=== PATIENT | female | born 1985 | race Two or more races ===

== ENCOUNTER 2020-10-01 12:47 | Outpatient (REF) | payer OTHER, SELFPAY ==
--- NOTE | ~2020-10-01 | XR_ITS ---
EXAMINATION: PELVIS AND LUMBAR SPINE X-RAY CLINICAL INFORMATION: Low back pain COMPARISON: CT of the abdomen and pelvis May 2019 TECHNIQUE: One view of the pelvis and 3 views of the lumbar lumbar spine FINDINGS: Pelvis: Bone alignment is normal. No fracture or dislocation is seen. Joint spaces are normal. Soft tissues are normal. Lumbar spine: There may be a transitional vertebral body segment. Bone alignment is normal. No fracture or dislocation is seen. Disc spaces are normal. Paraspinal soft tissues are normal. XR/XR lumbar spine 2-3V IMPRESSION: Unremarkable exam.
--- NOTE | ~2020-10-01 | XR_ITS ---
EXAMINATION: PELVIS AND LUMBAR SPINE X-RAY CLINICAL INFORMATION: Low back pain COMPARISON: CT of the abdomen and pelvis May 2019 TECHNIQUE: One view of the pelvis and 3 views of the lumbar lumbar spine FINDINGS: Pelvis: Bone alignment is normal. No fracture or dislocation is seen. Joint spaces are normal. Soft tissues are normal. Lumbar spine: There may be a transitional vertebral body segment. Bone alignment is normal. No fracture or dislocation is seen. Disc spaces are normal. Paraspinal soft tissues are normal. XR/XR pelvis 1-2V IMPRESSION: Unremarkable exam.
== END 2020-10-01 12:48 | disposition home or self-care (01) ==
LOC: HO.HMGCX 12:47
PROVIDERS: PCP Nurse Practitioner Family; Visit Provider Hospitalist
DX: M54.5 Low back pain (principal); G89.29 Other chronic pain
CPT/HCPCS: 72100; 72170

== ENCOUNTER 2020-11-29 10:00 | Outpatient (RCR) | payer OTHER, SELFPAY ==
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
--- NOTE | 2020-11-29 10:40 | MHC.PT.DC ---
[facility] [place] Office [place] Office [place] Office [address] Dom Mendez [address] [phone] F: [phone] F: [phone] F: [phone] F: [phone] Physical Therapy Discharge Report Diagnosis: Low Back Pain Date of Surgery: N/A Date of Evaluation: 10/18/20 Date of Discharge: 11/29/20 Treatments to Date: 8 Cancellations to Date: 1 No Shows to Date: 0 Discharge Status: Achieved Goals Improved Function Independent with HEP Patient Elected to Stop Discharge Summary: 11/29/20 lumbar trunk ROM extension WNL, flexion WNL hip flexion 5/5, knee extension/flexion 5/5, ankle DF 5/5, hip abd 5/5. Pt reports she is having significant scary chest pain that is concerning to her. She requested to be d/c. She said I am really feeling much better Pt is d/c from skilled PT today with a printed HEP and theraband. We reviewed her HEP and she reports understanding of HEP. Electronically signed by: Chikis Dye PT DPT Please sign and return to therapist. Thank you for your referral.
== END 2020-11-29 13:16 | disposition home or self-care (01) ==
LOC: HO.PT 10:00
PROVIDERS: PCP Nurse Practitioner Family; Visit Provider Hospitalist
DX: M54.5 Low back pain (principal)
CPT/HCPCS: 97110; 97112; 97140; 97162; 97530

== ENCOUNTER 2020-12-03 06:55 | Outpatient (REF) | payer OTHER, SELFPAY ==
[2020-12-03 11:58] LABS: Alanine Aminotransferase 75 U/L (0-31); Albumin Level 4.3 g/dL (3.5-5.0); Alkaline Phosphatase 83 U/L (39-117); Anion Gap 15 (12-20); Aspartate Amino Transferase 46 U/L (5-31); Bilirubin Total 0.5 mg/dL (0.0-1.0); Blood Urea Nitrogen 11 mg/dL (9-16); Calcium 9.7 mg/dL (8.4-10.2); Carbon Dioxide 26 mmol/L (22-29); Chloride 102 mmol/L (96-108); Cholesterol 176 mg/dL; Estimated Glomerular Filt Rate > 60; Glucose Fasting 149 mg/dL (60-99); HDL Cholesterol 42 mg/dL; LDL Cholesterol Calculated 111 mg/dl; Potassium 4.5 mmol/L (3.3-5.1); Sodium 138 mmol/L (135-145); Total Protein 7.5 g/dL (6.5-8.0); Triglycerides 115 mg/dL
[2020-12-03 12:04] LABS: TSH reflex Free T4 1.49 uIU/mL (0.32-4.0)
== END 2020-12-03 06:56 | disposition home or self-care (01) ==
LOC: HO.HMGCLDS 06:55
PROVIDERS: PCP Nurse Practitioner Family; Visit Provider Nurse Practitioner Family
DX: Z00.00 Encounter for general adult medical examination without abnormal findings (principal)
CPT/HCPCS: 36415; 80053; 80061; 84443

== ENCOUNTER 2020-12-05 07:26 | Outpatient (REF) | payer OTHER, SELFPAY ==
[2020-12-05 11:53] LABS: Estimated Average Glucose 140 mg/dL; Hemoglobin A1c % 6.5 %
[2020-12-05 12:00] LABS: Hepatitis A Antibody IgM 0.16 Index (0-0.79); ~HepC Num1 0.07 S/CO (0.00-0.79); ~Hepatitis A Antibody IgM Nonreactive (Nonreactive); ~Hepatitis C Antibody Nonreactive (Nonreactive)
[2020-12-05 12:03] LABS: HBc Num1 0.03 S/CO (0.00-0.79); Hepatitis B Core Antibody Nonreactive (Nonreactive); Hepatitis B Surface Antigen Negative (Negative); ~Hepatitis B Surface Antibody REACTIVE (Nonreactive)
== END 2020-12-05 07:27 | disposition home or self-care (01) ==
LOC: HO.HMGCLDS 07:26
PROVIDERS: PCP Nurse Practitioner Family; Visit Provider Nurse Practitioner Family
DX: R73.01 Impaired fasting glucose (principal); R74.8 Abnormal levels of other serum enzymes
CPT/HCPCS: 36415; 83036; 86704; 86706; 86709; 86803; 87340

== ENCOUNTER 2020-12-18 09:12 | Outpatient (REF) | payer OTHER, SELFPAY ==
--- NOTE | ~2020-12-18 | US_ITS ---
EXAMINATION: US ABDOMEN COMPLETE CLINICAL INFORMATION: Abnormal levels of other serum enzymes. COMPARISON: Ultrasound abdomen complete dated 07/11/2019. CT abdomen and pelvis with intravenous contrast only dated 05/21/2019. TECHNIQUE: Real-time imaging of the abdominal viscera. FINDINGS: PANCREAS: Normal. There is a 1.4 x 0.7 x 1.7 cm hypoechoic lesion adjacent to the head of the pancreas probably representing a small lymph node. This is similar to previous exam. ABDOMINAL AORTA: The proximal, mid, and distal segments are normal in caliber. INFERIOR VENA CAVA: Visualized portions are normal. LIVER: Liver echotexture is slightly increased probably representing fatty infiltration. The liver is normal in size. The liver contour is normal. There is a 8 x 7 x 7 mm echogenic lesion in the right lobe of liver. This is not appreciated on previous exams 2018. There is no intrahepatic biliary duct dilatation seen. GALLBLADDER: The gallbladder is physiologically distended. There is a large 3 cm gallstone. No evidence of gallbladder wall thickening or pericholecystic fluid. COMMON BILE DUCT: Normal in caliber measuring 0.3 cm in diameter. RIGHT KIDNEY: Normal No hydronephrosis. No renal calculi or focal parenchymal lesions. The kidney measures 13.6 cm in maximum dimension. LEFT KIDNEY: There is a small cyst in the midpole measuring 8 x 6 x 8 mm. No hydronephrosis or renal calculi. The kidney measures 13.1 cm in maximum dimension. SPLEEN: Normal. The spleen measures 9.2 cm in maximum dimension. FREE FLUID: None. US/US abdomen complete IMPRESSION: Increased liver echotexture probably representing mild fatty infiltration. Newly appreciated 8 x 7 x 7 mm hyperechoic lesion in the right lobe of the liver, question representing a benign hemangioma. This could be confirmed with liver MRI. Gallstone. Small peripancreatic lymph node similar to previous exams.
== END 2020-12-18 09:13 | disposition home or self-care (01) ==
LOC: HO.US 09:12
PROVIDERS: Visit Provider Nurse Practitioner Family
DX: R74.8 Abnormal levels of other serum enzymes (principal)
CPT/HCPCS: 76700

== ENCOUNTER 2020-12-20 12:12 | Outpatient (REF) | payer OTHER, SELFPAY ==
--- NOTE | ~2020-12-20 | MR_ITS ---
EXAMINATION: MRI ABDOMEN WITHOUT AND WITH CONTRAST CLINICAL INFORMATION: Liver disease. Evaluate for fatty change. The report of ultrasound 12/18/2020 indicates 0.8 cm hyperechoic lesion in the right lobe of the liver. Further characterization requested. COMPARISON: Selected portions of ultrasound 12/18/2020. TECHNIQUE: Anatomic and fluid sensitive MR sequences were used to examine the abdomen. Imaging before and after the IV administration of 10 mL of Gadavist. FINDINGS: LIVER: The right lobe of the liver measures 21.9 cm. This is greater than 2 standard deviations above the mean expected. The liver contour is smooth. There is diffuse signal loss consistent with fatty change. There is no suspicious early enhancing liver lesion. There is an equivocal tiny signal abnormality in the periphery of the right lobe of the liver in the plane of the portal vein slightly posteriorly which is hypointense after contrast. This is equivocally hyperintense prior to contrast on T2 series. BILIARY TRACT: There is cholelithiasis. There is no biliary dilation. SPLEEN: The spleen measures approximately 10.5 cm which is within normal limits. No focal abnormality. PANCREAS: Normal. ADRENAL GLANDS: Normal. KIDNEYS: There is no dilation of the urinary collecting system on either side. There is a 1 cm cyst in the lower pole of the left kidney. This does not require any further evaluation. GASTROINTESTINAL TRACT: There is no definite bowel wall thickening. No small bowel dilation demonstrated. ABDOMINAL WALL: No significant hernia is appreciated. LYMPHOVASCULAR STRUCTURES AND FLUID: There is no abdominal aortic aneurysm. The portal vein enhances. There are no enlarged lymph nodes. There is no free fluid. MUSCULOSKELETAL: Probable hemangioma T12. VISUALIZED LOWER CHEST: No suspicious abnormality in the visualized lower chest. MR/MR abdomen wo/w con IMPRESSION: At least moderate hepatomegaly with fatty change. No suspicious early enhancing liver lesion. No suspicious correlate to the finding on ultrasound. There is an equivocal tiny signal abnormality in the right lobe which could be a cyst and has no suspicious features. Recommend a follow-up ultrasound in 6 months to reassess the sonographic finding.
== END 2020-12-20 12:13 | disposition home or self-care (01) ==
LOC: HO.MRI 12:12
PROVIDERS: Visit Provider Nurse Practitioner Family
DX: K76.9 Liver disease, unspecified (principal)
CPT/HCPCS: 74183; A9585

== ENCOUNTER 2020-12-28 10:53 | Outpatient (REF) | payer OTHER, SELFPAY ==
[2020-12-28 13:25] LABS: Glucose Fasting 115 mg/dL (60-99)
[2020-12-28 13:54] LABS: Syphilis Screen Nonreactive (Nonreactive)
[2020-12-29 02:30] LABS: CT PCR NOT DETECTED (Not Detect.); NG PCR NOT DETECTED (Not Detect.)
[2020-12-29 11:49] LABS: BV Int Neg Control Negative (Negative); BV Int Pos Control Positive (Positive)
[2021-01-01 04:46] LABS: HIV AB/AG Nonreactive (Nonreactive); HIV Num 1 0.08 S/CO (0.00-0.99)
== END 2020-12-28 10:54 | disposition home or self-care (01) ==
LOC: HO.LAB 10:53
PROVIDERS: PCP Nurse Practitioner Family; Visit Provider Advanced Practice Midwife
DX: Z01.419 Encounter for gynecological examination (general) (routine) without abnormal findings (principal); R73.01 Impaired fasting glucose; E66.01 Morbid (severe) obesity due to excess calories; Z68.43 Body mass index [BMI] 50.0-59.9, adult; Z20.2 Contact with and (suspected) exposure to infections with a predominantly sexual mode of transmission
CPT/HCPCS: 36415; 82947; 86780; 87389; 87480; 87491; 87510; 87591; 87660

== ENCOUNTER 2021-12-17 11:17 | Emergency (ER) | payer OTHER, SELFPAY ==
[2021-12-17 12:11] VITALS: BP 161/96; PULSE 77; RESP 18; TEMP 35.9; O2SAT 98; BMI 44.6
--- NOTE | 2021-12-17 13:45 | ED.GENADULT ---
HPI - General Adult General Chief complaint: General Medical Stated complaint: facial swelling Time Seen by Provider: 12/17/21 13:45 Source: patient Mode of arrival: ambulatory Limitations: no limitations History of Present Illness HPI narrative: 36-year-old female diagnosed with lupus in 2013 presents with 1 month of butterfly facial rash. Patient saw rheumatology once in 2013, but has had her lupus managed by her PCP and a courtesy bus driver. Loan Interviewer had prescribed steroid ointment for butterfly rash 4 years ago, she is trying the steroid ointment and it is not working. The rash is not itchy, not painful. Patient recently took a trip to [place], being in the sun made her rash worse. No fevers. No other complaints Related Data Previous Rx's Medication Instructions Recorded prednisone 20 mg tablet 20 mg PO DAILY 9 Days #18 tab 12/17/21 Allergies Allergy/AdvReac Type Severity Reaction Status Date / Time nickel [NICKEL] Allergy Unknown HIVES Verified 12/17/21 12:11 Nickel Allergy Unknown hives Uncoded 12/28/20 11:07 Review of Systems Constitutional: Constitutional: Denies body ache(s), Denies chills, Denies fatigue, Denies fever(s), Denies headache(s), Denies malaise and Denies weakness Eyes: Eyes: Denies diplopia ENT: Denies vertigo, Denies dizziness, Denies otalgia, Denies headache(s), Denies mouth pain, Denies post nasal drip, Denies sinus pain, Denies sinus pressure, Denies sore throat and Denies throat swelling Cardiovascular: Cardiovascular: Denies chest pain, Denies syncope, Denies leg edema, Denies lightheadedness, Denies Loss of Consciousness, Denies palpitations and Denies dyspnea Respiratory: Respiratory: Denies chest congestion, Denies cough and Denies dyspnea Gastrointestinal: Gastrointestinal: Denies abdominal pain, Denies hematochezia, Denies constipation, Denies diarrhea and Denies vomiting Musculoskeletal: Musculoskeletal: Reports no additional musculoskeletal complaints Integumentary/Breasts: Skin/Breast: Reports rash Neurologic: Denies confusion, Denies vertigo, Denies dizziness, Denies syncope, Denies headache(s) and Denies weakness Psychiatric: Psychiatric: Denies anxiety, Denies confusion and Denies depression Endocrine: Endocrine: Denies fatigue and Denies palpitations Allergic/Immunologic: Allergic/Immunologic: Denies throat swelling PMFSH Past Medical History Medical History Anxiety Carpal tunnel syndrome, bilateral Cervical cancer screening Depression Hidradenitis suppurativa Substance abuse Surgical History H/O tubal ligation Hx of section Family History Family History Mother Diabetes Hypertension Social History Social History (Updated 12/28/20 @ 11:08 by Sarwat Estrada CMA) Alcohol intake: current Alcohol intake frequency: holidays/special occasions only Patient Tobacco Use Status: Former Tobacco user Advance Directives: No Advance Directives Information Provided: No Gender identity: Female Physical Exam ED Vital Signs: Vital Signs - 24 hr 12/17/21 12:11 Temperature 96.6 F L Pulse Rate 77 Respiratory Rate 18 Blood Pressure 161/96 H Pulse Oximetry 98 BMI result Body Mass Index 44.6 Const General: No confusion Nutritional Appearance: well nourished Orientation/consciousness: No confusion Limitations: no limitations HENMT Head: Yes normal to inspection, Yes normocephalic and Yes atraumatic Ears: hearing grossly normal bilaterally, external ears normal, TM's normal bilaterally and EAC's normal General nose exam: Normal external nose present Face and sinus: Yes normal facial exam and Yes sinuses nontender Mouth: Normal oral and palatal mucosa present Throat: Yes posterior oropharynx normal Eyes Conjunctivae: conjunctivae normal Pupils: Equal, round and reactive pupils present EOM: EOMs intact bilaterally Neck Neck: Yes full ROM, Yes no lymphadenopathy and Yes supple Resp Effort & Inspection: normal respiratory effort and able to speak in complete sentences Auscultation: clear to auscultation bilaterally, no crackles, no rales, no rhonchi and no wheezes Cardio Rate: regular rate Rhythm: regular rhythm Heart sounds: S1 normal heart sound present and S2 normal heart sound present GI Inspection: Yes normal to inspection Palpation (GI): Soft to palpation, nontender, no guarding and not rigid Percussion: Yes normal to percussion Auscultation: normal bowel sounds Skin Other: Erythematous swollen butterfly rash sparing nasal folds bilateral cheeks Neuro General: No confusion Cranial nerves: Yes Equal, round and reactive pupils present Extrem General: Yes normal to inspection and Yes full ROM Psych Appearance: grossly normal Affect: normal affect Attitude: cooperative Thought process: Normal thought process present Course Course Course Narrative: 36-year-old female with past medical history of lupus which is managed by her primary care, presents for one-month malar rash in a butterfly distribution Referred patient to courtesy bus driver, patient has a follow-up appoint with her primary care provider at the end of the month, counseled her to discuss rheumatology referral at that time. Gave prednisone taper, return precautions of fever Discharge Plan Discharge Clinical Impression: Acute cutaneous lupus erythematosus Patient Disposition: Home, Self-Care Instructions: Autoimmune Disease (ED) Additional Instructions: Please call Dr Westfall, at [phone]. He has a courtesy bus driver, I have referred you to him, if you do not hear from him by tomorrow, please call for an appointment. I have prescribed a prednisone taper to her pharmacy, please take as directed Please keep your primary care appointment December 31, and discuss referral to a rehabilitation medicine physician at that time, and discuss any treatment your courtesy bus driver has recommended Please return to emergency room if you have fevers, worsening rash, chest pain, shortness of breath, or any other new or concerning symptoms Prescriptions: New prednisone 20 mg tablet 20 mg PO DAILY 9 Days Qty: 18 0RF Rx Instructions: Take 3 tablets day 1, 2, and 3, take 2 tablets day 4, 5, 6, take 1 tablet days 7, 8, 9 Referrals: Pablo Westfall MD [Physician] - Interventions: ED Discharge Assessment Last Done: 12/17/21 14:17 Discharge Date/Time: 12/17/21 14:18
== END 2021-12-17 14:18 | disposition home or self-care (01) ==
PROVIDERS: Emergency Provider Emergency Medicine; PCP Nurse Practitioner Family
DX: L93.0 Discoid lupus erythematosus (principal); Z87.891 Personal history of nicotine dependence
CPT/HCPCS: 99283

== ENCOUNTER 2022-01-08 07:00 | Emergency (ER) | payer OTHER, SELFPAY ==
--- NOTE | ~2022-01-08 | US_ITS ---
EXAMINATION: US ABDOMEN LIMITED CLINICAL INFORMATION: Right upper quadrant pain. Question cholecystitis.. COMPARISON: Abdominal MRI 12/20/2020 and abdominal ultrasound the 2020 TECHNIQUE: Real-time imaging of the right upper quadrant abdominal viscera. FINDINGS: PANCREAS: Visualized portions of pancreas are normal in appearance. 1.2 cm hypoechoic focus adjacent the pancreatic head is again identified and although nonspecific is most suggestive of a small lymph node. LIVER: The liver is normal in size. The liver contour is normal. liver echogenicity is within normal limits on today's ultrasound. Previously identified 8 mm echogenic focus of the right hepatic lobe is not clearly identified on today's imaging. There is no intrahepatic biliary duct dilatation seen. GALLBLADDER: The gallbladder is visualized within it. Gallstones are noted. The gallbladder wall is mildly thickened in regions measuring up to 7 mm. There is mild fluid noted within the gallbladder wall. Ringdown artifact suggestive adenomyomatosis. Positive sonographic White's sign. COMMON BILE DUCT: Normal in caliber measuring 0.7 cm in diameter. RIGHT KIDNEY: Normal. No hydronephrosis. No renal calculi or focal parenchymal lesions. The kidney measures 13.9 cm in maximum dimension. FREE FLUID: None. US/US abdomen limited IMPRESSION: -Cholelithiasis in this setting of gallbladder wall thickening and mild fluid within the gallbladder wall with a positive sonographic White's sign are suggestive of acute cholecystitis. Clinical correlation is recommended. HIDA imaging can be obtained as clinically indicated.
[2022-01-08 07:11] VITALS: BP 179/98; PULSE 100; RESP 20; TEMP 37.4; O2SAT 98; BMI 48.0
[2022-01-08 07:24] VITALS: BP 164/93; PULSE 73; RESP 22; O2SAT 98
--- NOTE | 2022-01-08 07:49 | ED_ITS ---
HPI - Abdominal Pain General Chief Complaint: Abdominal Pain Stated Complaint: Abd pain/SOB Time Seen by Provider: 01/08/22 07:40 Source: patient and old records reviewed History of Present Illness HPI narrative: Patient complaining of severe right upper quadrant abdominal pain that started at 2 in the morning. She when out to dinner at a [employer] food restaurant last night. positive nausea vomiting No diarrhea No fevers or chills She has a history of a gallstone but no history of cholecystitis or abdominal surgery. She has been worked up for fatty liver and a potential hepatic mass but had an MRI of the abdomen last year which showed no evidence of the lesion. She is due for repeat ultrasound for follow-up. She took Tums without relief. She denies other complaints or sick contacts. Related Data Previous Rx's Medication Instructions Recorded prednisone 20 mg tablet 20 mg PO DAILY 9 days #18 tabs 12/17/21 amoxicillin 500 mg-potassium 1 tab PO TID #30 tabs 01/08/22 clavulanate 125 mg tablet (Augmentin) oxycodone-acetaminophen 5 mg-325 1 tab PO TID PRN pain #6 tabs 01/08/22 mg tablet (Percocet) Allergies Allergy/AdvReac Type Severity Reaction Status Date / Time nickel [NICKEL] Allergy Unknown HIVES Verified 12/31/21 07:34 Nickel Allergy Unknown hives Uncoded 12/31/21 07:34 Review of Systems Comments: No fevers or chills Comments: no chest pain Comments: no cough or dyspnea Comments: abdominal pain nausea vomiting is described Comments: no urinary symptoms Comments: no back pain Comments: no new rash but patient has history of lupus with malar rash chronically Comments: no weakness PMFSH Past Medical History Medical History Anxiety Carpal tunnel syndrome, bilateral Cervical cancer screening Depression Hidradenitis suppurativa Substance abuse Surgical History H/O tubal ligation Hx of section Family History Family History Mother Diabetes Hypertension Social History Social History (Updated 12/28/20 @ 11:08 by Sarwat Estrada CMA) Alcohol intake: current Alcohol intake frequency: holidays/special occasions only Patient Tobacco Use Status: Former Tobacco user Advance Directives: No Advance Directives Information Provided: No Gender identity: Female Physical Exam ED Vital Signs: Vital Signs - 24 hr 01/08/22 07:11 01/08/22 07:24 01/08/22 08:06 Temperature 99.3 F Pulse Rate 100 73 Respiratory Rate 20 22 H 18 Blood Pressure 179/98 H 164/93 H Pulse Oximetry 98 98 Oxygen Delivery Method Room Air Room Air 01/08/22 10:05 Temperature 97.9 F Pulse Rate 73 Respiratory Rate 16 Blood Pressure 129/74 Pulse Oximetry 97 Oxygen Delivery Method Room Air BMI result Body Mass Index 48.0 Const Other: awake and alert. Appears uncomfortable. Standing in states unable to sit down HENMT Other: malar rash Resp Other: clear and equal bilaterally Cardio Other: regular rate and rhythm without murmurs rubs or gallops GI Other: mildly distended. Soft. Normal bowel sounds. Tender right upper quadrant with guarding Skin Other: warm pink and dry. Rash as described Neuro Other: ambulatory without difficulty. Alert and oriented Course Course Course Narrative: severe abdominal pain Cholecystitis Choledocholithiasis Pancreatitis Gastroenteritis Peptic ulcer disease Treated with IV fluids Dilaudid Zofran Ultrasound ordered 09:24. Patient is feeling much better. Resting comfortably in bed. Lab work is normal with normal bilirubin. Her transaminases are mildly elevated but at her baseline. Ultrasound shows cholelithiasis with gallbladder wall thickening or pericholecystic fluid. Surgery, Dr. Vega, consulted and will be by to see patient. 11:15. Patient seen by surgery. She is stable for discharge home for outpatient follow-up of likely elective cholecystectomy. MDM - Abdominal Pain Lab Data Result diagrams: 01/08/22 08:02 01/08/22 08:02 Labs: Lab Results 01/08/22 01/08/22 01/08/22 Range/Units 08:02 08:02 08:02 WBC 8.4 (4.8-10.8) X10*3/uL RBC 5.53 H (4.20-5.50) X10*6/uL Hgb 14.5 (12.0-16.0) g/dl Hct 44.4 (37.0-47.0) % MCV 80.3 (80.0-98.0) fL MCH 26.2 L (27.0-33.0) pg MCHC 32.7 (31.0-35.0) g/dl RDW 14.1 (11.0-16.0) % Plt Count 282 (160-400) X10*3/uL MPV 9.4 (9.4-12.3) fL Immature Gran % (Auto) 0.2 (0.0-0.4) % Neut % (Auto) 70.6 (45-73) % Lymph % (Auto) 22.6 (20-40) % [place] % (Auto) 5.4 (2-11) % Eos % (Auto) 1.1 (0-4) % Baso % (Auto) 0.1 (0-2) % Lymph # (Auto) 1.9 (1.2-4.9) X10*3/uL [place] # (Auto) 0.5 (0.1-1.2) X10*3/uL Eos # (Auto) 0.1 (0.0-0.4) X10*3/uL Baso # (Auto) 0.0 (0.0-0.2) X10*3/uL Abs Immat Gran (auto) 0.02 (0.00-0.03) X10*3/uL Absolute Neuts (auto) 5.9 (2.0-8.3) x10*3/uL Absolute Nucleated RBC 0.000 (0.0-0.012) X10*3/uL Nucleated RBC % (auto) 0.0 (0.0-0.2) /100WBC Sodium 136 (135-145) mmol/L Potassium 4.3 (3.3-5.1) mmol/L Chloride 105 (96-108) mmol/L Carbon Dioxide 24 (22-29) mmol/L Anion Gap 11 L (12-20) BUN 9 (9-16) mg/dL Creatinine 0.70 (0.5-1.4) mg/dL Estim Creat Clear Calc 148.1 Estimated GFR > 60 Random Glucose 186 H (60-115) mg/dL Lactic Acid 1.1 (0.5-2.0) mmol/L Calcium 10.0 (8.4-10.2) mg/dL Total Bilirubin 0.4 (0.0-1.0) mg/dL AST 46 H (5-31) U/L ALT 72 H (0-31) U/L Alkaline Phosphatase 81 (39-117) U/L Total Protein 7.3 (6.5-8.0) g/dL Albumin 4.2 (3.5-5.0) g/dL Lipase 10 (8-78) U/L Urine Color Urine Appearance Urine pH (5.0-8.0) Ur Specific [place] (1.005-1.025) Urine Protein (NEG-TRACE) MG/DL Urine Glucose (UA) (NEG) MG/DL Urine Ketones (NEG) MG/DL Urine Blood (NEG) Urine Nitrite (NEG) Ur Leukocyte Esterase (NEG) COVID-19 (LAKESHIA) (Negative) COVID-19 Clin Com 01/08/22 01/08/22 Range/Units 08:02 10:49 WBC (4.8-10.8) X10*3/uL RBC (4.20-5.50) X10*6/uL Hgb (12.0-16.0) g/dl Hct (37.0-47.0) % MCV (80.0-98.0) fL MCH (27.0-33.0) pg MCHC (31.0-35.0) g/dl RDW (11.0-16.0) % Plt Count (160-400) X10*3/uL MPV (9.4-12.3) fL Immature Gran % (Auto) (0.0-0.4) % Neut % (Auto) (45-73) % Lymph % (Auto) (20-40) % [place] % (Auto) (2-11) % Eos % (Auto) (0-4) % Baso % (Auto) (0-2) % Lymph # (Auto) (1.2-4.9) X10*3/uL [place] # (Auto) (0.1-1.2) X10*3/uL Eos # (Auto) (0.0-0.4) X10*3/uL Baso # (Auto) (0.0-0.2) X10*3/uL Abs Immat Gran (auto) (0.00-0.03) X10*3/uL Absolute Neuts (auto) (2.0-8.3) x10*3/uL Absolute Nucleated RBC (0.0-0.012) X10*3/uL Nucleated RBC % (auto) (0.0-0.2) /100WBC Sodium (135-145) mmol/L Potassium (3.3-5.1) mmol/L Chloride (96-108) mmol/L Carbon Dioxide (22-29) mmol/L Anion Gap (12-20) BUN (9-16) mg/dL Creatinine (0.5-1.4) mg/dL Estim Creat Clear Calc Estimated GFR Random Glucose (60-115) mg/dL Lactic Acid (0.5-2.0) mmol/L Calcium (8.4-10.2) mg/dL Total Bilirubin (0.0-1.0) mg/dL AST (5-31) U/L ALT (0-31) U/L Alkaline Phosphatase (39-117) U/L Total Protein (6.5-8.0) g/dL Albumin (3.5-5.0) g/dL Lipase (8-78) U/L Urine Color YELLOW Urine Appearance HAZY Urine pH 5.5 (5.0-8.0) Ur Specific [place] 1.015 (1.005-1.025) Urine Protein NEG (NEG-TRACE) MG/DL Urine Glucose (UA) NEG (NEG) MG/DL Urine Ketones 15 (NEG) MG/DL Urine Blood NEG (NEG) Urine Nitrite NEG (NEG) Ur Leukocyte Esterase NEG (NEG) COVID-19 (LAKESHIA) Negative (Negative) COVID-19 Clin Com See Note Discharge Plan Discharge Clinical Impression: Cholelithiasis Patient Disposition: Home, Self-Care Instructions: Gallstones (ED) Prescriptions: New amoxicillin-pot clavulanate [Augmentin] 500-125 mg tablet 1 tab PO TID Qty: 30 0RF oxycodone-acetaminophen [Percocet] 5-325 mg tablet 1 tab PO TID PRN (Reason: pain) Qty: 6 0RF Rx Instructions: Partial Fill upon patient request. No Action prednisone 20 mg tablet 20 mg PO DAILY 9 Days Qty: 18 0RF Rx Instructions: Take 3 tablets day 1, 2, and 3, take 2 tablets day 4, 5, 6, take 1 tablet days 7, 8, 9 Referrals: Pete Vega MD [Physician] -
[2022-01-08] MEDS: ondansetron HCL 4 MG/2 ML VIAL IVPUSH (08:04)
[2022-01-08] MEDS: Ketorolac Tromethamine 15 MG/ML VIAL 30 MG IVPUSH (08:05)
[2022-01-08 08:06] VITALS: RESP 18
[2022-01-08] MEDS: HYDROmorphone HCl 1 MG/ML SYRINGE IVPUSH (08:06)
[2022-01-08] MEDS: 0.9 % Sodium Chloride 1,000 ML 999 ML IV (08:07)
[2022-01-08 08:09] LABS: MANUAL DIFF FLAG NO
[2022-01-08 08:10] LABS: Basophils Percent Auto 0.1 % (0-2); Eosinophils Absolute Auto 0.1 X10*3/uL (0.0-0.4); Eosinophils Percent Auto 1.1 % (0-4); Hematocrit 44.4 % (37.0-47.0); Hemoglobin 14.5 g/dl (12.0-16.0); Imm Gran Abs Auto 0.02 X10*3/uL (0.00-0.03); Imm Gran Pct Auto 0.2 % (0.0-0.4); Lymphocytes Absolute Auto 1.9 X10*3/uL (1.2-4.9); Lymphocytes Percent Auto 22.6 % (20-40); Mean Corpuscular HGB Conc 32.7 g/dl (31.0-35.0); Mean Corpuscular Hemoglobin 26.2 pg (27.0-33.0); Mean Corpuscular Volume 80.3 fL (80.0-98.0); Mean Platelet Volume 9.4 fL (9.4-12.3); Monocytes Absolute Auto 0.5 X10*3/uL (0.1-1.2); Monocytes Percent Auto 5.4 % (2-11); Neutrophils Absolute Auto 5.9 x10*3/uL (2.0-8.3); Neutrophils Percent Auto 70.6 % (45-73); Platelet Count 282 X10*3/uL (160-400); Red Blood Count 5.53 X10*6/uL (4.20-5.50); Red Cell Distribution Width 14.1 % (11.0-16.0); White Blood Count 8.4 X10*3/uL (4.8-10.8)
[2022-01-08 08:24] LABS: COVID-19 Test Negative (Negative); IDNOW Serial# 16C4AD1C
[2022-01-08 08:27] LABS: Lactic Acid 1.1 mmol/L (0.5-2.0)
[2022-01-08 08:31] LABS: Alanine Aminotransferase 72 U/L (0-31); Albumin Level 4.2 g/dL (3.5-5.0); Alkaline Phosphatase 81 U/L (39-117); Anion Gap 11 (12-20); Aspartate Amino Transferase 46 U/L (5-31); Bilirubin Total 0.4 mg/dL (0.0-1.0); Blood Urea Nitrogen 9 mg/dL (9-16); Carbon Dioxide 24 mmol/L (22-29); Chloride 105 mmol/L (96-108); Creatinine Clr Calc Pharmacy 148.1; Estimated Glomerular Filt Rate > 60; Glucose Random 186 mg/dL (60-115); Lipase 10 U/L (8-78); Potassium 4.3 mmol/L (3.3-5.1); Sodium 136 mmol/L (135-145); Total Protein 7.3 g/dL (6.5-8.0)
[2022-01-08 10:05] VITALS: BP 129/74; PULSE 73; RESP 16; TEMP 36.6; O2SAT 97
[2022-01-08 10:55] LABS: Appearance Urine HAZY; Color Urine YELLOW; Glucose Urine UA NEG (NEG); Leukocyte Esterase Urine NEG (NEG); Nitrite Urine NEG (NEG); PH 5.5 (5.0-8.0); Specific Gravity - Urine 1.015 (1.005-1.025); Urine Blood NEG (NEG); Urine Ketones 15 MG/DL (NEG); Urine Protein NEG (NEG-TRACE)
--- NOTE | 2022-01-08 12:03 | P.CONGS_ITS ---
History of Present Illness Consult details Consult date: 01/08/22 Narrative: 36-year-old female who came to the ER because of right-sided abdominal pain. She says that this started about 03:00 o'clock in the morning. She says she went to bed last night without any problems. The pain had persisted so she came to the emergency room early this morning. She had an ultrasound showing g allstones with some mild thickening of the gallbladder wall. She however says that her pain has completely resolved since he came to the ER. She says she has had no pain for several hours now. Review of her records show that she had gallstones on her previous imaging studies as well. Review of Systems Constitutional: Constitutional: Denies chills and Denies fever(s) Cardiovascular: Cardiovascular: Denies chest pain, Denies dyspnea and Denies dyspnea on exertion Respiratory: Respiratory: Denies cough, Denies dyspnea and Denies dyspnea on exertion Gastrointestinal: Gastrointestinal: Denies hematochezia and Denies change in bowel habits Genitourinary: Genitourinary: Denies hematuria Musculoskeletal: Musculoskeletal: Denies back pain and Denies limited range of motion Neurologic: Denies focal weakness and Denies convulsions Psychiatric: Psychiatric: Denies depression and Denies mood swings PMFSH Past Medical History Medical History (Updated 01/08/22 @ 12:05 by Pete Vega MD) Anxiety Carpal tunnel syndrome, bilateral Cervical cancer screening Depression Hidradenitis suppurativa Lupus Morbid obesity Substance abuse Family History Family History Mother Diabetes Hypertension Surgical History Surgical History H/O tubal ligation Hx of section Social History Social History (Updated 12/28/20 @ 11:08 by Sarwat Estrada CMA) Alcohol intake: current Alcohol intake frequency: holidays/special occasions only Patient Tobacco Use Status: Former Tobacco user Advance Directives: No Advance Directives Information Provided: No Gender identity: Female Meds Allergies Allergy/AdvReac Type Severity Reaction Status Date / Time nickel [NICKEL] Allergy Unknown HIVES Verified 12/31/21 07:34 Nickel Allergy Unknown hives Uncoded 12/31/21 07:34 Physical Exam Vital Signs: Vital Signs: Last Vital Signs Temp 97.9 F 01/08/22 10:05 Pulse 73 01/08/22 10:05 Resp 16 01/08/22 10:05 BP 129/74 01/08/22 10:05 Pulse Ox 97 01/08/22 10:05 O2 Del Method 01/08/22 10:05 BMI result Body Mass Index 48.0 Const: Other: morbidly obese General: comfortable and no acute distress Orientation/consciousness: patient oriented x3 Neck: Neck: Yes no lymphadenopathy Resp: Auscultation: clear to auscultation bilaterally Cardio: Rhythm: regular rhythm GI: Other: no tenderness, no White's sign Palpation (GI): Soft to palpation, nontender and no guarding Neuro: General: patient oriented x3 Results Labs Result diagrams: 01/08/22 08:02 01/08/22 08:02 Labs: Abnormal lab results 01/08/22 01/08/22 Range/Units 08:02 08:02 RBC 5.53 H (4.20-5.50) X10*6/uL MCH 26.2 L (27.0-33.0) pg Anion Gap 11 L (12-20) Random Glucose 186 H (60-115) mg/dL AST 46 H (5-31) U/L ALT 72 H (0-31) U/L Short CBC 01/08/22 Range/Units 08:02 WBC 8.4 (4.8-10.8) X10*3/uL Hgb 14.5 (12.0-16.0) g/dl Hct 44.4 (37.0-47.0) % Plt Count 282 (160-400) X10*3/uL BMP 01/08/22 08:02 Sodium 136 Potassium 4.3 Chloride 105 Carbon Dioxide 24 BUN 9 Creatinine 0.70 Calcium 10.0 Liver Function 01/08/22 Range/Units 08:02 Total Bilirubin 0.4 (0.0-1.0) mg/dL AST 46 H (5-31) U/L ALT 72 H (0-31) U/L Alkaline Phosphatase 81 (39-117) U/L Albumin 4.2 (3.5-5.0) g/dL Urine 01/08/22 Range/Units 10:49 Urine Color YELLOW Urine Appearance HAZY Urine pH 5.5 (5.0-8.0) Ur Specific [place] 1.015 (1.005-1.025) Urine Protein NEG (NEG-TRACE) MG/DL Urine Glucose (UA) NEG (NEG) MG/DL All other labs normal. Imaging Additional studies: Laboratory Results WBC 8.4 X10*3/uL (4.8-10.8) 01/08/22 08:02 RBC 5.53 X10*6/uL (4.20-5.50) H 01/08/22 08:02 Hgb 14.5 g/dl (12.0-16.0) 01/08/22 08:02 Hct 44.4 % (37.0-47.0) 01/08/22 08:02 MCV 80.3 fL (80.0-98.0) 01/08/22 08:02 MCH 26.2 pg (27.0-33.0) L 01/08/22 08:02 MCHC 32.7 g/dl (31.0-35.0) 01/08/22 08:02 RDW 14.1 % (11.0-16.0) 01/08/22 08:02 Plt Count 282 X10*3/uL (160-400) 01/08/22 08:02 MPV 9.4 fL (9.4-12.3) 01/08/22 08:02 Immature Gran % (Auto) 0.2 % (0.0-0.4) 01/08/22 08:02 Neut % (Auto) 70.6 % (45-73) 01/08/22 08:02 Lymph % (Auto) 22.6 % (20-40) 01/08/22 08:02 [place] % (Auto) 5.4 % (2-11) 01/08/22 08:02 Eos % (Auto) 1.1 % (0-4) 01/08/22 08:02 Baso % (Auto) 0.1 % (0-2) 01/08/22 08:02 Lymph # (Auto) 1.9 X10*3/uL (1.2-4.9) 01/08/22 08:02 [place] # (Auto) 0.5 X10*3/uL (0.1-1.2) 01/08/22 08:02 Eos # (Auto) 0.1 X10*3/uL (0.0-0.4) 01/08/22 08:02 Baso # (Auto) 0.0 X10*3/uL (0.0-0.2) 01/08/22 08:02 Abs Immat Gran (auto) 0.02 X10*3/uL (0.00-0.03) 01/08/22 08:02 Absolute Neuts (auto) 5.9 x10*3/uL (2.0-8.3) 01/08/22 08:02 Absolute Nucleated RBC 0.000 X10*3/uL (0.0-0.012) 01/08/22 08:02 Nucleated RBC % (auto) 0.0 /100WBC (0.0-0.2) 01/08/22 08:02 Sodium 136 mmol/L (135-145) 01/08/22 08:02 Potassium 4.3 mmol/L (3.3-5.1) 01/08/22 08:02 Chloride 105 mmol/L (96-108) 01/08/22 08:02 Carbon Dioxide 24 mmol/L (22-29) 01/08/22 08:02 Anion Gap 11 (12-20) L 01/08/22 08:02 BUN 9 mg/dL (9-16) 01/08/22 08:02 Creatinine 0.70 mg/dL (0.5-1.4) 01/08/22 08:02 Estim Creat Clear Calc 148.1 01/08/22 08:02 Estimated GFR > 60 01/08/22 08:02 Random Glucose 186 mg/dL (60-115) H 01/08/22 08:02 Lactic Acid 1.1 mmol/L (0.5-2.0) 01/08/22 08:02 Calcium 10.0 mg/dL (8.4-10.2) 01/08/22 08:02 Total Bilirubin 0.4 mg/dL (0.0-1.0) 01/08/22 08:02 AST 46 U/L (5-31) H 01/08/22 08:02 ALT 72 U/L (0-31) H 01/08/22 08:02 Alkaline Phosphatase 81 U/L (39-117) 01/08/22 08:02 Total Protein 7.3 g/dL (6.5-8.0) 01/08/22 08:02 Albumin 4.2 g/dL (3.5-5.0) 01/08/22 08:02 Lipase 10 U/L (8-78) 01/08/22 08:02 Urine Color YELLOW 01/08/22 10:49 Urine Appearance HAZY 01/08/22 10:49 Urine pH 5.5 (5.0-8.0) 01/08/22 10:49 Ur Specific [place] 1.015 (1.005-1.025) 01/08/22 10:49 Urine Protein NEG MG/DL (NEG-TRACE) 01/08/22 10:49 Urine Glucose (UA) NEG MG/DL (NEG) 01/08/22 10:49 Urine Ketones 15 MG/DL (NEG) 01/08/22 10:49 Urine Blood NEG (NEG) 01/08/22 10:49 Urine Nitrite NEG (NEG) 01/08/22 10:49 Ur Leukocyte Esterase NEG (NEG) 01/08/22 10:49 COVID-19 (LAKESHIA) Negative (Negative) 01/08/22 08:02 COVID-19 Clin Com See Note 01/08/22 08:02 Impressions Abdomen Ultrasound 01/08/22 08:41 IMPRESSION: -Cholelithiasis in this setting of gallbladder wall thickening and mild fluid within the gallbladder wall with a positive sonographic White's sign are suggestive of acute cholecystitis. Clinical correlation is recommended. HIDA imaging can be obtained as clinically indicated. Assessment and Plan (1) Cholelithiasis: Status: Acute She had an episode of right-sided pain early this morning. She says this has completely resolved for several hours. She denies any pain or tenderness at this time. Exam does not reveal any White's sign. Her ultrasound does show gallstones which was seen as well on previous imaging studies. There is mild wall thickening. She does not have any leukocytosis and her LFTs are within normal I explained to her the option of proceeding with cholecystectomy. I explained the technique of laparoscopic cholecystectomy and possible open. I reviewed with her the risks, benefits, and alternatives. She stated that she is currently without any pain and does not want any surgery. She says that she has a friend who did not have cholecystectomy for gallstones but did not have symptoms after taking some natural remedies. She understands that there is a risk of her having pain again. She understands the risk of having cholecystitis in the future. She is very anxious about any surgery so she says she did not want to be admitted. She is comfortable enough to go home. She says she will see me in the office for follow-up. I discussed the above with the ER physician. Procedures Date of Service Date of Service: 01/08/22
== END 2022-01-08 11:37 | disposition home or self-care (01) ==
PROVIDERS: Emergency Provider Emergency Medicine; PCP Nurse Practitioner Family
DX: K80.20 Calculus of gallbladder without cholecystitis without obstruction (principal); R10.11 Right upper quadrant pain
CPT/HCPCS: 76705; 80053; 81003; 83605; 83690; 85025; 87635; 96361; 96374; 96375; 99284; J1170; J1885; J2405

== ENCOUNTER 2022-01-16 06:14 | Outpatient (REF) | payer OTHER, SELFPAY ==
[2022-01-16 11:09] LABS: MANUAL DIFF FLAG NO
[2022-01-16 11:23] LABS: Basophils Percent Auto 0.3 % (0-2); Eosinophils Absolute Auto 0.1 X10*3/uL (0.0-0.4); Eosinophils Percent Auto 1.3 % (0-4); Hematocrit 48.1 % (37.0-47.0); Hemoglobin 14.9 g/dl (12.0-16.0); Imm Gran Abs Auto 0.02 X10*3/uL (0.00-0.03); Imm Gran Pct Auto 0.3 % (0.0-0.4); Lymphocytes Absolute Auto 2.1 X10*3/uL (1.2-4.9); Lymphocytes Percent Auto 33.9 % (20-40); Mean Corpuscular Hemoglobin 25.6 pg (27.0-33.0); Mean Corpuscular Volume 82.6 fL (80.0-98.0); Mean Platelet Volume 9.8 fL (9.4-12.3); Monocytes Absolute Auto 0.4 X10*3/uL (0.1-1.2); Monocytes Percent Auto 6.9 % (2-11); Neutrophils Absolute Auto 3.6 x10*3/uL (2.0-8.3); Neutrophils Percent Auto 57.3 % (45-73); Platelet Count 282 X10*3/uL (160-400); Red Blood Count 5.82 X10*6/uL (4.20-5.50); Red Cell Distribution Width 14.6 % (11.0-16.0); White Blood Count 6.2 X10*3/uL (4.8-10.8)
[2022-01-16 11:25] LABS: Appearance Urine CLOUDY; Color Urine YELLOW; Glucose Urine UA NEG (NEG); Leukocyte Esterase Urine NEG (NEG); Nitrite Urine NEG (NEG); PH 5.5 (5.0-8.0); Specific Gravity - Urine >= 1.030 (1.005-1.025); UACC Culture Trigger NO; Urine Blood 2+ (NEG); Urine Ketones NEG (NEG); Urine Protein NEG (NEG-TRACE)
[2022-01-16 11:48] LABS: Amorphous Sediment Urine 3+ /LPF; Squamous Epithelial Cell Urine 1+ /LPF
[2022-01-16 11:49] LABS: RBC Urine 0-2 /HPF (0); WBC Urine 0 /HPF (0-4)
[2022-01-16 11:58] LABS: Alanine Aminotransferase 81 U/L (0-31); Albumin Level 4.1 g/dL (3.5-5.0); Alkaline Phosphatase 88 U/L (39-117); Anion Gap 11 (12-20); Aspartate Amino Transferase 47 U/L (5-31); Bilirubin Total 0.2 mg/dL (0.0-1.0); Blood Urea Nitrogen 12 mg/dL (9-16); Calcium 9.1 mg/dL (8.4-10.2); Carbon Dioxide 26 mmol/L (22-29); Chloride 106 mmol/L (96-108); Cholesterol 164 mg/dL; Estimated Glomerular Filt Rate > 60; Glucose Fasting 152 mg/dL (60-99); HDL Cholesterol 33 mg/dL; LDL Cholesterol Calculated 121 mg/dl; Potassium 4.7 mmol/L (3.3-5.1); Sodium 138 mmol/L (135-145); TSH reflex Free T4 1.99 uIU/mL (0.32-4.0); Total Protein 7.1 g/dL (6.5-8.0); Triglycerides 52 mg/dL
== END 2022-01-16 06:15 | disposition home or self-care (01) ==
LOC: HO.HMGCLDS 06:14
PROVIDERS: Visit Provider Nurse Practitioner Family
DX: M32.9 Systemic lupus erythematosus, unspecified (principal)
CPT/HCPCS: 36415; 80053; 80061; 81001; 84443; 85025

== ENCOUNTER 2022-01-24 10:15 | Outpatient (REF) | payer OTHER, SELFPAY ==
[2022-01-24 15:30] LABS: CT PCR NOT DETECTED (Not Detect.); NG PCR NOT DETECTED (Not Detect.)
[2022-01-25 15:08] LABS: BV Int Neg Control Negative (Negative); BV Int Pos Control Positive (Positive)
[2022-01-30 06:46] LABS: HPV mRNA E6/E7 rflx Not Detected (Not Detected)
== END 2022-01-24 10:16 | disposition home or self-care (01) ==
LOC: HO.LAB 10:15
PROVIDERS: Visit Provider Advanced Practice Midwife
DX: Z01.419 Encounter for gynecological examination (general) (routine) without abnormal findings (principal)
CPT/HCPCS: 87480; 87491; 87510; 87591; 87624; 87660; 88142

== ENCOUNTER 2022-02-04 10:00 | Outpatient (REF) | payer OTHER, SELFPAY ==
[2022-02-04 10:53] LABS: Appearance Urine CLOUDY; Color Urine YELLOW; Glucose Urine UA NEG (NEG); Leukocyte Esterase Urine NEG (NEG); Nitrite Urine NEG (NEG); PH 5.5 (5.0-8.0); Specific Gravity - Urine >= 1.030 (1.005-1.025); Urine Blood NEG (NEG); Urine Ketones NEG (NEG); Urine Protein TRACE MG/DL (NEG-TRACE)
[2022-02-04 11:21] LABS: C Reactive Protein 1.28 mg/dL (< or = 0.50)
[2022-02-04 11:33] LABS: Protein/Creatinine Ratio, Ur 0.07 (<0.2); Total Protein Urine Random 19 mg/dL (<12)
[2022-02-04 11:35] LABS: Erythrocyte Sedimentation Rate 7 MM/HR (0-20)
[2022-02-06 14:56] LABS: Anti Nuclear Antibody Screen NEGATIVE (NEGATIVE)
[2022-02-07 08:47] LABS: Anti DNA DS Antibody 1 IU/mL; SM/Ribonucleoprotein Ab <1.0 NEG AI (<1.0 NEG); Smith Protein <1.0 NEG AI (<1.0 NEG)
== END 2022-02-04 10:01 | disposition home or self-care (01) ==
LOC: HO.LAB 10:00
PROVIDERS: PCP Nurse Practitioner Family; Visit Provider Internal Medicine Rheumatology
DX: R76.8 Other specified abnormal immunological findings in serum (principal); L93.1 Subacute cutaneous lupus erythematosus
CPT/HCPCS: 36415; 81003; 84156; 85652; 86038; 86039; 86140; 86225; 86235; 99212

== ENCOUNTER 2022-02-05 14:15 | Outpatient (REF) | payer OTHER, SELFPAY ==
[2022-02-05 15:08] LABS: Estimated Average Glucose 169 mg/dL; Hemoglobin A1c % 7.5 %
== END 2022-02-05 14:16 | disposition home or self-care (01) ==
LOC: HO.LAB 14:15
PROVIDERS: PCP Nurse Practitioner Family; Visit Provider Surgery
DX: E66.01 Morbid (severe) obesity due to excess calories (principal); R73.01 Impaired fasting glucose; K76.9 Liver disease, unspecified; K80.20 Calculus of gallbladder without cholecystitis without obstruction; L93.1 Subacute cutaneous lupus erythematosus
CPT/HCPCS: 36415; 83036; 99202

== ENCOUNTER 2022-02-12 08:22 | Outpatient (REF) | payer OTHER, SELFPAY ==
--- NOTE | ~2022-02-12 | US_ITS ---
EXAMINATION: US ABDOMEN LIMITED CLINICAL INFORMATION: Liver disease. COMPARISON: Ultrasound abdomen limited 01/08/2022. Ultrasound abdomen complete 12/18/2020. MR abdomen 12/20/2020. TECHNIQUE: Real-time imaging of the right upper quadrant abdominal viscera. FINDINGS: PANCREAS: There is a small lymph node adjacent to the head of the pancreas measuring 1.8 x 0.6 x 1 cm. The pancreas is otherwise normal. LIVER: There is a 7 x 8 x 6 mm echogenic lesion in the right lobe of the liver. This is unchanged from previous ultrasound December 2020 probably represents a hemangioma. The liver is normal in size. The liver contour is normal. Parenchymal echogenicity is normal. There is no intrahepatic biliary duct dilatation seen. GALLBLADDER: The gallbladder is normal in size. There is a gallstone measures 3.2 x 1.5 x 2.2 cm. There is question of mild adenomyomatosis of the gallbladder wall. The gallbladder wall does not appear thickened. COMMON BILE DUCT: Normal in caliber measuring 0.63 cm in diameter. RIGHT KIDNEY: Normal. No hydronephrosis. No renal calculi or focal parenchymal lesions. The kidney measures 12.9 cm in maximum dimension. FREE FLUID: None. US/US abdomen limited IMPRESSION: 7 x 8 x 6 mm echogenic lesion in the right lobe the liver probably representing a benign hemangioma. Stable small periportal lymph node adjacent to the head of the pancreas. Gallstone. Probable adenomyomatosis of the gallbladder wall.
== END 2022-02-12 08:23 | disposition home or self-care (01) ==
LOC: HO.HMGCX 08:22
PROVIDERS: PCP Nurse Practitioner Family; Visit Provider Nurse Practitioner Family
DX: K76.9 Liver disease, unspecified (principal)
CPT/HCPCS: 76705

== ENCOUNTER → 2022-02-14 08:37 | Outpatient (BNVA) | payer OTHER, SELFPAY | PROVIDERS: PCP Nurse Practitioner Family; Visit Provider Surgery | DX: E66.01 Morbid (severe) obesity due to excess calories (principal); K80.20 Calculus of gallbladder without cholecystitis without obstruction; R74.8 Abnormal levels of other serum enzymes; E11.9 Type 2 diabetes mellitus without complications | CPT/HCPCS: 99212 ==

== ENCOUNTER 2022-02-21 12:41 | Emergency (ER) | payer OTHER, SELFPAY ==
[2022-02-21 13:06] VITALS: BP 127/86; PULSE 77; RESP 20; TEMP 36.2; O2SAT 97; BMI 44.6
[2022-02-21 13:31] LABS: COVID-19 Test Negative (Negative); IDNOW Serial# 55D5AD1C
[2022-02-21 13:33] LABS: Influenza A Negative (Negative); Influenza B2 Negative (Negative)
--- NOTE | 2022-02-21 15:15 | ED.URI ---
HPI - URI/Sore Throat General Chief Complaint: Upper Respiratory Symptoms Stated Complaint: flu symptons body aches cough Time Seen by Provider: 02/21/22 15:15 Source: patient Mode of arrival: ambulatory Limitations: no limitations History of Present Illness HPI Narrative: Patient not been vaccinated against COVID been sick for last 1.5 weeks with nasal congestion sore throat body aches tiredness patient tested herself at home which were negative for COVID is still feeling worse with body aches cough especially for last 4 days other family member positive with COVID at home Related Data Home Medications Medication Instructions Recorded Confirmed alclometasone 0.05 % topical cream 1 appl topical BID 02/04/22 02/14/22 ibuprofen 800 mg tablet 800 mg PO Q8H PRN 02/04/22 02/14/22 Previous Rx's Medication Instructions Recorded nicotine 21 mg/24 hr daily 1 patch transdermal DAILY 28 days 01/27/22 transdermal patch (Nicoderm CQ) #28 ea Allergies Allergy/AdvReac Type Severity Reaction Status Date / Time Nickel Allergy Unknown hives Uncoded 02/14/22 08:44 Review of Systems Review of Systems: Yes all other systems are reviewed and are negative PMFSH Past Medical History Medical History Anxiety Carpal tunnel syndrome, bilateral Cervical cancer screening Depression Hidradenitis suppurativa Lupus Morbid obesity Substance abuse Surgical History H/O tubal ligation Hx of section Family History Family History Mother Diabetes Hypertension Substance use disorder Mental health disorder Social History Social History Housing: Apartment Alcohol intake: current Alcohol intake frequency: holidays/special occasions only Patient Tobacco Use Status: Current everyday Tobacco user Tobacco use type: Cigar Cigarettes Per Day: 5 e-Cigarette/Vaping Use: Never Used Advance Directives: No Advance Directives Information Provided: No Current occupational status: employed Current occupation: [employer] Current occupational exposures/hazards: No Gender identity: Female Cognitive needs: No Hearing needs: No Vision needs: No Physical Exam Vital Signs: Vital Signs: Last Vital Signs Temp 97.2 F 07/22/22 13:06 Pulse 77 02/21/22 13:06 Resp 20 02/21/22 13:06 BP 127/86 02/21/22 13:06 Pulse Ox 97 02/21/22 13:06 O2 Del Method 02/21/22 13:06 BMI result Body Mass Index 44.6 Appearance: Alert. Oriented X3. No acute distress. ENT: Pharynx normal. Oral Mucosa moist tympanic membrane intact Neck: Normal inspection. Neck supple. CVS: Normal heart rate and rhythm. Pulses normal. Respiratory: No respiratory distress. Equal air entry bilateral, no wheezing/rales/rhonchi Skin: Skin warm and dry. Normal skin color. Normal skin turgor. Extremities: No lower extremity edema. Abdomen: Soft nontender Neuro: Oriented X 3. MDM - URI/Sore Throat Lab Data Attestation: I reviewed the patient's lab results. Labs: Lab Results 02/21/22 02/21/22 02/21/22 Range/Units 13:10 13:10 15:18 COVID-19 (LAKESHIA) Negative (Negative) COVID-19 Clin Com See Note Influenza Type A (KATHARINE) Negative (Negative) Influenza Type A (PCR) NEGATIVE (Negative) Influenza Type B (KATHARINE) Negative (Negative) Influenza Type B (PCR) NEGATIVE (Negative) Influenza A & B Note See Note RSV RNA Qual (PCR) POSITIVE A (Negative) SARS-CoV-2 RNA (RT-PCR) NEGATIVE (Negative) Discharge Plan Discharge Clinical Impression: Close exposure to COVID-19 virus Patient Disposition: Home, Self-Care Instructions: COVID-19 (Coronavirus Disease 2019) (ED) Additional Instructions: Although your test for COVID is negative you have close contact with COVID patient Social distancing as advised Tylenol/Motrin for fever or body aches Prescriptions: No Action nicotine [Nicoderm CQ] 21 mg/24 hr patch 24 hour 1 patch transdermal DAILY 28 Days Qty: 28 0RF Rx Instructions: take patch off before bed, everynight ibuprofen 800 mg tablet 800 mg PO Q8H PRN alclometasone 0.05 % cream 1 appl topical BID Interventions: ED Discharge Assessment Last Done: 02/21/22 16:03 Discharge Date/Time: 02/21/22 16:05
[2022-02-21 16:07] LABS: Influenza A PCR NEGATIVE (Negative); Influenza B PCR NEGATIVE (Negative); Resp Syncy Virus RNA Qual PCR POSITIVE (Negative); SARS COV2 PCR INHOUSE NEGATIVE (Negative)
== END 2022-02-21 16:05 | disposition home or self-care (01) ==
PROVIDERS: Emergency Provider Internal Medicine; PCP Nurse Practitioner Family
DX: J02.9 Acute pharyngitis, unspecified (principal); M79.10 Myalgia, unspecified site; Z20.822 Contact with and (suspected) exposure to COVID-19; M32.9 Systemic lupus erythematosus, unspecified; E66.01 Morbid (severe) obesity due to excess calories; Z68.42 Body mass index [BMI] 45.0-49.9, adult; F17.200 Nicotine dependence, unspecified, uncomplicated
CPT/HCPCS: 0241U; 87502; 87635; 99283

== ENCOUNTER 2022-02-26 20:59 | Emergency (ER) | payer OTHER, SELFPAY ==
[2022-02-26 21:54] VITALS: BP 133/82; TEMP 36.6; BMI 44.6
--- NOTE | 2022-02-26 23:20 | ED.EAR ---
HPI - Ear Problem General Chief complaint: Ear Problems Stated complaint: Earache Time Seen by Provider: 02/26/22 23:20 Source: patient Mode of arrival: ambulatory Limitations: no limitations History of Present Illness HPI Narrative: 36-year-old female presents to the ER for evaluation of bilateral ear pain, right greater than left. She was seen here last week for upper respiratory symptoms, tested negative for COVID at that time. He reports feeling unwell with cold symptoms for the last 2 weeks. She has not had a fever in 2 weeks but remains with nasal congestion and pressure in her right side of her face and right ear. She reports a muffled sound in her right ear and significant right ear pain. She was having difficulty sleeping last night due to the pain. She denies any ear discharge. She has not been swimming recently. She reports she has ongoing nasal congestion and white nasal discharge. She attended by gym peroxide in her ear, and it made her pain worse. MD Complaint: ear pain Location: bilateral Duration: constant Severity: moderate Relieving factors: nothing Exacerbating factors: chewing, position of head and palpation Context: recent illness Discharge from ear: no Associated symptoms ear: decreased hearing and headache Treatment prior to arrival: none Related Data Home Medications Medication Instructions Recorded Confirmed alclometasone 0.05 % topical cream 1 appl topical BID 02/04/22 02/14/22 ibuprofen 800 mg tablet 800 mg PO Q8H PRN 02/04/22 02/14/22 Previous Rx's Medication Instructions Recorded nicotine 21 mg/24 hr daily 1 patch transdermal DAILY 28 days 01/27/22 transdermal patch (Nicoderm CQ) #28 ea amoxicillin 875 mg-potassium 1 tab PO BID #20 tabs 02/26/22 clavulanate 125 mg tablet fluticasone propionate 50 1 spray intranasal DAILY #16 grams 02/26/22 mcg/actuation nasal spray,suspension (Aller-Ryan) Allergies Allergy/AdvReac Type Severity Reaction Status Date / Time Nickel Allergy Unknown hives Uncoded 02/14/22 08:44 Review of Systems Review of Systems: Constitutional: No Fever, No Chills ENT/Mouth: No sore throat, No Rhinorrhea, No Swallowing Difficulty, +Otalgia, +Nasal congestion, +decreased hearing Eyes: No Eye Pain, No Swelling, No Redness Cardiovascular: No Chest Pain, No SOB Respiratory: No Cough, No Sputum, No Wheezing, No dyspnea Gastrointestinal: No Nausea, No Vomiting, No abdominal Pain Musculoskeletal: No joint pain, No Myalgias Skin: No Skin Lesions, No rash Neuro: No Weakness, No Dizziness, + Headache Heme/Lymph: No Bruising, + Lymphadenopathy PMFSH Past Medical History Medical History Anxiety Carpal tunnel syndrome, bilateral Cervical cancer screening Depression Hidradenitis suppurativa Lupus Morbid obesity Substance abuse Surgical History H/O tubal ligation Hx of section Family History Family History Mother Diabetes Hypertension Substance use disorder Mental health disorder Social History Social History Housing: Apartment Alcohol intake: current Alcohol intake frequency: holidays/special occasions only Patient Tobacco Use Status: Current everyday Tobacco user Tobacco use type: Cigar Cigarettes Per Day: 5 e-Cigarette/Vaping Use: Never Used Advance Directives: No Advance Directives Information Provided: No Current occupational status: employed Current occupation: [employer] Current occupational exposures/hazards: No Gender identity: Female Cognitive needs: No Hearing needs: No Vision needs: No Physical Exam Vital Signs: Vital Signs: Last Vital Signs Temp 97.8 F 02/26/22 21:54 BP 133/82 02/26/22 21:54 BMI result Body Mass Index 44.6 Appearance: Alert. Oriented X3. No acute distress. Eyes: Pupils equal, round and reactive to light. ENT: Pharynx normal. Moist mucus membranes. No tonsillar erythema or exudate. Normal inspection of the left EAC and TM. Right EAC is normal, right TM is erythematous, bulging, effusion present behind the TM. Hearing grossly normal Neck: Normal inspection. Neck supple. Mild right submadibular LAD. CVS: Normal heart rate and rhythm. Pulses normal. Respiratory: No respiratory distress. Breath sounds normal. Skin: Skin warm and dry. Normal skin color. Normal skin turgor. No rashes. Extremities: Normal inspection x4. Neuro: Oriented X 3. Grossly normal, nonfocal Course Course Course Narrative: 36-year-old female presents to the ER with bilateral ear pain, right greater than left ongoing for the last 2 weeks. She also has right-sided facial pressure and nasal congestion. Exam is consistent with acute otitis media on the right side. She also may have some sinusitis as well. Will treat with Augmentin for a 10 day course and prescribed anti-inflammatory medications for pain. Will prescribe Flonase intranasally as well. She is stable for discharge home with supportive care and outpatient follow-up as needed. Patient agrees with plan Critical Care Time Critical Care Time Critical Care Time: No Discharge Plan Discharge Clinical Impression: Otitis media Patient Disposition: Home, Self-Care Instructions: Ear Infection (ED) Additional Instructions: Take the prescribed antibiotic as directed, complete the entire course. If you develop new or worsening symptoms call 911 or come back to the ER for further evaluation. Prescriptions: New amoxicillin-pot clavulanate 875-125 mg tablet 1 tab PO BID Qty: 20 0RF fluticasone propionate [Aller-Ryan] 50 mcg/actuation spray,suspension 1 spray intranasal DAILY Qty: 16 0RF Rx Instructions: administer into each nostril No Action nicotine [Nicoderm CQ] 21 mg/24 hr patch 24 hour 1 patch transdermal DAILY 28 Days Qty: 28 0RF Rx Instructions: take patch off before bed, everynight ibuprofen 800 mg tablet 800 mg PO Q8H PRN alclometasone 0.05 % cream 1 appl topical BID
[2022-02-27] MEDS: Amoxicillin/Potassium Clav 875 MG TABLET PO (00:14)
[2022-02-27] MEDS: Ibuprofen 600 MG TABLET PO (00:14)
== END 2022-02-27 00:19 | disposition home or self-care (01) ==
PROVIDERS: Emergency Provider Internal Medicine; PCP Nurse Practitioner Family
DX: H66.91 Otitis media, unspecified, right ear (principal); H92.03 Otalgia, bilateral; E11.9 Type 2 diabetes mellitus without complications; M32.9 Systemic lupus erythematosus, unspecified; E66.01 Morbid (severe) obesity due to excess calories; Z68.41 Body mass index [BMI] 40.0-44.9, adult; F17.200 Nicotine dependence, unspecified, uncomplicated
CPT/HCPCS: 99283

== ENCOUNTER → 2022-02-28 09:22 | Outpatient (BNVA) | payer OTHER, SELFPAY | PROVIDERS: PCP Nurse Practitioner Family; Visit Provider Surgery | DX: K80.10 Calculus of gallbladder with chronic cholecystitis without obstruction (principal); L93.1 Subacute cutaneous lupus erythematosus; R76.8 Other specified abnormal immunological findings in serum; R74.8 Abnormal levels of other serum enzymes; E11.9 Type 2 diabetes mellitus without complications; E66.01 Morbid (severe) obesity due to excess calories; Z68.42 Body mass index [BMI] 45.0-49.9, adult | CPT/HCPCS: 99212 ==

== ENCOUNTER → 2022-03-11 07:56 | Outpatient (BNVA) | payer OTHER, SELFPAY | PROVIDERS: PCP Nurse Practitioner Family; Visit Provider Internal Medicine Rheumatology | DX: L93.1 Subacute cutaneous lupus erythematosus (principal) | CPT/HCPCS: 99212 ==

== ENCOUNTER 2022-03-20 07:02 | Day surgery (SDC) | payer OTHER, SELFPAY ==
[2022-03-14 14:21] VITALS: BMI 43.9
--- NOTE | 2022-03-19 10:12 | HO.ANESPROP2 ---
Documented by User: Sarah Srinivasan NP 03/19/22 10:14 HPI - Anesthesia Eval Consult details Narrative: 36yo F for Cholecystectomy Laparoscopic, possible open PMFSH Active Problems Active Problems: All Active Problems (Updated 03/11/22 @ 07:07 by Chacorta Quintnaa MD) Chronic calculous cholecystitis (Acute) Liver hemangioma (Acute) Close exposure to COVID-19 virus (Acute) DMII (diabetes mellitus, type 2) (Acute) Substance abuse (Acute) Cervical cancer screening (Acute) BEE positive (Acute) Acute cutaneous lupus erythematosus (Acute) Cholecystolithiasis (Acute) Obesity, morbid, BMI 50 or higher (Acute) Liver lesion (Acute) Elevated fasting blood sugar (Acute) Elevated liver enzymes (Acute) Systolic murmur (Acute) Low back pain (Acute) Past Medical History Medical History (Updated 03/20/22 @ 07:47 by Jennifer Medina RN) Anxiety Carpal tunnel syndrome, bilateral Cervical cancer screening Depression Hidradenitis suppurativa Lupus Morbid obesity Substance abuse Systolic murmur Family History Family History Mother Diabetes Hypertension Substance use disorder Mental health disorder Surgical History Surgical History H/O tubal ligation Hx of section Social History Social History Housing: Apartment Alcohol intake: current Alcohol intake frequency: holidays/special occasions only Patient Tobacco Use Status: Former Tobacco user Tobacco use type: Cigarette Cigarettes Per Day: 5 e-Cigarette/Vaping Use: Never Used Use of substances other than those prescribed or required for medical reasons: Yes Are you DNR?: No Advance Directives: No Advance Directives Information Provided: Yes Recently lost weight without trying: Yes How much weight loss: 24-33 pounds Nutrition Risks: No Nutritional Risk Current occupational status: employed Current occupation: [employer] Current occupational exposures/hazards: No Gender identity: Female Cognitive needs: No Hearing needs: No Vision needs: No Meds Allergies Allergy/AdvReac Type Severity Reaction Status Date / Time Nickel Allergy Unknown hives Uncoded 03/11/22 08:03 Home Medications Medication Instructions Recorded Confirmed Last Taken Type alclometasone 0.05 % topical cream 1 appl topical BID 02/04/22 03/11/22 Unknown History ibuprofen 800 mg tablet 800 mg PO Q8H PRN 02/04/22 03/11/22 Unknown History Exam Exam Date and Time: March 19, 2022 1012 Height,Weight and Vital Signs: Height 5 ft 4 in Weight 116.12 kg Pertinent Lab Results Pertinent Lab Results: Laboratory Tests 01/16/22 01/16/22 06:38 06:38 WBC 6.2 Hgb 14.9 Hct 48.1 H Plt Count 282 Sodium 138 Potassium 4.7 Chloride 106 Carbon Dioxide 26 BUN 12 Creatinine 0.71 Documented by User: Blaine Chan MD 03/20/22 09:21 PMF Past Medical History Medical History (Updated 03/20/22 @ 07:47 by Jennifer Medina RN) Anxiety Carpal tunnel syndrome, bilateral Cervical cancer screening Depression Hidradenitis suppurativa Lupus Morbid obesity Substance abuse Systolic murmur Patient : No Family History Family History Mother Diabetes Hypertension Substance use disorder Mental health disorder Family history of problems with anesthesia: No Surgical History Surgical History H/O tubal ligation Hx of section History of Problems with Anesthesia: No Social History Social History Housing: Apartment Alcohol intake: current Alcohol intake frequency: holidays/special occasions only Patient Tobacco Use Status: Former Tobacco user Tobacco use type: Cigarette Cigarettes Per Day: 5 e-Cigarette/Vaping Use: Never Used Use of substances other than those prescribed or required for medical reasons: Yes Are you DNR?: No Advance Directives: No Advance Directives Information Provided: Yes Recently lost weight without trying: Yes How much weight loss: 24-33 pounds Nutrition Risks: No Nutritional Risk Current occupational status: employed Current occupation: [employer] Current occupational exposures/hazards: No Gender identity: Female Cognitive needs: No Hearing needs: No Vision needs: No Meds Allergies Allergy/AdvReac Type Severity Reaction Status Date / Time Nickel Allergy Unknown hives Uncoded 03/11/22 08:03 Home Medications Medication Instructions Recorded Confirmed Last Taken Type alclometasone 0.05 % topical cream 1 appl topical BID 02/04/22 03/11/22 Unknown History ibuprofen 800 mg tablet 800 mg PO Q8H PRN 02/04/22 03/11/22 Unknown History Exam Airway Mallampati Class: II TM Dist: >3cm Neck ROM: Full Loose/Missing/Broken Teeth: No Heart: ok Lungs: ok Other: RA SpO2 97%. Assessment and Plan Assessment Anesthesia Assessment: Anesthesia Plan Discussed and Chart Reviewed Final Anesthetic Review Family History of Problems with Anesthesia: No History of Problems with Anesthesia: No NPO: Yes ASA Class: III Final Preanesthetic Review: No Changes in Pt Med Stat, Meds/Allgs Chart Reviewed, Consent Obtained/Reviewed, Anes Risks/Benef Reviewed and DNR Form (If Appl.) Patient Risk: Intermediate Procedure Risk: Intermediate Anesthetic Plan Anesthetic Plan: GA and Agree w/ Assess. and Plan Disposition: Standard PACU
[2022-03-20] VITALS (10 sets, daily range): BP systolic 127–146; BP diastolic 75–89; PULSE 67–87; RESP 12–20; TEMP 36.3–36.9; O2SAT 93–99; BMI 43.7
--- NOTE | 2022-03-20 | ECG_ITS ---
Test Reason : dm, obesity, smoker Blood Pressure : / mmHG Vent. Rate : 065 BPM Atrial Rate : 065 BPM P-R Int : 166 ms QRS Dur : 078 ms QT Int : 414 ms P-R-T Axes : 003 031 026 degrees QTc Int : 430 ms Normal sinus rhythm Normal ECG When compared with ECG of 27-MAY-2017 08:55, No significant change was found Referred By: Sarah Srinivasan Electronically Signed By:MELY FLOYD
--- NOTE | 2022-03-20 07:19 | P.OP_ITS ---
Operative Note Operative Note Date of Service: 03/20/22 Narrative: Preop diagnosis: [Biliary colic, hepatomegaly, fatty liver disease] Postop diagnosis: [Same] Procedure: [Laparoscopic cholecystectomy] Surgeon: Bishop Curtis MD Assist: [Comfort Carroll PA-C] Anesthesia: [GET, 0.5% Ropivicaine] Estimated blood loss: [3cc] Specimen: [Gallbladder with contents] Intraoperative findings: [Fatty liver, hepatomegaly, cystic duct 5-6 mm; cystic artery 3-4 mm. Critical view of safety demonstrated] Indications: [The patient is a 36-year-old woman with a history of binge drinking disorder, nicotine use and biliary colic. We discussed laparoscopic cholecystectomy secondary to her symptomatic biliary colic. I also reviewed the inherent risks to surgery which include, but are not limited to: Bleeding that could require another operation or blood transfusion, the need for open surgery, the unlikely but possible issue of bile leak that could require an ERCP, the risk of retained common duct stones that could require an ERCP, the risk of common bile duct injury which would require transfer to a larger institution for another operation. Patient seemed to understand her options, declined a compliance and control analyst or 2nd opinion and wants to proceed.] Procedure: [The patient was identified in preoperative holding and again in the operating room and placed supine on the table. The patient voided bladder monitoring engineer, sequential compression stockings were in place, subcu heparin had been administered and antibiotics per protocol were given. The patient was induced in general endotracheal anesthesia administered with excellent effect. An appropriate time-out was performed. A footboard was utilized. The patient's abdomen was widely prepped and draped in the usual manner for surgery using chlorhexidine. Preemptive local was used at all trocar insertion sites. Again at the batista praumbilical location and after infiltrating local, made a stab incision and placed a Veress needle with difficulty and it would not traverse the fascia. Given this, I elected to perform a stab incision in the left upper quadrant/subcostal area and attempted to place the Veress needle. An appropriate drop test could not be performed, sewed dissection was returned to the supraumbilical location and in holding the anterior retraction on the abdomen wall, the Veress needle was again placed with an appropriate drop test and opening pressures were 6-7 mmHg. A pneumoperitoneum of 15 mmHg was obtained using carbon dioxide. Next, the needle was withdrawn and a 5 mm/30 degree laparoscoped over Optiview trocar was used to access the abdomen without incident. Upon examining the abdomen, there was no evidence of injury from the Veress needle or trocar. Next, 5 mm trocars were placed in the epigastric, subcostal and right anterior axillary line just above the line of the umbilicus. Under direct laparoscopic vision, the 5 mm umbilical port was upsized to a 10 mm. The patient was then positioned in reverse Trendelenburg position and banked left. I examined the left upper quadrant and found that the Veress needle did not traverse the patient's peritoneum which was surprisingly elastic. The Veress needle was tenting the peritoneum approximately 2cm without penetration. I also examined the supraumbilical area and could not appreciate any injury from either the Veress needle or the trocar. The gallbladder was clearly identified and grasped by its fundus. It was retracted cranially and anteriorly and dissection began in the cystic triangle. The cystic duct was identified at its junction on the gallbladder and dissection began laterally, then circumferentially dissected using the [place] dissector and hook. The cystic artery was then carefully identified and circumferentially dissected. Once dissection of both structures was complete and the critical view of safety demonstrated, the duct and artery were double clipped proximally and once distally and sharply divided. Electrocautery was used to remove the gallbladder from its fossa on the liver. Liver bed was inspe cted for hemostasis and the clips were noted to be on the respective structures. The gallbladder was placed in an Endo-Catch bag and delivered through the umbilicus under direct laparoscopic vision. The abdomen was again inspected with the laparoscoped and a abdomen deflated to assess for hemostasis. The patient was returned to neutral position, the abdomen deflated and the fascia of the supraumbilical incision closed with interrupted Vicryl sutures. Skin was closed with 4-0 Monocryl subcuticular sutures. Mastisol and Steri-Strips were applied followed by Band-Aids. The patient tolerated the procedure well and was extubated recovered in stable condition. All sponge instrument counts were correct. At the patient's request I spoke to her boyfriend in the waiting area and apprise them of the operation and plan. His questions seemed to be satisfactorily answered.]
[2022-03-20] MEDS: Acetaminophen 325 MG TABLET 650 MG PO (07:58)
[2022-03-20] MEDS: Heparin Sodium,Porcine 5,000 UNIT/ML VIAL 5000 UNIT SUBCUT (07:59)
[2022-03-20] MEDS: Lactated Ringers 1,000 ML 100 ML IVCONT (08:25)
--- NOTE | 2022-03-20 09:05 | MHC.SHP ---
Pre-Procedural Eval Section A Date of Service: 03/20/22 The patient is an INPATIENT: No The History & Physical has been completed within 30 days and I have reviewed it.: Yes Section B Chief Complaint: gallstones Allergies: Allergies Allergy/AdvReac Type Severity Reaction Status Date / Time Nickel Allergy Unknown hives Uncoded 03/11/22 08:03 Plan I have reviewed the history and physical and performed a pertinent physical examination on my patient. No changes have occurred unless specified.
[2022-03-20] MEDS: oxyCODONE HCl Immed Release 5 MG TABLET 10 MG PO (11:39)
[2022-03-20] MEDS: HYDROmorphone HCl 0.5 MG/0.5 ML SYRINGE IVPUSH ×2 (11:54→11:59)
== END 2022-03-20 12:53 | disposition home or self-care (01) ==
LOC: HO.SSS 07:02
PROVIDERS: PCP Nurse Practitioner Family; Visit Provider Surgery
PROC: 0FT44ZZ Resection of Gallbladder, Percutaneous Endoscopic Approach (ICD-10-PCS; CPT 47562; principal; 2022-03-20 09:10)
DX: K80.10 Calculus of gallbladder with chronic cholecystitis without obstruction (principal); K76.0 Fatty (change of) liver, not elsewhere classified; L93.1 Subacute cutaneous lupus erythematosus; L73.2 Hidradenitis suppurativa; R74.01 Elevation of levels of liver transaminase levels; F10.11 Alcohol abuse, in remission; F41.1 Generalized anxiety disorder; F32.A Depression, unspecified; E66.01 Morbid (severe) obesity due to excess calories; R01.1 Cardiac murmur, unspecified; E11.9 Type 2 diabetes mellitus without complications; Z68.42 Body mass index [BMI] 45.0-49.9, adult; Z79.51 Long term (current) use of inhaled steroids; Z79.899 Other long term (current) drug therapy; Z87.891 Personal history of nicotine dependence
CPT/HCPCS: 47562; 88304; 93005; J0690; J1100; J1170; J1885; J2250; J2405; J2795; J3010

== ENCOUNTER 2022-05-20 06:48 | Emergency (ER) | payer OTHER, SELFPAY ==
--- NOTE | ~2022-05-20 | XR_ITS ---
EXAMINATION: XR HAND, RIGHT CLINICAL INFORMATION: Right hand pain. COMPARISON: Radiographs of the right hand done on 08/10/2018. TECHNIQUE: PA, lateral, and oblique views of the right hand. FINDINGS: Mild osteoarthrosis is noted at the Triscaphe joint joint. The bony alignments are intact. The cortices are intact. The soft tissues are unremarkable. The joint spaces are unremarkable except for the mild osteoarthrosis seen at the Triscaphe joint joint. XR/XR hand RT min 3V IMPRESSION: No radiographic evidence of any acute displaced fracture, subluxation or dislocation, unchanged since 08/10/2018. Incidental note is made of mild osteoarthrosis at the Triscaphe joint.
[2022-05-20 07:12] VITALS: BP 143/90; PULSE 94; RESP 16; TEMP 36.4; O2SAT 99; BMI 45.4
--- NOTE | 2022-05-20 08:16 | ED_ITS ---
HPI - General Adult General Chief complaint: Extremity Problem Stated complaint: pain in right hand, Time Seen by Provider: 05/20/22 08:15 Source: patient Mode of arrival: ambulatory Limitations: no limitations History of Present Illness HPI narrative: Patient is a 36 year old assigned female at with a history of carpal tunnel and lupus presenting to the emergency department today with right wrist pain. Patient states that 7 years ago she had carpal tunnel surgery but she still has intermittent wrist pain. 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 Patient states that she has an appointment with the orthopedist next month. Patient denies any dizziness, lightheadedness, abdominal pain, nausea, vomiting, fever, chills, blurry vision, double vision, loss of vision, chest pain, difficulty breathing, shortness of breath, back pain, night sweats, pain with urination, increased urinary frequency, increased urinary urgency, blood in her urine or stool, syncope or a near syncopal episode, recent trauma or falls, bowel incontinence, bladder incontinence, bowel retention, bladder retention, or any other complaints at this time. Onset (ago): week(s) (2) Location: right and upper extremity Radiation: non-radiation Severity: mild Severity scale (1-10): 3 Quality: dull Pain Consistency: constant Relieving factors: none Exacerbating factors: none Associated symptoms: denies other symptoms Treatments prior to arrival: none Related Data Home Medications Medication Instructions Recorded Confirmed alclometasone 0.05 % topical cream 1 appl topical BID 02/04/22 03/28/22 ibuprofen 800 mg tablet 800 mg PO Q8H PRN 02/04/22 03/28/22 Previous Rx's Medication Instructions Recorded nicotine 21 mg/24 hr daily 1 patch transdermal DAILY 28 days 04/20/22 transdermal patch (Nicoderm CQ) #28 ea prednisone 20 mg tablet 40 mg PO DAILY 5 days #10 tabs 04/22/22 Allergies Allergy/AdvReac Type Severity Reaction Status Date / Time Nickel Allergy Unknown hives Uncoded 03/28/22 09:55 Review of Systems Constitutional: Constitutional: Reports no additional constitutional complaints, Denies chills, Denies fever(s) and Denies night sweats Eyes: Eyes: Reports no additional eye complaints, Denies blurry vision, Denies change in vision, Denies diplopia, Denies eye discharge, Denies loss of vision and Denies eye pain ENT: Denies dizziness Cardiovascular: Cardiovascular: Reports no additional cardiovascular complaints, Denies chest pain, Denies lightheadedness, Denies Loss of Consciousness and Denies dyspnea Respiratory: Respiratory: Reports no additional respiratory complaints and Denies dyspnea Gastrointestinal: Gastrointestinal: Reports no additional gastrointestinal complaints, Denies abdominal pain, Denies melena, Denies hematochezia, Denies change in bowel habits and Denies change in stool character Genitourinary: Genitourinary: Denies hematuria, Denies urinary frequency, Denies dysuria, Denies urinary incontinence, Denies urinary hesitancy and Denies urinary urgency Musculoskeletal: Musculoskeletal: Reports no additional musculoskeletal complaints, Denies numbness and Denies tingling Comments: right wrist pain Neurologic: Denies dizziness, Denies loss of vision, Denies numbness and Den ies tingling Psychiatric: Psychiatric: Reports no additional psychiatric complaints Endocrine: Endocrine: Reports no additional endocrine complaints Hematologic/Lymphatic: Hematologic/Lymphatic: Reports no additional hematologic/lymphatic complaints Allergic/Immunologic: Allergic/Immunologic: Reports no additional allergic/immunologic complaints [facility] Past Medical History Attestation statement: The following information was validated with the patient. Source: old records reviewed Medical History Anxiety Carpal tunnel syndrome, bilateral Cervical cancer screening Depression Hidradenitis suppurativa Lupus Morbid obesity Substance abuse Systolic murmur Surgical History H/O tubal ligation History of laparoscopic cholecystectomy Hx of section Family History Family History Mother Diabetes Hypertension Substance use disorder Mental health disorder Social History Social History Housing: Apartment Alcohol intake: current Alcohol intake frequency: holidays/special occasions only Patient Tobacco Use Status: Former Tobacco user Tobacco use type: Cigarette Cigarettes Per Day: 5 e-Cigarette/Vaping Use: Never Used Advance Directives: No Advance Directives Information Provided: No Current occupational status: employed Current occupation: [employer] Current occupational exposures/hazards: No Gender identity: Female Cognitive needs: No Hearing needs: No Vision needs: No Physical Exam ED Vital Signs: Vital Signs - 24 hr 05/20/22 07:12 Temperature 97.6 F Pulse Rate 94 Respiratory Rate 16 Blood Pressure 143/90 H Pulse Oximetry 99 Oxygen Delivery Method Room Air BMI result Body Mass Index 45.4 Const General: cooperative, no acute distress, alert and awake Nutritional Appearance: well nourished Orientation/consciousness: patient oriented x3 Limitations: no limitations HENMT Head: Yes normal to inspection and Yes atraumatic Ears: hearing grossly normal bilaterally and external ears normal General nose exam: Normal external nose present, no nasal discharge noted and no epistaxis Face and sinus: Yes normal facial exam, No abrasion and No laceration Mouth: Normal oral and palatal mucosa present, no drooling and no muffled voice Eyes General: appearance normal, both eyes and all related structures Periorbital: periorbital findings normal Eyelids: Yes eyelids normal Conjunctivae: conjunctivae normal Pupils: Equal, round and reactive pupils present EOM: EOMs intact bilaterally Neck Neck: Yes normal visual inspection, Yes full ROM and Yes no lymphadenopathy Chest Chest palpation & inspection: normal inspection of the chest Resp Effort & Inspection: normal respiratory effort and able to speak in complete sentences Auscultation: clear to auscultation bilaterally Cardio Rate: regular rate Rhythm: regular rhythm GI Inspection: Yes normal to inspection Neuro General: patient oriented x3 and moves all extremities Cranial nerves: Yes Equal, round and reactive pupils present Cognition (Neuro): normal cognition Motor exam (neuro): 5/5 motor strength present throughout Sensory Exam: Normal double simultaneous stimulation for sensation Coordination: [id number] test normal Extrem General: Yes normal to inspection, Yes full ROM and Yes capillary refill normal Psych Appearance: grossly normal Mental Status: mental status grossly normal Affect: normal affect Attitude: cooperative Thought process: Normal thought process present Thought content: Normal thought content present Insight: Good insight present (Psych) Medical Decision Making MDM Narrative Medical decision making narrative: Patient is a 36 year old assigned female at with a history of lupus and carpal tunnel presenting to the emergency department today with right wrist pain. Patient's physical exam was unremarkable. Patient's right wrist x-ray showed no acute process. I explained my physical exam findings as well as all test results to the patient. Patient's current clinical presentation is most consistent with acute on chronic wrist pain. I answered all questions asked by the patient. Patient received IM Toradol which she stated helped her pain significantly. I stressed the importance of the patient taking her medication as prescribed. I stressed the importance of the patient following up with her primary care provider and the orthopedic provider previously scheduled. I stressed the importance of the patient returning to the emergency department immediately if her symptoms were to worsen or if she were to develop any dizziness, shortness of breath, difficulty breathing, chest pain, blurry vision, loss of vision, nausea, vomiting, abdominal pain, fever, chills, back pain, or any other complaints. Patient verbalized agreement and understanding with this treatment plan and discharge. Medical Records Medical records reviewed: Yes I reviewed the patient's medical records. Imaging Data Right wrist x-ray: Attestation: I personally reviewed and interpreted this imaging study as follows: My impression: No acute process. Radiologist's impression: EXAMINATION: XR HAND, RIGHT CLINICAL INFORMATION: Right hand pain.? COMPARISON: Radiographs of the right hand done on 08/10/2018. TECHNIQUE: PA, lateral, and oblique views of the right hand. FINDINGS: Mild osteoarthrosis is noted at the Triscaphe joint joint. The bony alignments are intact. The cortices are intact. The soft tissues are unremarkable. The joint spaces are unremarkable except for the mild osteoarthrosis seen at the Triscaphe joint joint. XR/XR hand RT min 3V IMPRESSION: No radiographic evidence of any acute displaced fracture, subluxation or dislocation, unchanged since 08/10/2018. Incidental note is made of mild osteoarthrosis at the Triscaphe joint. Dictated By: Gifty Alicia MD Signed By: Electronically signed by Gifty Alicia MD 05/20/22 0742 Discharge Plan Discharge Clinical Impression: Chronic wrist pain Patient Disposition: Home, Self-Care Instructions: Wrist Injury (ED) Additional Instructions: Follow up with your primary care provider and an orthopedic provider. Return to the emergency department immediately if your symptoms worsen or if you develop any dizziness, shortness of breath, difficulty breathing, chest pain, blurry vision, loss of vision, nausea, vomiting, abdominal pain, fever, chills, back pain, or any other complaints. Prescriptions: No Action nicotine [Nicoderm CQ] 21 mg/24 hr patch 24 hour 1 patch transdermal DAILY 28 Days Qty: 28 0RF Rx Instructions: take patch off before bed, everynight prednisone 20 mg tablet 40 mg PO DAILY 5 Days Qty: 10 0RF ibuprofen 800 mg tablet 800 mg PO Q8H PRN alclometasone 0.05 % cream 1 appl topical BID Referrals: [facility] [Provider Group] (Follow up with your orthopedic provider as scheduled. ) Kojo Jones FNP-MIN [Primary Care Provider] - Stand Alone Forms: Work/School Release Interventions: ED Discharge Assessment Last Done: 05/20/22 08:39 Discharge Date/Time: 05/20/22 08:42 Print Language: Tajik
[2022-05-20] MEDS: Ketorolac Tromethamine 15 MG/ML VIAL IM (08:34)
== END 2022-05-20 08:42 | disposition home or self-care (01) ==
PROVIDERS: Emergency Provider Emergency Medicine Emergency Medical Services; PCP Nurse Practitioner Family
DX: M25.531 Pain in right wrist (principal); Z79.899 Other long term (current) drug therapy; Z87.891 Personal history of nicotine dependence
CPT/HCPCS: 73130; 96372; 99283; 99284; J1885

== ENCOUNTER 2022-06-30 11:09 | Outpatient (REF) | payer OTHER, SELFPAY ==
--- NOTE | ~2022-06-30 | XR_ITS ---
EXAMINATION: XR HAND, RIGHT CLINICAL INFORMATION: Right hand pain COMPARISON: 05/20/2022 TECHNIQUE: Four views of the right hand. FINDINGS: The bones and soft tissues are normal. No fracture. Alignment is anatomic. Joint spaces are maintained. No erosions or soft tissue calcifications. XR/XR hand RT min 3V IMPRESSION: Normal right hand.
== END 2022-06-30 11:10 | disposition home or self-care (01) ==
LOC: HO.HOSX 11:09
PROVIDERS: Visit Provider Orthopaedic Surgery
DX: Z13.89 Encounter for screening for other disorder (principal)

== ENCOUNTER → 2022-07-03 09:00 | Outpatient (BNVA) | payer OTHER, SELFPAY | PROVIDERS: PCP Nurse Practitioner Family; Visit Provider Orthopaedic Surgery | DX: M79.641 Pain in right hand (principal); M79.642 Pain in left hand | CPT/HCPCS: 73130; 99202 ==

== ENCOUNTER 2022-07-17 15:49 | Emergency (ER) | payer OTHER, SELFPAY ==
--- NOTE | ~2022-07-17 | CT_ITS ---
EXAMINATION: CT CERVICAL SPINE WITHOUT CONTRAST CLINICAL INFORMATION: Left-sided neck pain radiating to the left shoulder. COMPARISON: None TECHNIQUE: Axial images obtained through the cervical spine. Coronal and sagittal reformatted images are performed at CT scanner This CT examination was performed using dose optimization techniques as appropriate, variously including the following: *Automated exposure control *Adjustment of mA and/or kV according to patient size (this includes techniques or standardized protocols for targeted exams where dose is matched to indication/reason for exam; i.e. extremities or head) *Use of iterative reconstruction technique DLP: 735 mGy-cm FINDINGS: Cervical vertebrae have normal height and alignment. No fracture or subluxation. No prevertebral soft tissue swelling. There is mild cervical disc height narrowing C4-C5, C6-C7 and more significant disc height narrowing at C5-C6. There are small uncinate process spurs posteriorly at C5-C6 but no significant encroachment of the neural foramina which remain open bilaterally. No central canal stenosis. No focal disc protrusion. CT/CT cervical spine wo IV con IMPRESSION: 1. No acute abnormality. 2. Mild degenerative spondylosis of cervical spine. Fleischner guidelines were followed.
[2022-07-17 16:41] VITALS: BP 138/89; PULSE 105; RESP 20; TEMP 37; O2SAT 97; BMI 43.7
--- NOTE | 2022-07-17 16:42 | ED.NECK ---
HPI - Neck Pain/Injury General Chief Complaint: General Medical <FRANCHESCA Patel - Last Filed: 07/17/22 16:46> Stated Complaint: Neck/Shoulder pain <FRANCHESCA Patel - Last Filed: 07/17/22 16:46> Time Seen by Provider: 07/17/22 17:44 <FRANCHESCA Patel - Last Filed: 07/17/22 16:46> Source: patient <FRANCHESCA Lama Last Filed: 07/17/22 18:04> Mode of arrival: ambulatory <FRANCHESCA Lama - Last Filed: 07/17/22 18:04> Limitations: no limitations <FRANCHESCA Lama - Last Filed: 07/17/22 18:04> History of Present Illness HPI Narrative: 37 yo female presenting wtih left sided neck stiffness for the last 5 days. She states she woke up with the pain after sleeping funny. She states she has been trying multiple remedies to help with the pain without effect. She has tried massage done, ibuprofen, Flexeril, topical agents without relief. She states the pain is mostly on the left side and is worse with palpation and movement of the head. She denies any fever or chills. No headaches. She states the pain is making it difficult for her to sleep. <FARNCHESCA Lama - Last Filed: 07/17/22 18:04> MD complaint: neck pain <FRANCHESCA Lama - Last Filed: 07/17/22 18:04> Onset (ago): day(s) (5) <FRANCHESCA Lama - Last Filed: 07/17/22 18:04> Place: home <FRANCHESCA Lama Last Filed: 07/17/22 18:04> Radiation: left lateral <FRANCHESCA Lama Last Filed: 07/17/22 18:04> Severity: severe <FRANCHESCA Lama Last Filed: 07/17/22 18:04> Severity scale (1-10): 9 <FRANCHESCA Lama Last Filed: 07/17/22 18:04> Quality: aching and spasming <FRANCHESCA Lama Last Filed: 07/17/22 18:04> Duration: constant <FRANCHESCA Lama Last Filed: 07/17/22 18:04> Relieving factors: immobilization and remaining still <FRANCHESCA Lama Last Filed: 07/17/22 18:04> Exacerbating factors: movement of neck <FRANCHESCA Lama Last Filed: 07/17/22 18:04> Context: unknown <FRANCHESCA Lama Last Filed: 07/17/22 18:04> Treatments prior to arrival: none <FRANCHESCA Lama Last Filed: 07/17/22 18:04> Related Data Home Medications: Previous Rx's Medication Instructions Recorded nicotine 21 mg/24 hr daily 1 patch transdermal DAILY 28 days 06/10/22 transdermal patch (Nicoderm CQ) #28 ea diazepam 5 mg tablet (Valium) 5 mg PO BID PRN muscle spasm #6 07/17/22 tabs hydrocodone 5 mg-acetaminophen 325 1 tab PO Q8H PRN severe pain 07/17/22 mg tablet (scale score 7-10) #5 tabs lidocaine 5 % topical patch 1 patch topical DAILY #15 ea 07/17/22 naproxen 500 mg tablet 500 mg PO BID PRN pain #20 tabs 07/17/22 <FRANCHESCA Patel Last Filed: 07/17/22 16:46> Allergies/Adverse Reactions: Allergies Allergy/AdvReac Type Severity Reaction Status Date / Time Nickel Allergy Unknown hives Uncoded 07/03/22 09:17 <FRANCHESCA Patel Last Filed: 07/17/22 16:46> Review of Systems Review of Systems: Constitutional: No Fever, No Chills ENT/Mouth: No sore throat, No Rhinorrhea, No Swallowing Difficulty Eyes: No Eye Pain, No Swelling, No Redness Cardiovascular: No Chest Pain, No SOB, No Orthopnea, No Edema Respiratory: No Cough, No Sputum, No Wheezing, No dyspnea Gastrointestinal: No Nausea, No Vomiting Musculoskeletal: No joint pain, +Myalgias Skin: No Skin Lesions, No rash Neuro: No Weakness, No Numbness, No Dizziness, No Headache Psych: + Anxiety/Panic, No Depression Heme/Lymph: No Lymphadenopathy <FRANCHESCA Lama Last Filed: 07/17/22 18:04> [facility] Past Medical History Medical History: Medical History Anxiety Carpal tunnel syndrome, bilateral Cervical cancer screening Depression Hidradenitis suppurativa Lupus Morbid obesity Substance abuse Systolic murmur <FRANCHESCA Patel - Last Filed: 07/17/22 16:46> Surgical History: Surgical History H/O tubal ligation History of laparoscopic cholecystectomy Hx of section <FRANCHESCA Patel - Last Filed: 07/17/22 16:46> Family History Family History: Family History Mother Diabetes Hypertension Substance use disorder Mental health disorder <FRANCHESCA Patel - Last Filed: 07/17/22 16:46> Social History Social History: Social History (Updated 07/03/22 @ 09:18 by SELVIN Moreau) Housing: Apartment Alcohol intake: current Alcohol intake frequency: holidays/special occasions only Patient Tobacco Use Status: Former Tobacco user Tobacco use type: Cigarette Cigarettes Per Day: 5 e-Cigarette/Vaping Use: Never Used Advance Directives: No Advance Directives Information Provided: No Current occupational status: unemployed 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 Current occupational exposures/hazards: Yes Gender identity: Female Cognitive needs: No Hearing needs: No Vision needs: No <FRANCHESCA Patel - Last Filed: 07/17/22 16:46> Physical Exam Vital Signs: Vital Signs: Last Vital Signs Temp 98.6 F 07/17/22 16:41 Pulse 105 H 07/17/22 16:41 Resp 20 07/17/22 16:41 BP 138/89 07/17/22 16:41 Pulse Ox 97 07/17/22 16:41 O2 Del Method 07/17/22 16:41 BMI result Body Mass Index 43.7 <FRANCHESCA Patel - Last Filed: 07/17/22 16:46> Vital Signs: Last Vital Signs Temp 98.6 F 07/17/22 16:41 Pulse 105 H 07/17/22 16:41 Resp 20 07/17/22 16:41 BP 138/89 07/17/22 16:41 Pulse Ox 97 07/17/22 16:41 O2 Del Method 07/17/22 16:41 BMI result Body Mass Index 43.7 <FRANCHESCA Lama - Last Filed: 07/17/22 18:04> Appearance: Alert. Oriented X3. No acute distress. Eyes: Pupils equal, round and reactive to light. ENT: Pharynx normal. Normal TMs bilaterally. Neck: Normal inspection. Neck supple with soft tissue tenderness and spasm of the left lateral neck and upper trapezius, normal ROM but with discomfort w/ lateral movements. no nuchal rigidity. CVS: Normal heart rate and rhythm. Pulses normal. Respiratory: No respiratory distress. Breath sounds normal. Skin: Skin warm and dry. Normal skin color. Normal skin turgor. No rashes. Extremities: No lower extremity edema. Neuro: Oriented X 3. nonfocal <FRANCHESCA Lama Last Filed: 07/17/22 18:04> Course Course Course Narrative: HUANG-16:45PM - 37yoF presenting to the ED c c/o waking up on Thursday with Neck pain going into her left shoulder. Reports she has tried [id number] Motrin and Tylenol along with muscle relaxants and no symptomatic relief. Denies recent falls or injury. Plan: Will obtain a CT scan of cervical spine. Patient will be sent to Emergency minor care for further evaluation and treatment. <FRANCHESCA Patel - Last Filed: 07/17/22 16:46> Reevaluation(s) Reevaluation #1: CT scan is ?No acute abnormality. Mild degenerative spondylosis of cervical spine. Exam and clinical presentation are consistent with muscle strain and spasm. will change nsaid and muscle relaxer. advised to stop using the massage gun as this can be more harmful than helpful. stable for d/c home with pain control and outpatient follow up. <FRANCHESCA Lama Last Filed: 07/17/22 18:04> Critical Care Time Critical Care Time Critical Care Time: No <FRANCHESCA Lama Last Filed: 07/17/22 18:04> Discharge Plan Discharge Clinical Impression: Cervical muscle strain <FRANCHESCA Patel Last Filed: 07/17/22 16:46> Patient Disposition: Home, Self-Care <FRANCHESCA Patel Last Filed: 07/17/22 16:46> Instructions: Cervical Strain (ED) <FRANCHESCA Patel - Last Filed: 07/17/22 16:46> Additional Instructions: Your CT scan today did not show any acute abnormalities. Take the prescribed medications as directed. Use heating pad to the area several times per day. Use gentle massage, avoid the massage done. Gently stretch and work on range of motion of your head and neck. Follow-up with your doctor next week <FRANCHESCA Patel - Last Filed: 07/17/22 16:46> Prescriptions: New lidocaine 5 % adhesive patch,medicated 1 patch topical DAILY Qty: 15 0RF Rx Instructions: leave on most painful area for up to 12 hrs naproxen 500 mg tablet 500 mg PO BID PRN (Reason: pain) Qty: 20 0RF diazepam [Valium] 5 mg tablet 5 mg PO BID PRN (Reason: muscle spasm) Qty: 6 0RF hydrocodone-acetaminophen 5-325 mg tablet 1 tab PO Q8H PRN (Reason: severe pain (scale score 7-10)) Qty: 5 0RF Rx Instructions: Partial Fill upon patient request. No Action nicotine [Nicoderm CQ] 21 mg/24 hr patch 24 hour 1 patch transdermal DAILY 28 Days Qty: 28 0RF Rx Instructions: take patch off before bed, everynight <FRANCHESCA Patel Last Filed: 07/17/22 16:46>
== END 2022-07-17 18:09 | disposition home or self-care (01) ==
PROVIDERS: Emergency Provider Internal Medicine; PCP Nurse Practitioner Family
DX: M54.2 Cervicalgia (principal); Z87.891 Personal history of nicotine dependence
CPT/HCPCS: 72125; 99282; 99284

== ENCOUNTER 2022-07-23 08:02 | Outpatient (REF) | payer OTHER, SELFPAY ==
--- NOTE | ~2022-07-23 | XR_ITS ---
EXAMINATION: XR SHOULDER, LEFT CLINICAL INFORMATION: Left shoulder pain COMPARISON: None TECHNIQUE: AP external rotation, Grashey, scapular Y, and axillary views of the left shoulder. FINDINGS: The bones and soft tissues are normal. No fracture. Glenohumeral and acromioclavicular alignment is anatomic with normal joint space. No abnormal soft tissue calcifications. XR/XR shoulder LT min 2V IMPRESSION: Normal left shoulder.
== END 2022-07-23 08:03 | disposition home or self-care (01) ==
LOC: HO.XRAY 08:02
PROVIDERS: PCP Nurse Practitioner Family; Visit Provider Internal Medicine Rheumatology
DX: M75.82 Other shoulder lesions, left shoulder (principal); M79.641 Pain in right hand; M79.642 Pain in left hand; M18.0 Bilateral primary osteoarthritis of first carpometacarpal joints; L93.1 Subacute cutaneous lupus erythematosus
CPT/HCPCS: 73030; 99212

== ENCOUNTER → 2022-09-08 09:02 | Outpatient (BNVA) | payer OTHER, SELFPAY | PROVIDERS: PCP Nurse Practitioner Family; Visit Provider Internal Medicine Rheumatology | DX: L93.1 Subacute cutaneous lupus erythematosus (principal); M75.82 Other shoulder lesions, left shoulder; R20.0 Anesthesia of skin; R20.2 Paresthesia of skin; M47.812 Spondylosis without myelopathy or radiculopathy, cervical region | CPT/HCPCS: 99212 ==

== ENCOUNTER 2022-11-26 12:59 | Outpatient (REF) | payer OTHER, SELFPAY ==
--- NOTE | 2022-11-26 09:30 | EMG_ITS ---
Please see scanned EMG / Nerve Conduction Report. MTDD
== END 2022-11-26 13:00 | disposition home or self-care (01) ==
LOC: HO.NEURO 12:59
PROVIDERS: PCP Nurse Practitioner Family; Visit Provider Orthopaedic Surgery
DX: R20.2 Paresthesia of skin (principal); R20.0 Anesthesia of skin
CPT/HCPCS: 95885; 95910

== ENCOUNTER 2023-01-07 10:44 | Outpatient (REF) | payer OTHER, SELFPAY ==
[2023-01-07 11:54] LABS: MANUAL DIFF FLAG NO
[2023-01-07 12:54] LABS: Appearance Urine Clear; Color Urine Yellow; Glucose Urine UA Negative (Negative); Leukocyte Esterase Urine Negative (Negative); Nitrite Urine Negative (Negative); PH 5.5 (5.0-9.0); Specific Gravity - Urine 1.015 (1.005-1.025); UMIC TRIGGER UACC YES; Urine Blood Small (1+) (Negative); Urine Ketones Negative (Negative); Urine Protein Negative (Neg-Trace)
[2023-01-07 13:03] LABS: Bacteria Urine None Seen (None Seen); Hyaline Casts Urine 0-2 /LPF (0-2); Squamous Epithelial Cell Urine 0-2 /HPF (0-2); WBC Urine 0-5 /HPF (0-5)
[2023-01-07 13:29] LABS: Basophils Percent Auto 0.5 % (0-2); Eosinophils Absolute Auto 0.1 X10*3/uL (0.0-0.4); Eosinophils Percent Auto 0.8 % (0-4); Hematocrit 44.9 % (37.0-47.0); Hemoglobin 14.1 g/dl (12.0-16.0); Imm Gran Abs Auto 0.02 X10*3/uL (0.00-0.03); Imm Gran Pct Auto 0.3 % (0.0-0.4); Lymphocytes Absolute Auto 2.1 X10*3/uL (1.2-4.9); Lymphocytes Percent Auto 31.3 % (20-40); Mean Corpuscular HGB Conc 31.4 g/dl (31.0-35.0); Mean Corpuscular Hemoglobin 26.2 pg (27.0-33.0); Mean Corpuscular Volume 83.3 fL (80.0-98.0); Mean Platelet Volume 9.8 fL (9.4-12.3); Monocytes Absolute Auto 0.3 X10*3/uL (0.1-1.2); Monocytes Percent Auto 5.2 % (2-11); Neutrophils Absolute Auto 4.1 x10*3/uL (2.0-8.3); Neutrophils Percent Auto 61.9 % (45-73); Platelet Count 325 X10*3/uL (160-400); Red Blood Count 5.39 X10*6/uL (4.20-5.50); Red Cell Distribution Width 13.4 % (11.0-16.0); White Blood Count 6.6 X10*3/uL (4.8-10.8)
[2023-01-07 14:04] LABS: Creatinine Urine 93.14 mg/dL; Total Protein Urine Random < 7 mg/dL (<12)
[2023-01-07 14:17] LABS: TSH reflex Free T4 0.67 uIU/mL (0.32-4.0)
[2023-01-07 14:22] LABS: Erythrocyte Sedimentation Rate 12 MM/HR (0-20)
[2023-01-08 11:53] LABS: Complement C3 174 mg/dL (83-193)
[2023-01-09 04:33] LABS: Rubella IgG Antibody 8.59 Index; Varicella IgG Antibody >4000.00 index
[2023-01-09 08:02] LABS: HBS Num1 266.78 mIU/mL (0-7.99); HBc Num1 0.06 S/CO (0.00-0.79); HBsAGNum1 0.31 S/CO (0.00-0.99); Hepatitis A Antibody IgM 0.16 Index (0-0.79); Hepatitis B Core Antibody Nonreactive (Nonreactive); Hepatitis B Surface Antigen Negative (Negative); ~HepC Num1 0.09 S/CO (0.00-0.79); ~Hepatitis A Antibody IgM Nonreactive (Nonreactive); ~Hepatitis B Surface Antibody REACTIVE (Nonreactive); ~Hepatitis C Antibody Nonreactive (Nonreactive)
[2023-01-10 07:13] LABS: Anti DNA DS Antibody 1 IU/mL
[2023-01-10 11:03] LABS: TS Negative Control Passed; TS Panel A 0; TS Panel B 0; TS Positive Control Passed; TSpotTB Negative (Negative)
== END 2023-01-07 10:45 | disposition home or self-care (01) ==
LOC: HO.LAB 10:44
PROVIDERS: Absent Provider Nurse Practitioner Family; PCP Nurse Practitioner Family; Visit Provider Internal Medicine Rheumatology
DX: Z00.00 Encounter for general adult medical examination without abnormal findings (principal)
CPT/HCPCS: 36415; 81001; 84156; 84443; 85025; 85652; 86160; 86225; 86481; 86704; 86706; 86709; 86735; 86762; 86765; 86787; 86803; 87340; 99212

== ENCOUNTER 2023-01-26 09:32 | Emergency (ER) | payer OTHER, SELFPAY ==
[2023-01-26 09:34] VITALS: BP 149/89; PULSE 108; TEMP 35.8; O2SAT 99; BMI 44.6
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
[2023-01-26] MEDS: predniSONE 20 MG TABLET PO (11:00)
[2023-01-26] MEDS: Cyclobenzaprine HCl 5 MG TABLET PO (11:00)
[2023-01-26] MEDS: Ketorolac Tromethamine 15 MG/ML VIAL IM (11:00)
--- NOTE | 2023-01-26 11:06 | PC.NURSE ---
pt medicated per oct for 05/12 low back pain
== END 2023-01-26 11:49 | disposition home or self-care (01) ==
PROVIDERS: Emergency Provider Emergency Medicine; PCP Nurse Practitioner Family
DX: M54.50 Low back pain, unspecified (principal); E66.9 Obesity, unspecified; Z68.41 Body mass index [BMI] 40.0-44.9, adult; Z87.891 Personal history of nicotine dependence; L93.1 Subacute cutaneous lupus erythematosus; Z79.899 Other long term (current) drug therapy
CPT/HCPCS: 96372; 99283; 99284; J1885

== ENCOUNTER 2023-01-28 10:01 | Outpatient (REF) | payer OTHER, SELFPAY ==
[2023-01-28 16:17] LABS: CT PCR NOT DETECTED (Not Detect.); NG PCR NOT DETECTED (Not Detect.)
[2023-01-29 12:53] LABS: BV Int Neg Control Negative (Negative); BV Int Pos Control Positive (Positive)
== END 2023-01-28 10:02 | disposition home or self-care (01) ==
LOC: HO.LNP 10:01
PROVIDERS: PCP Nurse Practitioner Family; Visit Provider Advanced Practice Midwife
DX: Z01.419 Encounter for gynecological examination (general) (routine) without abnormal findings (principal); E66.01 Morbid (severe) obesity due to excess calories; Z20.2 Contact with and (suspected) exposure to infections with a predominantly sexual mode of transmission; Z68.41 Body mass index [BMI] 40.0-44.9, adult; Z79.899 Other long term (current) drug therapy
CPT/HCPCS: 0353U; 87480; 87510; 87660

== ENCOUNTER 2023-02-10 22:38 | Emergency (ER) | payer OTHER, SELFPAY ==
--- NOTE | 2023-02-10 | ECG_ITS ---
Test Reason : CHEST PAIN Blood Pressure : / mmHG Vent. Rate : 092 BPM Atrial Rate : 092 BPM P-R Int : 148 ms QRS Dur : 078 ms QT Int : 362 ms P-R-T Axes : 052 022 033 degrees QTc Int : 447 ms Normal sinus rhythm Normal ECG When compared with ECG of 20-MAR-2022 08:16, No significant change was found Referred By: Generic ED Physician Electronically Signed By:MIRIAM MEJIA MD
--- NOTE | ~2023-02-10 | XR_ITS ---
EXAMINATION: XR CHEST CLINICAL INFORMATION: Sternal pain COMPARISON: 05/27/2017 TECHNIQUE: 2 views of the chest were obtained. FINDINGS: The lungs are clear with no focal consolidation. No evidence of pneumothorax, pulmonary edema, or pleural effusions. The cardiomediastinal silhouette is unremarkable. No acute osseous findings. XR/XR chest 2V IMPRESSION: No acute cardiopulmonary findings.
[2023-02-10 23:22] LABS: MANUAL DIFF FLAG NO
[2023-02-10 23:35] LABS: Basophils Percent Auto 0.2 % (0-2); Eosinophils Percent Auto 0.3 % (0-4); Hematocrit 38.6 % (37.0-47.0); Imm Gran Abs Auto 0.05 X10*3/uL (0.00-0.03); Imm Gran Pct Auto 0.4 % (0.0-0.4); Lymphocytes Absolute Auto 2.6 X10*3/uL (1.2-4.9); Lymphocytes Percent Auto 20.8 % (20-40); Mean Corpuscular HGB Conc 31.1 g/dl (31.0-35.0); Mean Corpuscular Hemoglobin 25.8 pg (27.0-33.0); Mean Platelet Volume 9.5 fL (9.4-12.3); Monocytes Absolute Auto 0.7 X10*3/uL (0.1-1.2); Monocytes Percent Auto 5.7 % (2-11); Neutrophils Absolute Auto 9.1 x10*3/uL (2.0-8.3); Neutrophils Percent Auto 72.6 % (45-73); Platelet Count 287 X10*3/uL (160-400); Red Blood Count 4.65 X10*6/uL (4.20-5.50); Red Cell Distribution Width 13.6 % (11.0-16.0); White Blood Count 12.5 X10*3/uL (4.8-10.8)
[2023-02-10 23:45] LABS: Anion Gap 16 (12-20); Blood Urea Nitrogen 16 mg/dL (9-16); Calcium 9.5 mg/dL (8.4-10.2); Carbon Dioxide 22 mmol/L (22-29); Chloride 107 mmol/L (96-108); Estimated Glomerular Filt Rate > 60; Glucose Random 119 mg/dL (60-115); Potassium 3.5 mmol/L (3.3-5.1); Sodium 141 mmol/L (135-145)
[2023-02-10 23:53] LABS: Troponin-I High Sensitivity 3.4 ng/L (<3.5-17.0)
[2023-02-10 23:54] VITALS: BP 159/102; PULSE 92; RESP 22; TEMP 36.5; O2SAT 99; BMI 48.1
--- NOTE | 2023-02-11 00:31 | ED.CHESTPAIN ---
HPI - Chest Pain General Chief Complaint: Chest Pain Stated Complaint: Chest pain/Diff breathing since T-1 Time Seen by Provider: 02/11/23 00:14 Source: patient Mode of arrival: ambulatory Limitations: no limitations History of Present Illness HPI narrative: Patient obese with history of anxiety and depression complaining of left-sided chest pain since yesterday greatest to the right arm increases on palpation and movement feels short of breath as pain increases in taking a deep breath no cough no fever patient does have lupus and takes ibuprofen and hydroxychloroquine daily Related Data Home Medications Medication Instructions Recorded Confirmed lidocaine 5 % topical patch 1 patch topical DAILY PRN 07/23/22 01/28/23 Previous Rx's Medication Instructions Recorded ibuprofen 600 mg tablet 600 mg PO TID #90 tabs 11/24/22 cyclobenzaprine 5 mg tablet 5 mg PO TID PRN muscle spasm 7 01/26/23 days #21 tabs naproxen 500 mg tablet 500 mg PO BID 7 days #14 tabs 01/26/23 prednisone 20 mg tablet 20 mg PO DAILY 7 days #7 tabs 01/26/23 nicotine 21 mg/24 hr daily 1 patch transdermal DAILY #28 ea 01/28/23 transdermal patch hydroxychloroquine 200 mg tablet 200 mg PO BID #60 tabs 02/03/23 ibuprofen 600 mg tablet 600 mg PO Q6H PRN fever or pain 02/11/23 #30 tabs morphine 15 mg immediate release 15 mg PO TID PRN pain #10 tabs 02/11/23 tablet Allergies Allergy/AdvReac Type Severity Reaction Status Date / Time Nickel Allergy Unknown hives Uncoded 01/28/23 10:07 Review of Systems Review of Systems: Yes all other systems are reviewed and are negative PMFSH Past Medical History Medical History Anxiety Carpal tunnel syndrome, bilateral Cervical cancer screening Depression Hidradenitis suppurativa Lupus Morbid obesity Substance abuse Systolic murmur Surgical History H/O tubal ligation History of laparoscopic cholecystectomy Hx of section Status post cholecystectomy Family History Family History Mother Diabetes Hypertension Substance use disorder Mental health disorder Social History Social History Housing: Apartment Alcohol intake: current Alcohol intake frequency: does not drink Patient Tobacco Use Status: Former Tobacco user Tobacco use type: Cigarette Cigarettes Per Day: 5 Smoked in Last 30 Days: Yes e-Cigarette/Vaping Use: Never Used Use of substances other than those prescribed or required for medical reasons: Yes Advance Directives: No Advance Directives Information Provided: No Patient : No Current occupational status: unemployed 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 Oriented X3. In mild distress ENT: Pharynx normal. Oral Mucosa moist Neck: Normal inspection. Neck supple. CVS: Normal heart rate and rhythm. Pulses normal. Respiratory: No respiratory distress. Equal air entry bilateral, no wheezing/rales/rhonchi tender to touch left 2nd intercostal space Abdomen: Soft and nontender. Bowel sounds are present, no mass palpable, no CVA tenderness Skin: Skin warm and dry. Normal skin color. Normal skin turgor. Extremities: No lower extremity edema. No calf tenderness Neuro: Oriented X 3. No motor deficit. Medications Administered Discontinued Medications Generic Name Dose Route Start Last Admin Trade Name Richieq PRN Reason Stop Dose Admin Ketorolac Tromethamine 60 mg 02/11/23 00:47 02/11/23 00:55 Ketorolac Tromethamine 60 Mg/2 Ml Vial IM 02/11/23 00:48 60 mg ONCE ONE Administration Morphine Sulfate 15 mg 02/11/23 00:47 02/11/23 00:55 Morphine Sulfate Immed Release 15 Mg Tablet PO 02/11/23 00:48 15 mg ONCE ONE Administration Medical Decision Making Lab Data 02/10/23 23:13 02/10/23 23:13 Labs: Lab Results 07/11/23 07/11/23 07/11/23 Range/Units 23:13 23:13 23:13 WBC 12.5 H (4.8-10.8) X10*3/uL RBC 4.65 (4.20-5.50) X10*6/uL Hgb 12.0 (12.0-16.0) g/dl Hct 38.6 (37.0-47.0) % MCV 83.0 (80.0-98.0) fL MCH 25.8 L (27.0-33.0) pg MCHC 31.1 (31.0-35.0) g/dl RDW 13.6 (11.0-16.0) % Plt Count 287 (160-400) X10*3/uL MPV 9.5 (9.4-12.3) fL Immature Gran % (Auto) 0.4 (0.0-0.4) % Neut % (Auto) 72.6 (45-73) % Lymph % (Auto) 20.8 (20-40) % [place] % (Auto) 5.7 (2-11) % Eos % (Auto) 0.3 (0-4) % Baso % (Auto) 0.2 (0-2) % Lymph # (Auto) 2.6 (1.2-4.9) X10*3/uL [place] # (Auto) 0.7 (0.1-1.2) X10*3/uL Eos # (Auto) 0.0 (0.0-0.4) X10*3/uL Baso # (Auto) 0.0 (0.0-0.2) X10*3/uL Abs Immat Gran (auto) 0.05 H (0.00-0.03) X10*3/uL Absolute Neuts (auto) 9.1 H (2.0-8.3) x10*3/uL Absolute Nucleated RBC 0.000 (0.0-0.012) X10*3/uL Nucleated RBC % (auto) 0.0 (0.0-0.2) /100WBC Sodium 141 (135-145) mmol/L Potassium 3.5 D (3.3-5.1) mmol/L Chloride 107 (96-108) mmol/L Carbon Dioxide 22 (22-29) mmol/L Anion Gap 16 (12-20) BUN 16 (9-16) mg/dL Creatinine 0.85 (0.5-1.4) mg/dL Estim Creat Clear Calc TNP Estimated GFR > 60 Random Glucose 119 H (60-115) mg/dL Calcium 9.5 (8.4-10.2) mg/dL Troponin I High Sens 3.4 (<3.5-17.0) ng/L Discharge Plan Discharge Clinical Impression: Acute costochondritis Patient Disposition: Home, Self-Care Instructions: Costochondritis (ED) Additional Instructions: Take ibuprofen for pain Morphine for severe pain Follow with PCP if not better Prescriptions: New ibuprofen 600 mg tablet 600 mg PO Q6H PRN (Reason: fever or pain) Qty: 30 0RF morphine 15 mg tablet 15 mg PO TID PRN (Reason: pain) Qty: 10 0RF Rx Instructions: Partial Fill upon patient request. No Action ibuprofen 600 mg tablet 600 mg PO TID Qty: 90 3RF nicotine 21 mg/24 hr patch 24 hour 1 patch transdermal DAILY Qty: 28 0RF Rx Instructions: please take off patch before bed hydroxychloroquine 200 mg tablet 200 mg PO BID Qty: 60 3RF prednisone 20 mg tablet 20 mg PO DAILY 7 Days Qty: 7 0RF naproxen 500 mg tablet 500 mg PO BID 7 Days Qty: 14 0RF cyclobenzaprine 5 mg tablet 5 mg PO TID PRN (Reason: muscle spasm) 7 Days Qty: 21 0RF lidocaine 5 % adhesive patch,medicated 1 patch topical DAILY PRN Rx Instructions: leave on most painful area for up to 12 hrs Interventions: ED Discharge Assessment Last Done: 02/11/23 02:04 Discharge Date/Time: 02/11/23 02:04
[2023-02-11] MEDS: Ketorolac Tromethamine 60 MG/2 ML VIAL IM (00:55)
[2023-02-11] MEDS: Morphine Sulfate Immed Release 15 MG TABLET PO (00:55)
[2023-02-11 01:52] VITALS: BP 147/86; PULSE 79; RESP 14; O2SAT 99
== END 2023-02-11 02:04 | disposition home or self-care (01) ==
PROVIDERS: Emergency Provider Internal Medicine; PCP Nurse Practitioner Family
DX: M94.0 Chondrocostal junction syndrome [Tietze] (principal); E66.01 Morbid (severe) obesity due to excess calories; Z68.42 Body mass index [BMI] 45.0-49.9, adult; Z87.891 Personal history of nicotine dependence; Z79.899 Other long term (current) drug therapy
CPT/HCPCS: 36415; 71046; 80048; 84484; 85025; 93005; 96372; 99284; 99285; J1885

== ENCOUNTER → 2023-02-10 23:01 | Outpatient (BNV) | payer OTHER, SELFPAY | PROVIDERS: Emergency Provider Internal Medicine; PCP Nurse Practitioner Family; Visit Provider Internal Medicine Cardiovascular Disease | DX: R07.9 Chest pain, unspecified (principal) | CPT/HCPCS: 93010 ==

== ENCOUNTER 2023-05-14 09:32 | Outpatient (AMB) | payer OTHER, SELFPAY ==
--- NOTE | 2023-05-14 09:36 | A.OFFVIS_ITS ---
Intake Vital Signs 05/14/23 09:45 Height 5 ft 4 in Weight 278 lb 0.046 oz BMI 47.7 BP 122/90 H Blood Pressure Location Lt brachial Position Sitting Pulse 86 Pulse Source Pulse Oximeter Temp 97 F Temp Source Skin Pulse Oximetry (%) 99 Oxygen Delivery Method Room Air Intake Visit Reasons: cut LE Intake Note: Patient here for cut on left leg. Her concern is regarding plaquenil. Per patient, she has not taken it in 2 weeks due to it not being filled. 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 She remains on hydroxychloroquine 200 b.i.d. but has missed the last 2 weeks of dosing. For some reason it was not at the pharmacy when she went to pick it up. As result of that she has developed some redness and swelling of the skin of the face. She also had seen a pinball machine repairer earlier this summer and he also gave her a course of prednisone that resolved the problem until recently. She reports that she was told to stop drinking and smoking. She is on some Chantix at this point but notes that whenever she stops that she start smoking again. Also she tends to be drinking heavily every day, particularly when she is not working. 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 This does result in some more neck, back and shoulder pains as it is a fairly active job. [facility] Medical History Anxiety Carpal tunnel syndrome, bilateral Cervical cancer screening Depression Hidradenitis suppurativa Lupus Morbid obesity Substance abuse Systolic murmur Surgical History Status post cholecystectomy History of laparoscopic cholecystectomy H/O tubal ligation Hx of section Family History Mother Diabetes Hypertension Substance use disorder Mental health disorder Social History (Updated 05/14/23 @ 09:45 by WILL Jack Housing: Apartment Alcohol intake: current Alcohol intake frequency: does not drink Patient Tobacco Use Status: Former Tobacco user Tobacco use type: Cigarette Cigarettes Per Day: 20 e-Cigarette/Vaping Use: Never Used Current occupational status: unemployed 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 Negative for appetite change, weight change, fever, chills, malaise Eyes Details: Negative for vision change, dry eyes,headaches and dizziness ENT Details: Negative for hearing change, tinnitus, oral ulcer, nose bleeds and oral dryness. Psych Details: Notes some increased stress with the recent break-up and anniversary of her mother's . She also has been drinking about a pt per day most days of the week. She denies any withdrawal symptoms. Negative for anxiety, depression and stress Endo Details: Negative for polyuria and polydypsia [place]/Lymph Details: Negative for excessive bruising or bleeding. Physical Exam Vital Signs: Last Vital Signs Temp 97 F 05/14/23 09:45 Pulse 86 05/14/23 09:45 BP 122/90 H 05/14/23 09:45 Pulse Ox 99 05/14/23 09:45 Oxygen Delivery Method Room Air 05/14/23 09:45 BMI result Body Mass Index 47.7 APPEARANCE: Patient in no acute distress EYES no redness, pupils equal and reactive to light, eyelids normal EARS: External ear normal, canal clear and tympanic membrane normal. NOSE/SINUS: Airflow through both nares, no nasal discharge, no bleeding THROAT: Oral mucosa moist, no ulcerations NECK: No thyromegaly or masses, no adenopathy, trachea midline. HEART: Regulrar rhythm, S1-S2 heard, no murmurs, rubs or gallops. LUNG: Clear to percussion and auscultation ABD: Normal bowel sounds, no organomegaly, masses or tenderness. EXTREMITIES: No edema, no calf tenderness, normal peripheral pulses. NEURO: Oriented and alert x3. No focal weakness. Reflexes symmetric. Gait normal. SKIN: Raised area of red skin across the face in a few similar raised areas over the forehead. None of these are tender. There is no blistering or breaks in the skin. The skin elsewhere looks normal. The skin exam looks similar to her previous presentation. JOINT EXAM: Cervical Spine:.? Mild discomfort with extremes of range of motion.? There is minimal slight cervical muscle tenderness on the left. Thoracic Spine:.? No scoliosis.? No tenderness on palpation. Lumbar Spine:.? Alignment normal.? Mild pain at the extremes of normal range of motion.? No tenderness. Chest Wall:.? No tenderness, swelling, increased warmth or erythema. Hands:.? Normal pain-free range of motion with some slight tenderness at the base of the thumbs.? This is a bit more prominent on the right are there is some bony enlargement.? Elsewhere in the hand the joints have no tenderness, swelling, increased warmth or erythema.? No thenar atrophy.? There may be some decreased sensation over the tip of the left thumb.? No objective signs of Raynaud's phenomenon.. Wrists:.? Normal pain-free range of motion without tenderness, swelling, increased warmth or erythema.? Negative Phalen's and Tinel signs. Elbows:. Normal pain-free range of motion without tenderness, swelling, increased warmth or erythema. Shoulders:??Left: Mild discomfort with extremes of abduction or internal rotation. There is some slight anterior tenderness without axillary adenopathy, abductor weakness or swelling. Right: Full range of motion without pain. No tenderness, weakness, swelling, increased warmth or erythema. Hips:? Full range of motion without pain. Hip bursa:? No tenderness. Knees:?Normal pain-free range of motion with mild patellofemoral crepitus and some valgus deformity.? No effusions,tenderness, swelling, increased warmth or erythema.? Ankles:.? Normal pain-free range of motion without tenderness, swelling, increased warmth or erythema. Feet:.? Normal pain-free range of motion without tenderness, swelling, increased warmth or erythema. Tender points:.? No tenderness to digital palpation at the occiput, trapezius, second rib, lateral epicondyle, knees, greater trochanter and gluteal area bilaterally. Results Reviewed Results Reviewed: Laboratory Tests 01/07/23 02/10/23 11:52 23:13 WBC 12.5 H Hgb 12.0 ESR 12 Laboratory Tests 02/04/22 02/04/22 01/07/23 10:07 10:07 11:52 BEE Screen NEGATIVE Sm (Bobby) Antibody <1.0 NEG SM/TOUR ACTOR IgG Antibody <1.0 NEG Double Strand DNA Ab 1 Complement C3 174 Complement C4 35 Assessment & Plan Assessment & Plan (1) Acute cutaneous lupus erythematosus: Comment: Neg BEE, anti-DNA, SHARA Code(s): L93.1 - Subacute cutaneous lupus erythematosus Plan Once again she has an inflammatory malar rash. She claims it does respond to prednisone. I suspect that it might have flared up again because she ran out of the hydroxychloroquine. I did sendin a new refill on that. We again will try a course of prednisone as before: 30 mg daily for 3 days, 20 mg daily for 3 days and then 10 mg daily for 3 days. She was encouraged to stop the smoking and the alcohol use. It sounds as if she may have significant addictive problems with alcohol and with cigarettes. I suggest she follow through with that on a discussion with her primary about referral for additional treatment for those problems. She has some scattered arthralgias but no signs of an active inflammatory disease that would suggest systemic lupus. Additionally the BEE and other serologies have been negative. We will see her back in about 4 m [facility]. Medications: New prednisone 3 daily for 3 days, 2 daily for 3 days, one daily for 3 days 18 tabs 0RF L93.1 - Subacute cutaneous lupus erythematosus Refilled hydroxychloroquine 200 mg PO BID 60 tabs 5RF L93.1 - Subacute cutaneous lupus erythematosus Coding Level of Care Code Est Pt Level 3 (21396) Diagnoses Acute cutaneous lupus erythematosus L93.1
[2023-05-14 09:45] VITALS: BP 122/90; PULSE 86; TEMP 36.1; O2SAT 99; BMI 47.7
== END 2023-05-14 10:09 | disposition home or self-care (01) ==
PROVIDERS: PCP Nurse Practitioner Family; Visit Provider Internal Medicine Rheumatology
DX: L93.1 Subacute cutaneous lupus erythematosus (principal)
CPT/HCPCS: 99213

== ENCOUNTER → 2023-05-14 09:32 | Outpatient (BNVA) | payer OTHER, SELFPAY | PROVIDERS: PCP Nurse Practitioner Family; Visit Provider Internal Medicine Rheumatology | DX: L93.1 Subacute cutaneous lupus erythematosus (principal) | CPT/HCPCS: 99212 ==

== ENCOUNTER 2023-10-08 08:56 | Outpatient (AMB) | payer OTHER, SELFPAY ==
--- NOTE | 2023-10-08 08:57 | MHC.OFFVIS ---
Intake Vital Signs 10/08/23 08:59 Height 5 ft 4 in Weight 294 lb 8.601 oz BMI 50.6 BP 142/86 H Blood Pressure Location Lt brachial Position Sitting Pulse 100 Pulse Source Pulse Oximeter Temp 96.3 F L Temp Source Skin Pulse Oximetry (%) 98 Oxygen Delivery Method Room Air Intake Visit Reasons: cut LE Intake Note: Patient last seen by Dr Quintana on 05/14/23 presents today for follow up. Reports issues with weight gain, joint pains and headaches. She is requesting refill on ibuprofen Elementary Secretary Required: No Accompanied by: Self / Same As Patient Allergies Nickel Allergy (Unknown, Uncoded 10/08/23 09:02) hives Medication List - Last Reconciled 10/08/23 by Dorinda Orozco MD hydroxychloroquine 200 mg PO BID ibuprofen 600 mg PO TID HPI HPI Comments History of Present Illness Details 38-year-old female with cutaneous lupus returns for follow-up. She is on hydroxychloroquine 200 mg Twice daily. She states that she continues to get intermittent flare-ups of her malar rash. She can not think of any triggering factors. She has been in a lot of pain especially in her neck, upper back, shoulders. 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 She has difficulty falling and staying asleep. Even if she sleeps 10 hours she wakes up in pain. Most recent history by Dr. 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 She remains on hydroxychloroquine 200 b.i.d. but has missed the last 2 weeks of dosing. For some reason it was not at the pharmacy when she went to pick it up. As result of that she has developed some redness and swelling of the skin of the face. She also had seen a chainstitch hemmer earlier this summer and he also gave her a course of prednisone that resolved the problem until recently. She reports that she was told to stop drinking and smoking. She is on some Chantix at this point but notes that whenever she stops that she start smoking again. Also she tends to be drinking heavily every day, particularly when she is not working. 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 This does result in some more neck, back and shoulder pains as it is a fairly active job. [facility] Medical History Morbid obesity Lupus Cervical cancer screening Systolic murmur Hidradenitis suppurativa Substance abuse Depression Carpal tunnel syndrome, bilateral Anxiety Surgical History Status post cholecystectomy History of laparoscopic cholecystectomy H/O tubal ligation Hx of section Family History Mother Diabetes Hypertension Substance use disorder Mental health disorder Social History Housing: Apartment Alcohol intake: current Alcohol intake frequency: does not drink Patient Tobacco Use Status: Former Tobacco user Tobacco use type: Cigarette Cigarettes Per Day: 20 e-Cigarette/Vaping Use: Never Used Current occupational status: unemployed 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 Current occupational exposures/hazards: Yes Gender identity: Female Cognitive needs: No Hearing needs: No Vision needs: No Female Reproductive History Menstrual Age of Menarche: 13 Review of Systems Const Reports fatigue and Reports weakness ENT Reports neck pain Resp Reports no additional complaints Musc Reports back pain, Reports arthralgias, Reports neck pain and Reports stiffness Skin/Breast Reports erythema and Reports rash Neuro Reports weakness Endo Reports fatigue Physical Exam Vital Signs: Last Vital Signs Temp 96.3 F L 10/08/23 08:59 Pulse 100 10/08/23 08:59 BP 142/86 H 10/08/23 08:59 Pulse Ox 98 10/08/23 08:59 Oxygen Delivery Method Room Air 10/08/23 08:59 BMI result Body Mass Index 50.6 Const General: cooperative, healthy appearing and comfortable Nutritional Appearance: obese morbidly obese Orientation/consciousness: patient oriented x3 Limitations: no limitations HEENT Head: Yes normocephalic and Yes atraumatic Mouth: moist mucous membranes Resp Effort & Inspection: normal respiratory effort and able to speak in complete sentences Auscultation: clear to auscultation bilaterally Cardio Rate: regular rate Rhythm: regular rhythm Skin Other: Erythematous malar rash Similar rashes on eyebrows and forehead Neuro General: patient oriented x3 Extrem Other: No active synovitis Normal nailfold capillaroscopy Assessment & Plan Assessment & Plan (1) Acute cutaneous lupus erythematosus: Comment: Neg BEE, anti-DNA, SHARA started around 2013 dx around 2021 HCQ 07/2022 Code(s): L93.1 - Subacute cutaneous lupus erythematosus Plan: 38-year-old female with acute cutaneous lupus returns for follow-up. On Hydroxychloroquine 200 mg Twice daily. Continues to have intermittent malar rash. No triggers could be identified Continue with hydroxychloroquine 200 mg Twice daily (2) Fibromyalgia, primary: Code(s): M79.7 - Fibromyalgia Plan: Advised patient to work on her sleep, consider a sleep study referral from her PCP Consider evaluation by a psychotherapist (3) NSAID long-term use: Code(s): Z79.1 - nursing home (current) use of non-steroidal anti-inflammatories (NSAID) Plan: Discussed long-term side effects of NSAIDs. Will monitor safety labs. Advised patient to try to use Tylenol as much as possible and use ibuprofen when absolutely needed. (4) Long-term use of hydroxychloroquine: Code(s): Z79.899 - Other longterm (current) drug therapy Plan: Discussed risk of retinopathy associated with hydroxychloroquine. Patient has not been seen by Ophthalmology in more than a year and a half. Advised patient to make an appointment with copyright manager Plan I spent 30 minutes reviewing patient's chart, evaluating patient, ordering diagnostic workup, counseling patient and documenting in the chart Orders: Orders Complement C3 Today M32.9 - Systemic lupus erythematosus, unspecified Complete Blood Count Auto Diff Today M32.9 - Systemic lupus erythematosus, unspecified Comprehensive Met. Panel Today M32.9 - Systemic lupus erythematosus, unspecified Complement C4 Today M32.9 - Systemic lupus erythematosus, unspecified Anti DNA DS Antibody Today M32.9 - Systemic lupus erythematosus, unspecified Protein Creatinine Ratio, Ur Today M32.9 - Systemic lupus erythematosus, unspecified UA w Microscopic Today M32.9 - Systemic lupus erythematosus, unspecified Medications: Changed From ibuprofen 600 mg PO TID 90 tabs 3RF M18.0 - Bilateral primary osteoarthritis of first carpometacarpal joints, M75.82 - Other shoulder lesions, left shoulder To ibuprofen 600 mg PO BID PRN 60 tabs 2RF pain M18.0 - Bilateral primary osteoarthritis of first carpometacarpal joints, M75.82 - Other shoulder lesions, left shoulder Refilled hydroxychloroquine 200 mg PO BID 180 tabs 1RF L93.1 - Subacute cutaneous lupus erythematosus Coding Level of Care Code Est Pt Level 4 (72315) Diagnoses Acute cutaneous lupus erythematosus L93.1 Fibromyalgia, primary M79.7 NSAID long-term use Z79.1 Long-term use of hydroxychloroquine Z79.899
[2023-10-08 08:59] VITALS: BP 142/86; PULSE 100; TEMP 35.7; O2SAT 98; BMI 50.6
== END 2023-10-08 09:28 | disposition home or self-care (01) ==
PROVIDERS: PCP Nurse Practitioner Family; Visit Provider Student in an Organized Health Care Education/Training Program
DX: L93.1 Subacute cutaneous lupus erythematosus (principal); M79.7 Fibromyalgia; Z79.1 Long term (current) use of non-steroidal anti-inflammatories (NSAID); Z79.899 Other long term (current) drug therapy
CPT/HCPCS: 99214

== ENCOUNTER → 2023-10-08 08:56 | Outpatient (BNVA) | payer OTHER, SELFPAY | PROVIDERS: PCP Nurse Practitioner Family; Visit Provider Student in an Organized Health Care Education/Training Program | DX: M79.7 Fibromyalgia (principal); L93.1 Subacute cutaneous lupus erythematosus; Z79.1 Long term (current) use of non-steroidal anti-inflammatories (NSAID); Z79.899 Other long term (current) drug therapy | CPT/HCPCS: 99212 ==

== ENCOUNTER 2023-10-08 09:51 | Outpatient (REF) | payer OTHER, SELFPAY ==
[2023-10-08 11:38] LABS: MANUAL DIFF FLAG NO
[2023-10-08 11:42] LABS: Appearance Urine Clear; Color Urine Yellow; Glucose Urine UA Negative (Negative); Leukocyte Esterase Urine Negative (Negative); Nitrite Urine Negative (Negative); Urine Blood Negative (Negative); Urine Ketones Negative (Negative); Urine Protein Negative (Neg-Trace)
[2023-10-08 11:45] LABS: Bacteria Urine None Seen (None Seen); Hyaline Casts Urine 0-2 /LPF (0-2); RBC Urine 0-2 /HPF (0-2); Squamous Epithelial Cell Urine 0-2 /HPF (0-2); WBC Urine 0-5 /HPF (0-5)
[2023-10-08 11:46] LABS: Basophils Percent Auto 0.5 % (0-2); Eosinophils Absolute Auto 0.2 X10*3/uL (0.0-0.4); Eosinophils Percent Auto 1.8 % (0-4); Hematocrit 41.2 % (37.0-47.0); Hemoglobin 12.9 g/dl (12.0-16.0); Imm Gran Abs Auto 0.04 X10*3/uL (0.00-0.03); Imm Gran Pct Auto 0.5 % (0.0-0.4); Lymphocytes Absolute Auto 1.8 X10*3/uL (1.2-4.9); Lymphocytes Percent Auto 20.9 % (20-40); Mean Corpuscular HGB Conc 31.3 g/dl (31.0-35.0); Mean Corpuscular Hemoglobin 25.4 pg (27.0-33.0); Mean Corpuscular Volume 81.3 fL (80.0-98.0); Mean Platelet Volume 9.9 fL (9.4-12.3); Monocytes Absolute Auto 0.6 X10*3/uL (0.1-1.2); Monocytes Percent Auto 7.2 % (2-11); Neutrophils Absolute Auto 5.8 x10*3/uL (2.0-8.3); Neutrophils Percent Auto 69.1 % (45-73); Platelet Count 300 X10*3/uL (160-400); Red Blood Count 5.07 X10*6/uL (4.20-5.50); Red Cell Distribution Width 14.6 % (11.0-16.0); White Blood Count 8.4 X10*3/uL (4.8-10.8)
[2023-10-08 11:58] LABS: Alanine Aminotransferase 14 U/L (0-31); Albumin Level 3.9 g/dL (3.5-5.0); Alkaline Phosphatase 69 U/L (39-117); Anion Gap 8 (12-20); Aspartate Amino Transferase 16 U/L (5-31); Bilirubin Total 0.2 mg/dL (0.0-1.0); Blood Urea Nitrogen 18 mg/dL (9-16); Calcium 9.1 mg/dL (8.4-10.2); Carbon Dioxide 28 mmol/L (22-29); Chloride 105 mmol/L (96-108); Estimated Glomerular Filt Rate > 60; Glucose Random 119 mg/dL (60-115); Potassium 4.3 mmol/L (3.3-5.1); Sodium 137 mmol/L (135-145); Total Protein 7.2 g/dL (6.5-8.0)
[2023-10-08 12:32] LABS: Creatinine Urine 39.86 mg/dL; Total Protein Urine Random < 7 mg/dL (<12)
[2023-10-09 18:09] LABS: Anti DNA DS Antibody <1 IU/mL
[2023-10-09 21:08] LABS: Complement C3 166 mg/dL (83-193)
== END 2023-10-08 09:52 | disposition home or self-care (01) ==
LOC: HO.10HDL 09:51
PROVIDERS: Visit Provider Student in an Organized Health Care Education/Training Program
DX: M32.9 Systemic lupus erythematosus, unspecified (principal)
CPT/HCPCS: 36415; 80053; 81001; 82570; 84156; 85025; 86160; 86225

== ENCOUNTER 2023-10-30 06:32 | Emergency (ER) | payer OTHER, SELFPAY ==
--- NOTE | ~2023-10-30 | XR_ITS ---
EXAMINATION: XR LUMBOSACRAL SPINE CLINICAL INFORMATION: Pain COMPARISON: 10/01/2020 TECHNIQUE: Three views of the lumbosacral spine. FINDINGS: Bony mineralization is normal. Minimal anterolisthesis L4 on L5. Vertebral body heights and disc spaces are preserved. Pedicles are intact and SI joints within normal limits. Cholecystectomy clips. XR/XR lumbar spine 2-3V IMPRESSION: Minimal anterolisthesis L4 on L5.
[2023-10-30 06:40] VITALS: BP 189/99; PULSE 103; TEMP 36.8; O2SAT 99; BMI 52.0
[2023-10-30 08:41] VITALS: BP 170/107; PULSE 99; RESP 20; O2SAT 97
--- NOTE | 2023-10-30 08:53 | ED.BACK ---
HPI - Back Pain/Injury General Chief Complaint: Back Pain/Injury Stated Complaint: back pain Time Seen by Provider: 10/30/23 08:41 Source: patient Mode of arrival: ambulatory History of Present Illness HPI Narrative: 38-year-old female with presentation for 1 week of acute on chronic left lower back pain that radiates down to the left lower extremity without bowel or bladder dysfunction and no weakness in that lower extremity, denies any fevers or chills and denies any dysuria. 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 Related Data Previous Rx's Medication Instructions Recorded hydroxychloroquine 200 mg tablet 200 mg PO BID #180 tabs 10/08/23 ibuprofen 600 mg tablet 600 mg PO BID PRN pain #60 tabs 10/08/23 cyclobenzaprine 10 mg tablet 10 mg PO BEDTIME PRN muscle spasm 10/30/23 #5 tabs Allergies Allergy/AdvReac Type Severity Reaction Status Date / Time Nickel Allergy Unknown hives Uncoded 10/08/23 09:02 Review of Systems Review of Systems: Pertinent positives and negatives as stated in HPI PMFSH Past Medical History Source: nursing notes reviewed Medical History Morbid obesity Lupus Cervical cancer screening Systolic murmur Hidradenitis suppurativa Substance abuse Depression Carpal tunnel syndrome, bilateral Anxiety Surgical History Status post cholecystectomy History of laparoscopic cholecystectomy H/O tubal ligation Hx of section Family History Family History Mother Diabetes Hypertension Substance use disorder Mental health disorder Social History Social History Housing: Apartment Alcohol intake: current Alcohol intake frequency: does not drink Patient Tobacco Use Status: Former Tobacco user Tobacco use type: Cigarette Cigarettes Per Day: 20 e-Cigarette/Vaping Use: Never Used Advance Directives: No Advance Directives Information Provided: Yes Current occupational status: unemployed 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 GENERAL: Elevated BMI, Well developed, well nourished, in no acute distress. HEAD: Normocephalic/atraumatic EYES: PERRLA, EOMI EARS: Ext canals without abnormality NOSE: Nares patent bilateral OROPHARYNX: no oral lesions noted, posterior pharynx clear NECK: Supple, no adenopathy LUNGS: Normal breath sounds. No adventitious sounds or accessory muscle use. SpO2<97> CARDIOVASCULAR: Regular rate and rhythm without noted murmurs ABDOMEN: Soft, non-tender, non-distended with bowel sounds. BACK: No midline vertebral tenderness to palpation or step-offs noted, mild tenderness to palpation along the left paraspinal at approximate L4/L5 MUSCULOSKELETAL: No tenderness, deformities, or effusions noted on gross inspection. EXTREMITIES: No cyanosis, clubbing or edema. SKIN: Inspection of the skin reveals no rashes NEUROLOGIC: Alert and oriented x 4. Strength and sensation to light touch were grossly intact x 4. Medical Decision Making Medical Decision Making MDM Narrative: 38-year-old female with history and clinical presentation most consistent with acute on chronic back pain, no concerns at this time for spinal abscess/cord compression/cauda equina or urinary etiology. I reviewed investigations and x-ray significant for chronic spinal changes, patient provided with combination analgesics and lidocaine patch, all plans and results discussed with her at bedside and she was discharged home in stable condition. Differential Diagnosis Differential Diagnoses: The differential diagnosis associated with the presentation includes Please see the discussion above Admission/Observation Consideration of admission/observation: Escalation of care including admission/observation considered Please see the discussion above Radiology Impression Discussion of test interpretation with radiology: I have reviewed the radiologist's reading. Radiologist Impression: Please see the discussion above External Record Review External record reviewed: Outpatient record, Prior outpatient labs and Prior outpatient radiology Critical Care Time Critical Care Time Critical Care Time: Yes Total Critical Care Time: 30 Attestation: I personally attest to this time spent taking care of the patient. Discharge Plan Discharge Clinical Impression: Acute exacerbation of chronic low back pain Patient Disposition: Home, Self-Care Instructions: Back Pain (ED), Lower Back Exercises (ED) Additional Instructions: 1. Tylenol 1000 mg, orally, every 6 hours as needed for pain control. Do not exceed 4000 mg within 24 hours. 2. Ibuprofen 400 mg, orally with milk or food, every 6 hours as needed for pain control. May use this medication in conjunction with Tylenol for improved symptom relief. 3. Lidocaine patch, apply to area of maximal tenderness as directed on the outside packaging. 4. You have been prescribed Flexeril and should only take this at night prior to going to bed as it causes drowsiness. 5. Please follow-up with your primary care doctor to arrange for physical therapy. Return to the ER for any worsening symptoms. Prescriptions: New cyclobenzaprine 10 mg tablet 10 mg PO BEDTIME PRN (Reason: muscle spasm) Qty: 5 0RF No Action ibuprofen 600 mg tablet 600 mg PO BID PRN (Reason: pain) Qty: 60 2RF hydroxychloroquine 200 mg tablet 200 mg PO BID Qty: 180 1RF Referrals: Kojo Jones, B[facility] [employer] WORKER-BC [Primary Care Provider] - Stand Alone Forms: Work/School Release
[2023-10-30] MEDS: Acetaminophen 325 MG TABLET 975 MG PO (09:11)
[2023-10-30] MEDS: Ibuprofen 400 MG TABLET PO (09:11)
[2023-10-30] MEDS: Lidocaine 4 % Patch ADH..PATCH 1 PATCH TRANSDERMA (09:12)
[2023-10-30 09:53] VITALS: BP 170/107; PULSE 99; RESP 20; TEMP 37.2; O2SAT 97
== END 2023-10-30 09:54 | disposition home or self-care (01) ==
PROVIDERS: Emergency Provider Student in an Organized Health Care Education/Training Program; PCP Nurse Practitioner Family
DX: M54.50 Low back pain, unspecified (principal); M32.9 Systemic lupus erythematosus, unspecified
CPT/HCPCS: 72100; 99283

== ENCOUNTER 2023-12-03 08:53 | Outpatient (AMB) | payer OTHER, SELFPAY ==
--- NOTE | 2023-12-03 08:55 | MHC.PC.OV ---
Vital Signs 12/03/23 08:57 Height 5 ft 4 in Weight 299 lb 6 oz BMI 51.4 BP 134/88 Blood Pressure Location Rt brachial Position Sitting Pulse 88 Pulse Source Pulse Oximeter Pulse Oximetry (%) 98 Oxygen Delivery Method Room Air Intake Visit Reasons: Annual PE Intake Note: Patient here for physical exam. Pap: 2022- overdue Allergies Nickel Allergy (Unknown, Uncoded 12/03/23 09:06) hives Medication List - Last Reconciled 12/03/23 by NISH Burdick hydroxychloroquine 200 mg PO BID ibuprofen 600 mg PO BID PRN lidocaine 5% (Lidoderm) 1 patch topical DAILY Tobacco use date assessed: 12/03/23 Dental Screening Dental Screen Date: 12/03/23 Did you have a dental visit in the last 12 months?: No Did you have a dental problem in the last 6 months where you did not have access to dental care?: No Was dental information given to patient?: Patient has dentist HPI Annual PE HPI Details Pt is here for a PE. Will order labs. Has a urogynaecologist. Pt follows up with rheumatology. Pt c/o insomnia. She is interested in trying a medication for this. Will send trazodone. [facility] Medical History Morbid obesity Lupus Cervical cancer screening Systolic murmur Hidradenitis suppurativa Substance abuse Depression Carpal tunnel syndrome, bilateral Anxiety Surgical History Status post cholecystectomy History of laparoscopic cholecystectomy H/O tubal ligation Hx of section Family History Mother Diabetes Hypertension Substance use disorder Mental health disorder Social History Housing: Apartment Alcohol intake: current Alcohol intake frequency: does not drink Patient Tobacco Use Status: Current everyday Tobacco user Tobacco use type: Cigarette Cigarettes Per Day: 7 e-Cigarette/Vaping Use: Never Used Current occupational status: unemployed 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 13333 - PHQ-9 Billing: Patient declined-do not bill Source: Developed by Drs. Mik Rushing, Ronna Hawley, Thien Rebolledo and colleagues, with an educational ned from [employer]. Thrive Questionnaire Date Thrive assessed: 12/03/23 What is your living situation today?: I choose not to answer this question Within the past 12 months, did the food you bought not last and you didn't have the money to get more?: I choose not to answer this question Within the past 12 months, did you worry whether your food would run out before you got money to buy more?: I choose not to answer this question Do you have trouble paying for medicines?: I choose not to answer this question Do you have trouble getting transportation to medical appointments?: I choose not to answer this question Do you have trouble paying your heating and electricity bill?: I choose not to answer this question Do you have trouble taking care of your child, family member or friend?: I choose not to answer this question Do you have trouble with day-to-day activities such as bathing, preparing meals, shopping, managing finances, etc.?: I choose not to answer this question Are you currently unemployed and looking for a job?: I choose not to answer this question Are you interested in more education?: I choose not to answer this question Currently or been in a relationship where the following occur: I choose not to answer this question THRIVE Score: 0 AUDIT C Alcohol Use Questionnaire (AUDIT-C) 1. How often do you have a drink containing alcohol?: Monthly or less 2. How many drinks containing alcohol do you have on a typical day when you are drinking?: 1 or 2 3. How often do you have six or more drinks on one occasion?: Never Total Score: 1 Score Reviewed/Action Taken: No CHARLENE-7 AMB Questionnaire CHARLENE-7 Date CHARLENE - 7 assessed: 12/03/23 Source: Developed by Drs. Mik Rushing, Ronna Hawley, Thien Rebolledo and colleagues, with an educational ned from [employer]. CHARLENE-7 Assessment Billing CHARLENE-7 Assessment Tool: pt declined-do not bill Review of Systems Const Denies chills and Denies fever(s) Eyes Denies blurry vision ENT Denies vertigo, Denies dizziness and Denies sore throat Card Denies chest pain at rest, Denies chest pain with activity, Denies diaphoresis, Denies dyspnea and Denies dyspnea on exertion Resp Denies cough, Denies dyspnea, Denies dyspnea on exertion and Denies wheezing GI Denies abdominal pain, Denies melena, Denies hematochezia, Denies constipation, Denies diarrhea and Denies loose stools Denies hematuria Musc Denies numbness and Denies tingling Skin/Breast Denies lesions Neuro Denies vertigo, Denies dizziness, Denies numbness and Denies tingling Psych Denies anxiety, Denies depression, Denies homicidal ideation, Denies suicidal ideation and Denies other (substance abuse) Aller/Immun Denies wheezing Physical exam (Primary Care) Vital Signs: Last Vital Signs Pulse 88 12/03/23 08:57 BP 134/88 12/03/23 08:57 Pulse Ox 98 12/03/23 08:57 Oxygen Delivery Method Room Air 12/03/23 08:57 BMI result Body Mass Index 51.4 Tobacco/Smoking Status: Tobacco use Status Tobacco use date assessed 12/03/23 12/03/23 09:00 Patient Tobacco Use Status Current everyday Tobacco 12/03/23 09:00 Tobacco use type Cigarette 12/03/23 08:57 e-Cigarette/Vaping Use Never Used 12/03/23 08:57 Thrive Assessment: Date of Thrive Assessment Date Thrive assessed 12/03/23 12/03/23 09:02 Currently or been in a relationship where the following occur: I choose not to answer this question Const General: cooperative Nutritional Appearance: obese morbidly obese Orientation/consciousness: patient oriented x3 HENMT Head: Yes normal to inspection, Yes normocephalic and Yes atraumatic Ears: TM's normal bilaterally Eyes General: appearance normal, both eyes and all related structures Alignment and Position: alignment normal and position normal Neck Neck: Yes normal visual inspection and Yes no lymphadenopathy Thyroid: Thyroid normal Resp Effort & Inspection: normal respiratory effort Auscultation: clear to auscultation bilaterally Cardio Rate: regular rate Rhythm: regular rhythm Heart sounds: S1 normal heart sound present, S2 normal heart sound present and no murmurs GI Palpation (GI): Soft to palpation and nontender Auscultation: normal bowel sounds Skin Other: butterfly rash to face Rashes: no rashes Neuro General: patient oriented x3, moves all extremities, no focal motor deficits and deep tendon reflexes 2+ bilaterally Romberg Test: Negative Psych Appearance: grossly normal Mental Status: mental status grossly normal Speech and movement: Normal speech and movement present Affect: normal affect Attitude: cooperative Thought process: Normal thought process present Thought content: Normal thought content present Insight: Good insight present (Psych) Judgement: Good judgement present (Psych) Assessment and Plan Assessment & Plan (1) Physical exam: Code(s): Z00.00 - Encounter for general adult medical examination without abnormal findings Plan: Labs ordered Plan The patient agreed to the use of a medical office receptionist assistant for this encounter. Scribed for NISH Gamboa by Ashleigh Barry medical office receptionist assistant, on 12/03/2023 at 09:05 EST. Orders: Orders Complete Blood Count Auto Diff Today Z00.00 - Encounter for general adult medical examination without abnormal findings TSH reflex Free T4 Today Z00.00 - Encounter for general adult medical examination without abnormal findings UA CC w/rflx Micro + Cult Today Z00.00 - Encounter for general adult medical examination without abnormal findings Lipid Panel Today Z00.00 - Encounter for general adult medical examination without abnormal findings Comprehensive Edison. Panel Fast Today Z00.00 - Encounter for general adult medical examination without abnormal findings Medications: New trazodone 50 mg PO BEDTIME 90 days PRN 90 tabs 0RF sleep Coding Level of Care Code Est Pt Prev Care 18-39y(95085) Diagnoses Physical exam Z00.00
[2023-12-03 08:57] VITALS: BP 134/88; PULSE 88; O2SAT 98; BMI 51.4
== END 2023-12-03 09:15 | disposition home or self-care (01) ==
PROVIDERS: PCP Nurse Practitioner Family; Visit Provider Nurse Practitioner Family
DX: Z00.00 Encounter for general adult medical examination without abnormal findings (principal)
CPT/HCPCS: 99395

== ENCOUNTER 2024-01-10 12:13 | Emergency (ER) | payer OTHER, SELFPAY ==
--- NOTE | ~2024-01-10 | XR_ITS ---
EXAMINATION: XR LUMBOSACRAL SPINE CLINICAL INFORMATION: No back pain COMPARISON: Lumbar spine radiograph 10/01/2020 TECHNIQUE: Three views of the lumbosacral spine. FINDINGS: Hypoplastic right 12th rib. The lumbar vertebral bodies demonstrate normal height. Degenerative grade 1 anterolisthesis of L4 over L5, slightly increased from prior exam with mild intervertebral disc space narrowing at L4-L5. The remaining lumbar intervertebral disc heights appear preserved. Mild facet arthropathy of the lower lumbar spine. Surgical clips in the right upper quadrant. The paraspinal soft tissues are unremarkable. The sacroiliac joint are intact. Included bowel gas pattern is nonobstructive. XR/XR lumbar spine 2-3V IMPRESSION: No radiographic evidence of acute abnormality involving the lumbar spine. Degenerative grade 1 anterolisthesis of L4 over L5, slightly increased from prior exam. Degenerative facet arthropathy of the lower lumbar spine.
[2024-01-10 13:13] VITALS: BP 150/104; PULSE 90; RESP 16; TEMP 36.2; O2SAT 97; BMI 51.5
--- NOTE | 2024-01-10 13:21 | ED.GENADULT ---
HPI - General Adult General Chief complaint: Back Pain/Injury Stated complaint: Lower back pain, tingling in foot Time Seen by Provider: 01/10/24 14:41 Source: patient Mode of arrival: ambulatory Limitations: no limitations History of Present Illness HPI narrative: patient is a 38-year-old female who presents to the emergency department for evaluation back pain. 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 Trialed acetaminophen and ibuprofen, with no relief. pain is acute on chronic, she has had many episodes in the past. She states she has done physical therapy before. When asked, she is uncertain whether she has been seen by a back specialist, does not believe that she has ever had any MRI imaging of her back. Denies recent fevers, chills, burning with micturition, urinary frequency/urgency/hesitancy, bladder or bowel dysfunction, numbness or tingling of the perineum or bilateral legs. Denies any recent surgical procedures, any known immune compromising conditions, personal history of cancer, or IV drug usage. Related Data Previous Rx's ?Medication ?Instructions ?Recorded hydroxychloroquine 200 mg tablet 200 mg PO BID #180 tabs 10/08/23 ibuprofen 600 mg tablet 600 mg PO BID PRN pain #60 tabs 10/08/23 lidocaine 5 % topical patch 1 patch topical DAILY #15 ea 10/30/23 (Lidoderm) trazodone 50 mg tablet 50 mg PO BEDTIME PRN sleep 90 days 12/03/23 #90 tabs cyclobenzaprine 10 mg tablet 10 mg PO TID PRN muscle spasm #14 01/10/24 tabs lidocaine 5 % topical patch 1 patch topical DAILY #15 ea 01/10/24 (Lidoderm) Allergies Allergy/AdvReac Type Severity Reaction Status Date / Time Nickel Allergy Unknown hives Uncoded 01/10/24 13:13 Review of Systems Review of Systems: Yes all other systems are reviewed and are negative PMFSH Past Medical History Attestation statement: The following information was validated with the patient. Source: old records reviewed Medical History Morbid obesity Lupus Cervical cancer screening Systolic murmur Hidradenitis suppurativa Substance abuse Depression Carpal tunnel syndrome, bilateral Anxiety Surgical History Status post cholecystectomy History of laparoscopic cholecystectomy H/O tubal ligation Hx of section Family History Family History Mother Diabetes Hypertension Substance use disorder Mental health disorder Social History Social History Housing: Apartment Alcohol intake: current Alcohol intake frequency: does not drink Patient Tobacco Use Status: Current everyday Tobacco user Tobacco use type: Cigarette Cigarettes Per Day: 7 e-Cigarette/Vaping Use: Never Used Advance Directives: No Advance Directives Information Provided: No Do you have a plan to hurt others: No Plan Current occupational status: unemployed 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 No acute distress.?Normal affect. Eyes: Pupils equal, round and reactive to light.? ENT: Pharynx normal.?? Neck: Normal inspection.? Neck supple.?? CVS: Heart sounds normal. Normal heart rate and rhythm.? Pulses normal; bilateral radial pulses 2+, bilateral posterior tibial/dorsalis pedis pulses 2+.? Respiratory: No respiratory distress.? Lung sounds clear to auscultation bilaterally?? Abdomen: Soft and non-tender. Normoactive bowel sounds. No pulsatile mass.?? Skin: Skin warm and dry.? Normal skin color.? Normal skin turgor.?? Extremities: No lower extremity edema.? No calf ttp? Back: + mild paraspinal muscular tenderness from lumbar region to coccyx On the left. No CVA tenderness. No midline spinal tenderness, step-off's, or deformity. Full ROM intact in bilateral lower extremities. Straight leg test positive on right; Straight leg test positive on left. No rashes, lesions, areas of induration or fluctuance, or signs of infection noted., Neuro: Moves all extremities spontaneously. 5/5 strength in hip extension/flexion, abduction, adduction. Sensation to light touch intact bilaterally. Patellar and Achilles reflex 2+ bilaterally. No ataxia, gait normal and steady.. No focal neuro deficits. Course Course Course Narrative: RME; done by FRANCHESCA Peralta: 38-year-old female presents to ED for low back pain after lifting a heavy patient. Patient has history of low back pain due to work-related injuries and heavy lifting. Patient denies any urinary/bowel incontinence. Patient denies any abdominal pain nausea vomiting. Patient is positive for lumbar spine tenderness. Lumbar spine x-ray ordered Medications Administered Discontinued Medications Generic Name Dose Route Start Last Admin Trade Name Freq PRN Reason Stop Dose Admin Cyclobenzaprine HCl 10 mg 01/10/24 15:21 01/10/24 15:39 Cyclobenzaprine Hcl 10 Mg Tablet PO 01/10/24 15:22 10 mg ONCE ONE Administration Medical Decision Making Medical Decision Making [facility] Narrative: patient is a 8-year-old female who presents to the emergency department for evaluation of acute on chronic lower back pain as per HPI physical exam portion of this note. Overall she appears uncomfortable, that is ambulatory with a steady gait. She has no focal neurological deficits. No midline lumbar spine tenderness, step-offs, deformities. She is notable tenderness over the left lumbar paraspinal region, at this time suspect Pain is most consistent with muscular pain, although cannot completely exclude herniated disc. On neurological exam there are no deficits. Not consistent with spinal fracture, spinal infection, epidural abscess, AAA, epidural abscess, or dissection. No high risk past medical history including incontinence, fever, immunosuppression, recent surgery or lumbar puncture, coagulopathy, significant trauma, recent unintentional weight loss, pulsatile mass, history of cancer, history of TB, history of IV drug use that would warrant MRI or CT. Not consistent with ectopic , pyelonephritis, urinary tract infection, renal calculi, pelvic infection, appendicitis, diverticulitis. On exam no concern for cauda equina syndrome. No imaging is currently indicated at this time. Plan for discharge home with prescription for cyclobenzaprine and Lidoderm patch, and follow-up with primary care provider, and patient agreed with plan. Differential Diagnosis Differential Diagnoses: The differential diagnosis associated with the presentation includes ( see narrative above) Admission/Observation Consideration of admission/observation: Escalation of care including admission/observation considered ( see narrative above) Independent Interpretation I performed an independent interpretation of an: Plain X-Ray ( no acute lumbar fracture) Radiology Impression Discussion of test interpretation with radiology: I have reviewed the radiologist's reading. Radiologist Impression: XR/XR lumbar spine 2-3V IMPRESSION: No radiographic evidence of acute abnormality involving the lumbar spine. Degenerative grade 1 anterolisthesis of L4 over L5, slightly increased from prior exam. Degenerative facet arthropathy of the lower lumbar spine. External Record Review External record reviewed: Outpatient record Prescription Management I considered prescription management with: Pain Medication Discharge Plan Discharge Clinical Impression: Acute exacerbation of chronic low back pain Patient Disposition: Home, Self-Care Instructions: Low Back Strain (ED), Lower Back Exercises (ED) Additional Instructions: You can take ibuprofen 200 mg, 3 tablets (600mg) every 6-8 hours as needed for pain, in addition to Tylenol 500 mg, 2 tablets (1,000mg) every 4-6 hours as needed for pain, but not to exceed 3 doses daily (3,000mg).? for pain that is unrelieved by / acetaminophen you may take cyclobenzaprine. This is a muscle relaxer. A prescription was sent to your pharmacy. This medication may make you drowsy. Should not drive, drink alcohol, or work while taking this medication. Apply Lidoderm patch to the most pain leave on for 12 hours and keep off for 12 hours following. As discussed please follow-up with your primary care provider for further evaluation treatment. May return back to emergency department any new or worsening symptoms or concerns. Prescriptions: New cyclobenzaprine 10 mg tablet 10 mg PO TID PRN (Reason: muscle spasm) Qty: 14 0RF lidocaine [Lidoderm] 5 % adhesive patch,medicated 1 patch topical DAILY Qty: 15 0RF Rx Instructions: leave on most painful area for up to 12 hrs No Action lidocaine [Lidoderm] 5 % adhesive patch,medicated 1 patch topical DAILY Qty: 15 0RF Rx Instructions: leave on most painful area for up to 12 hrs trazodone 50 mg tablet 50 mg PO BEDTIME PRN (Reason: sleep) 90 Days Qty: 90 0RF ibuprofen 600 mg tablet 600 mg PO BID PRN (Reason: pain) Qty: 60 2RF hydroxychloroquine 200 mg tablet 200 mg PO BID Qty: 180 1RF Referrals: Kojo Jones, SUB ACUTE CARE NURSE-BC [Primary Care Provider] - Stand Alone Forms: Work/School Release Interventions: ED Discharge Assessment Last Done: 01/10/24 15:46 Discharge Date/Time: 01/10/24 15:46 Print Language: Czech
[2024-01-10 14:33] VITALS: BP 145/92; PULSE 82; TEMP 36.3; O2SAT 98
[2024-01-10] MEDS: Cyclobenzaprine HCl 10 MG TABLET PO (15:39)
[2024-01-10 15:46] VITALS: BP 150/87; PULSE 75; RESP 18; TEMP 36.6; O2SAT 99
== END 2024-01-10 15:46 | disposition home or self-care (01) ==
PROVIDERS: Emergency Provider Emergency Medicine; PCP Nurse Practitioner Family
DX: M54.50 Low back pain, unspecified (principal); G89.29 Other chronic pain
CPT/HCPCS: 72100; 99283; 99284

== ENCOUNTER → 2024-02-01 09:03 | Outpatient (BNVA) | payer OTHER, SELFPAY | PROVIDERS: PCP Nurse Practitioner Family; Visit Provider Advanced Practice Midwife ==

== ENCOUNTER 2024-03-16 11:21 | Outpatient (REF) | payer OTHER, SELFPAY ==
[2024-03-16 12:24] LABS: MANUAL DIFF FLAG NO
[2024-03-16 13:24] LABS: Alanine Aminotransferase 18 U/L (0-31); Albumin Level 4.2 g/dL (3.5-5.0); Alkaline Phosphatase 77 U/L (39-117); Anion Gap 12 (12-20); Aspartate Amino Transferase 19 U/L (5-31); Bilirubin Total 0.3 mg/dL (0.0-1.0); Blood Urea Nitrogen 13 mg/dL (9-16); Calcium 10.3 mg/dL (8.4-10.2); Carbon Dioxide 24 mmol/L (22-29); Chloride 107 mmol/L (96-108); Cholesterol 160 mg/dL (<200); Estimated Glomerular Filt Rate > 60; Glucose Fasting 127 mg/dL (60-99); HDL Cholesterol 48 mg/dL (>40); LDL Cholesterol Calculated 91 mg/dL (<100); Potassium 4.4 mmol/L (3.3-5.1); Sodium 139 mmol/L (135-145); Total Protein 7.9 g/dL (6.5-8.0); Triglycerides 105 mg/dL (<150)
[2024-03-16 13:38] LABS: TSH reflex Free T4 0.97 uIU/mL (0.32-4.0)
[2024-03-16 13:40] LABS: Basophils Percent Auto 0.3 % (0-2); Eosinophils Percent Auto 0.5 % (0-4); Hematocrit 43.6 % (37.0-47.0); Hemoglobin 13.9 g/dl (12.0-16.0); Imm Gran Abs Auto 0.02 X10*3/uL (0.00-0.03); Imm Gran Pct Auto 0.3 % (0.0-0.4); Lymphocytes Absolute Auto 2.1 X10*3/uL (1.2-4.9); Lymphocytes Percent Auto 26.8 % (20-40); Mean Corpuscular HGB Conc 31.9 g/dl (31.0-35.0); Mean Corpuscular Hemoglobin 25.4 pg (27.0-33.0); Mean Corpuscular Volume 79.7 fL (80.0-98.0); Mean Platelet Volume 9.9 fL (9.4-12.3); Monocytes Absolute Auto 0.3 X10*3/uL (0.1-1.2); Monocytes Percent Auto 4.2 % (2-11); Neutrophils Absolute Auto 5.3 x10*3/uL (2.0-8.3); Neutrophils Percent Auto 67.9 % (45-73); Platelet Count 320 X10*3/uL (160-400); Red Blood Count 5.47 X10*6/uL (4.20-5.50); Red Cell Distribution Width 14.9 % (11.0-16.0); White Blood Count 7.8 X10*3/uL (4.8-10.8)
[2024-03-16 13:59] LABS: Appearance Urine Clear; Color Urine Yellow; Glucose Urine UA Negative (Negative); Leukocyte Esterase Urine Negative (Negative); Nitrite Urine Negative (Negative); PH 5.5 (5.0-9.0); Specific Gravity - Urine 1.025 (1.005-1.025); Urine Blood Negative (Negative); Urine Ketones Negative (Negative); Urine Protein Negative (Neg-Trace)
[2024-03-16 17:28] LABS: Bacterial Vaginosis PCR POSITIVE (Negative); Candida Group PCR NOT DETECTED (Not Detect); Candida glab krusei PCR NOT DETECTED (Not Detect); Trichomonas vaginalis PCR NOT DETECTED (Not Detect)
[2024-03-16 17:54] LABS: CT PCR NOT DETECTED (Not Detect.); NG PCR NOT DETECTED (Not Detect.)
[2024-03-17 04:47] LABS: Syphilis Screen Nonreactive (Nonreactive)
[2024-03-17 05:02] LABS: HBc Num1 0.06 S/CO (0.00-0.79); HIV AB/AG Nonreactive (Nonreactive); HIV Num 1 0.07 S/CO (0.00-0.99); Hepatitis B Core Antibody Nonreactive (Nonreactive); ~HepC Num1 0.12 S/CO (0.00-0.79); ~Hepatitis C Antibody Nonreactive (Nonreactive)
== END 2024-03-16 11:22 | disposition home or self-care (01) ==
LOC: HO.LAB 11:21
PROVIDERS: PCP Nurse Practitioner Family; Visit Provider Advanced Practice Midwife
DX: Z00.00 Encounter for general adult medical examination without abnormal findings (principal); Z20.2 Contact with and (suspected) exposure to infections with a predominantly sexual mode of transmission
CPT/HCPCS: 0352U; 36415; 80053; 80061; 81003; 84443; 85025; 86704; 86780; 86803; 87389; 87491; 87591; 99395

== ENCOUNTER 2024-03-16 11:21 | Outpatient (AMB) | payer OTHER, SELFPAY ==
--- NOTE | 2024-03-16 11:24 | A.OFFVIS_ITS ---
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 Doing well with no concerns. 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 Regular monthly menses q 21-24, always her normal pattern, occasional will have a very short cycle 15 days, uncertain if it is when she is on prednisone. Currently is sexually active. She denies vaginal itching and irritation. STI screening offered; she accepts. Denies family history of ovarian or colon cancer. Family history of breast cancer-maternal grandmother. Last pap smear 2021, negative. [facility] Medical History Morbid obesity Lupus Cervical cancer screening Systolic murmur Hidradenitis suppurativa Substance abuse Depression Carpal tunnel syndrome, bilateral Anxiety Surgical History Status post cholecystectomy History of laparoscopic cholecystectomy H/O tubal ligation Hx of section Family History Mother Diabetes Hypertension Substance use disorder Mental health disorder Cervical cancer Maternal Grandmother History of breast cancer Social History Housing: Apartment Alcohol intake: current Alcohol intake frequency: a few times a month Patient Tobacco Use Status: Current everyday Tobacco user Tobacco use type: Cigarette Cigarettes Per Day: 10 e-Cigarette/Vaping Use: Never Used Current occupational status: unemployed 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 Current occupational exposures/hazards: Yes Gender identity: Female Cognitive needs: No Hearing needs: No Vision needs: No Female Reproductive History Menstrual Age of Menarche: 13 Duration of menses: 6-7 days Date of last menstrual period: 03/09/24 control method: permanent sterilization Permanent Sterilization: BTL Total pregnancies: 6 Full term: 3 Number of Living Children: 3 Ab spontaneous: 3 Date of last pap smear: 01/24/22 (neg pap and hpv) Review of Systems Const All systems reviewed & are unremarkable except as noted in HPI and below Reports as per HPI Eyes Reports no additional complaints ENT Reports no additional complaints Card Reports no additional complaints Resp Reports no additional complaints GI Reports as per HPI and Reports no additional complaints Reports as per HPI Musc Reports no additional complaints Skin/Breast Reports as per HPI Neuro Reports no additional complaints Psych Reports no additional complaints Endo Reports no additional complaints Austin/Lymph Reports no additional complaints Aller/Immun Reports no additional complaints Physical Exam Vital Signs: Last Vital Signs BP 122/80 03/16/24 11:25 BMI result Body Mass Index 47.0 Const General: cooperative, healthy appearing, no acute distress, well developed and alert Orientation/consciousness: patient oriented x3 HEENT Head: Yes normal to inspection Eyes General: appearance normal, both eyes and all related structures Neck Neck: Yes normal visual inspection Thyroid: Thyroid normal Chest Chest palpation & inspection: normal inspection of the chest and other (no puckering, dimpling, peau de orange, retraction, discharge, masses) Breast/axilla inspection: normal inspection of the breasts Breast/axilla palpation: normal palpation of the breasts Resp Effort & Inspection: normal respiratory effort GI Inspection: Yes normal to inspection and Yes obesity Palpation (GI): Soft to palpation Rectal Exam - Female: deferred General: Yes bladder normal to palpation External Female Exam: normal external appearance and normal appearance of the urethra Speculum Exam - Vagina: normal appearance of the vagina, normal palpation and normal vaginal discharge Speculum Exam - Cervix: normal palpation and Other cervical findings present (Not visualized due to position and deep vaginal length despite longest spec) Bimanual exam- vagina & uterus: normal bimanual exam, normal palpation, uterine size normal, bladder normal to palpation, normal palpation and non-tender Bimanual Exam- Adnexa, other: no masses Skin General skin exam: no rashes or lesions noted Rashes: no rashes Neuro General: patient oriented x3 Cognition (Neuro): normal cognition Extrem General: Yes normal to inspection Psych Attitude: cooperative Thought process: Normal thought process present Assessment & Plan Assessment & Plan (1) Encounter for well woman exam with routine gynecological exam: Code(s): Z01.419 - Encounter for gynecological examination (general) (routine) without abnormal findings Category: Medical Plan Discussed: Current recommendations for pap smears per ASCCP guidelines. Breast awareness and periodic breast exams. Maintain a healthy lifestyle including a well balanced diet and routine exercise. Use condoms for STI prevention. Cultures and lab work obtained today. Encouraged tobacco cessation. Monitor menstrual cycles, report any unscheduled bleeding, bleeding episodes <21 days apart or heavy/prolonged menstrual bleeding. Call the office for a follow up for any concerns. The role of weight management, hormones, medications, and other causes impact the menstrual cycles. Patient verbalizes understanding and agrees to the plan of care. She was given opportunity to ask questions and all questions were answered to the best of my ability. RTO in one year for annual social work administrator examination. This note is constructed using voice recognition software. While every effort has been made to ensure accuracy, fire production operator errors may have been included. Orders: Orders Hepatitis C Antibody Reflex Today Z20.2 - Contact with and (suspected) exposure to infections with a predominantly sexual mode of transmission HIV Ab/Ag Today Z20.2 - Contact with and (suspected) exposure to infections with a predominantly sexual mode of transmission Hepatitis B Core Antibody Today Z20.2 - Contact with and (suspected) exposure to infections with a predominantly sexual mode of transmission Syphilis Screen Today Z20.2 - Contact with and (suspected) exposure to infe ctions with a predominantly sexual mode of transmission Coding Level of Care Code Est Pt Prev Care 18-39y(12700) Diagnoses Encounter for well woman exam with routine gynecological exam Z01.419
[2024-03-16 11:25] VITALS: BP 122/80; BMI 47.0
== END 2024-03-16 12:05 | disposition home or self-care (01) ==
PROVIDERS: PCP Nurse Practitioner Family; Visit Provider Advanced Practice Midwife
DX: Z01.419 Encounter for gynecological examination (general) (routine) without abnormal findings (principal)
CPT/HCPCS: 99395

== ENCOUNTER 2024-03-16 12:25 | Outpatient (REF) | payer OTHER, SELFPAY | END 2024-03-16 12:26 | disposition home or self-care (01) | LOC: HO.LNP 12:25 | PROVIDERS: Visit Provider Advanced Practice Midwife | DX: Z13.89 Encounter for screening for other disorder (principal) ==

== ENCOUNTER 2024-10-13 07:59 | Outpatient (REF) | payer OTHER, SELFPAY ==
[2024-10-13 17:33] LABS: MANUAL DIFF FLAG NO
[2024-10-13 17:34] LABS: Appearance Urine Cloudy; Color Urine Straw; Glucose Urine UA Negative (Negative); Leukocyte Esterase Urine Negative (Negative); Nitrite Urine Negative (Negative); Specific Gravity - Urine >= 1.030 (1.005-1.025); Urine Blood Negative (Negative); Urine Ketones Negative (Negative); Urine Protein Negative (Neg-Trace)
[2024-10-13 18:04] LABS: Basophils Percent Auto 0.3 % (0-2); Eosinophils Absolute Auto 0.1 X10*3/uL (0.0-0.4); Eosinophils Percent Auto 1.1 % (0-4); Hematocrit 42.3 % (37.0-47.0); Hemoglobin 13.5 g/dl (12.0-16.0); Imm Gran Abs Auto 0.01 X10*3/uL (0.00-0.03); Imm Gran Pct Auto 0.2 % (0.0-0.4); Lymphocytes Absolute Auto 2.3 X10*3/uL (1.2-4.9); Lymphocytes Percent Auto 34.5 % (20-40); Mean Corpuscular HGB Conc 31.9 g/dl (31.0-35.0); Mean Corpuscular Volume 81.5 fL (80.0-98.0); Mean Platelet Volume 9.9 fL (9.4-12.3); Monocytes Absolute Auto 0.4 X10*3/uL (0.1-1.2); Monocytes Percent Auto 5.5 % (2-11); Neutrophils Absolute Auto 3.8 x10*3/uL (2.0-8.3); Neutrophils Percent Auto 58.4 % (45-73); Platelet Count 310 X10*3/uL (160-400); Red Blood Count 5.19 X10*6/uL (4.20-5.50); Red Cell Distribution Width 14.5 % (11.0-16.0); White Blood Count 6.6 X10*3/uL (4.8-10.8)
[2024-10-13 18:05] LABS: Alanine Aminotransferase 17 U/L (0-31); Aspartate Amino Transferase 29 U/L (5-31); C Reactive Protein 0.77 mg/dL (< or = 0.50); Estimated Glomerular Filt Rate > 60
[2024-10-13 18:14] LABS: Bacteria Urine None Seen (None Seen); Hyaline Casts Urine 0-2 /LPF (0-2); Other Crystals Urine Present; RBC Urine 0-2 /HPF (0-2); Squamous Epithelial Cell Urine 0-2 /HPF (0-2); WBC Urine 0-5 /HPF (0-5)
[2024-10-13 18:21] LABS: Creatinine Urine 127.19 mg/dL; Protein/Creatinine Ratio, Ur 0.06 (<0.2); Total Protein Urine Random 8 mg/dL (<12)
[2024-10-13 18:52] LABS: Erythrocyte Sedimentation Rate 7 MM/HR (0-20)
[2024-10-14 12:30] LABS: Complement C3 148 mg/dL (83-193)
[2024-10-14 17:13] LABS: Anti DNA DS Antibody <1 IU/mL; SM/Ribonucleoprotein Ab <1.0 NEG AI (<1.0 NEG); Smith Protein <1.0 NEG AI (<1.0 NEG)
[2024-10-20 15:32] LABS: Anti Nuclear Antibody Screen NEGATIVE (NEGATIVE)
== END 2024-10-13 08:00 | disposition home or self-care (01) ==
LOC: HO.HKASLDS 07:59
PROVIDERS: PCP Nurse Practitioner Family; Visit Provider Internal Medicine Rheumatology
DX: L93.1 Subacute cutaneous lupus erythematosus (principal); M54.50 Low back pain, unspecified; G89.29 Other chronic pain; Z79.60 Long term (current) use of unspecified immunomodulators and immunosuppressants; Z79.899 Other long term (current) drug therapy
CPT/HCPCS: 36415; 81001; 82565; 82570; 84156; 84450; 84460; 85025; 85652; 86038; 86140; 86160; 86225; 86235; 99212

== ENCOUNTER 2024-10-13 08:15 | Outpatient (AMB) | payer OTHER, SELFPAY ==
--- NOTE | 2024-10-13 08:01 | A.OFFVIS_ITS ---
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 Since pt has been out of hydroxychloroquin she has been losing hair and weight has been fluctuating. Accompanied by: Spouse Allergies Nickel Allergy (Unknown, Uncoded 03/16/24 11:24) hives HPI HPI Cutaneous lupus: Details: She did not have refills and was out of HCQ since July. Triggered with sweating when at work. She reduced her hours at new job a month ago, which helped. HCQ started 2021. Denies fevers, dyspnea, pleurisy, oral ulcers, Raynaud's syndrome, urinary symptoms. R leg to foot gets numb after sitting for prolonged period of time like getting out of car. Hx chronic back pain. Self -resolves in 3-4 minute. Occurs few times a day. Onset a month ago. She has had history of chronic back pain after injury 4 years. She has completed physical therapy in the past with benefit. She lives with her back pain and sometimes does not even notice it. [facility] Medical History Morbid obesity Lupus Cervical cancer screening Systolic murmur Hidradenitis suppurativa Substance abuse Depression Carpal tunnel syndrome, bilateral Anxiety Surgical History Status post cholecystectomy History of laparoscopic cholecystectomy H/O tubal ligation Hx of section Family History Mother Diabetes Hypertension Substance use disorder Mental health disorder Cervical cancer Maternal Grandmother History of breast cancer Social History Housing: Apartment Alcohol intake: current Alcohol intake frequency: a few times a month Patient Tobacco Use Status: Current everyday Tobacco user Tobacco use type: Cigarette Cigarettes Per Day: 10 e-Cigarette/Vaping Use: Never Used Current occupational status: unemployed 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 Good respiratory effort Skin: Flat Malar erythema, erythema around eyebrows, forehead and chin extending to anterior neck MSK: No tenderness of any joints. No synovitis. Normal range of motion of upper extremity. She has limited external rotation of bilateral hips. She has good lumbar flexion. Tender to palpate lower lumbar spinous. Negative straight leg raising test. Assessment & Plan Assessment & Plan (1) Chronic low back pain: Comment: With 1 month history of right leg going numb. 01/2024 lumbar spine x-ray reveals anterolisthesis L4-L5. Images were personally reviewed with patient. I am concerned she has nerve impingement contributing to her symptoms. I have ordered a follow-up x-ray to evaluate for progression of arthritis contributing to her symptoms. Code(s): M54.50 - Low back pain, unspecified; G89.29 - Other chronic pain Category: Medical Plan: X-ray L-spine ordered PT ordered Return to clinic in 3 months (2) Acute cutaneous lupus erythematosus: Comment: Exacerbated off of hydroxychloroquine. She does not have any signs or symptoms suggestive of systemic lupus erythematosus. Neg BEE, anti-DNA, SHARA started around 2013 dx around 2021 HCQ 07/2022- Code(s): L93.1 - Subacute cutaneous lupus erythematosus Category: Medical Plan: I have prescribed hydrocortisone valerate 0.2% prescribed in [address] Malou Loyola for disease and drug monitoring on high-risk medication ordered. I have lab results are back, we will send prescription for hydroxychloroquine 400 mg daily I am requesting baseline eye exam for hydroxychloroquine that she had done in 2021 Return to clinic in 3 months (3) Other roasterman (current) drug therapy: Code(s): Z79.899 - Other intermediate (current) drug therapy Category: Medical Plan: See above Orders: Orders BEE Reflex Titer and Pattern Today L93.1 - Subacute cutaneous lupus erythematosus C Reactive Protein Today L93.1 - Subacute cutaneous lupus erythematosus Erythrocyte Sedimentation Rate Today L93.1 - Subacute cutaneous lupus erythematosus UA w Microscopic Today L93.1 - Subacute cutaneous lupus erythematosus Alanine Aminotransferase Today Z79.60 - penitentiary (current) use of unspecified immunomodulators and immunosuppressants Aspartate Amino Transferase Today Z79.60 - penitentiary (current) use of unspecified immunomodulators and immunosuppressants Hepatitis B,C Profile Today Z79.899 - Other roasterman (current) drug therapy T Spot TB Today Z79.899 - Other intermediate (current) drug therapy Sm Sm/ULTIMATE 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 Antibodies Today L93.1 - Subacute cutaneous lupus erythematosus Anti DNA DS Antibody Today L93.1 - Subacute cutaneous lupus erythematosus Complement C3 Today L93.1 - Subacute cutaneous lupus erythematosus Complement C4 Today L93.1 - Subacute cutaneous lupus erythematosus Protein Creatinine Ratio, Ur Today L93.1 - Subacute cutaneous lupus erythematosus Complete Blood Count Auto Diff Today Z79.60 - oil heaterman (current) use of unspecified immunomodulators and immunosuppressants Creatinine Today Z79.60 - penitentiary (current) use of unspecified immunomodulators and immunosuppressants XR lumbar spine 2-3V Today G89.29 - Other chronic pain, M54.50 - Low back pain, unspecified PT Evaluation and Treatment Today G89.29 - Other chronic pain, M54.50 - Low back pain, unspecified Medications: New hydrocortisone valerate 0.2% 1 appl topical TID 60 grams 1RF Coding Level of Care Code Est Pt Level 5 (21929) Complex EM visit Add On G2211 Diagnoses Chronic low back pain M54.50; G89.29 Acute cutaneous lupus erythematosus L93.1 Other roasterman (current) drug therapy Z79.899 Time Spent (min) 45
[2024-10-13 08:02] VITALS: BP 140/100; PULSE 68; O2SAT 100; BMI 49.0
== END 2024-10-13 08:46 | disposition home or self-care (01) ==
PROVIDERS: PCP Nurse Practitioner Family; Visit Provider Internal Medicine Rheumatology
DX: M54.50 Low back pain, unspecified (principal); G89.29 Other chronic pain; L93.1 Subacute cutaneous lupus erythematosus; Z79.899 Other long term (current) drug therapy
CPT/HCPCS: 99215; G2211

== ENCOUNTER 2024-10-16 17:47 | Emergency (ER) | payer OTHER, SELFPAY ==
--- NOTE | ~2024-10-16 | XR_ITS ---
CLINICAL HISTORY: sob 2 view chest x-ray Comparison: CR/SR - XR CHEST 2V - 02/11/23 01:18 EDT Findings: No consolidation or effusion. Normal size heart. No acute fracture. IMPRESSION: 1. No acute findings. This document has been electronically signed by: Bharat Jarvis MD on 10/16/2024 18:51:09
[2024-10-16 18:13] VITALS: BP 159/107; PULSE 107; RESP 20; TEMP 37.1; O2SAT 98; BMI 49.8
--- NOTE | 2024-10-16 18:14 | ED.URI ---
HPI - URI/Sore Throat General Chief Complaint: Upper Respiratory Symptoms Stated Complaint: flu like symptoms/sob Time Seen by Provider: 10/16/24 18:55 Source: patient, RN notes reviewed and old records reviewed Mode of arrival: ambulatory Limitations: no limitations History of Present Illness ED Provider: Emil WILBURN Narrative: 39-year-old female with past medical history significant for lupus maintained on hydroxychloroquine presents for evaluation of cough, congestion. She reports that she has been sick for the last 3 days She complains of bilateral ear pain. She reports congestion, cough and facial pressure She reports that there was a flu outbreak at work Denies any chest pain Related Data Previous Rx's ?Medication ?Instructions ?Recorded ibuprofen 600 mg tablet 600 mg PO BID PRN pain #60 tabs 10/08/23 lidocaine 5 % topical patch 1 patch topical DAILY #15 ea 10/30/23 (Lidoderm) cyclobenzaprine 10 mg tablet 10 mg PO TID PRN muscle spasm #14 01/10/24 tabs lidocaine 5 % topical patch 1 patch topical DAILY #15 ea 01/10/24 (Lidoderm) trazodone 50 mg tablet 50 mg PO BEDTIME PRN sleep 90 days 03/01/24 #90 tabs hydroxychloroquine 200 mg tablet 200 mg PO BID #180 tabs 05/09/24 hydrocortisone valerate 0.2 % 1 appl topical TID #60 grams 10/13/24 topical cream azithromycin 250 mg tablet See Rx Instructions PO .COMPLEX #6 10/16/24 tabs Allergies Allergy/AdvReac Type Severity Reaction Status Date / Time Nickel Allergy Unknown hives Uncoded 10/16/24 18:15 Review of Systems Constitutional: Constitutional: Reports body ache(s), Reports chills, Denies fever(s) and Reports headache(s) ENT: Denies ear discharge, Reports otalgia, Reports headache(s) and Denies sore throat Cardiovascular: Cardiovascular: Denies chest pain and Denies dyspnea Respiratory: Respiratory: Reports cough and Denies dyspnea Gastrointestinal: Gastrointestinal: Denies abdominal pain, Denies nausea and Denies vomiting Musculoskeletal: Musculoskeletal: Denies back pain Integumentary/Breasts: Skin/Breast: Denies rash Neurologic: Reports headache(s) [facility] Past Medical History Medical History Morbid obesity Lupus Cervical cancer screening Systolic murmur Hidradenitis suppurativa Substance abuse Depression Carpal tunnel syndrome, bilateral Anxiety Surgical History Status post cholecystectomy History of laparoscopic cholecystectomy H/O tubal ligation Hx of section Family History Family History Mother Diabetes Hypertension Substance use disorder Mental health disorder Cervical cancer Maternal Grandmother History of breast cancer Social History Social History Housing: Apartment Alcohol intake: current Alcohol intake frequency: a few times a month Patient Tobacco Use Status: Current everyday Tobacco user Tobacco use type: Cigarette Cigarettes Per Day: 10 Smoked in Last 30 Days: No e-Cigarette/Vaping Use: Never Used Use of substances other than those prescribed or required for medical reasons: No Advance Directives: No Advance Directives Information Provided: Yes Patient : No Current occupational status: unemployed 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 Current occupational exposures/hazards: Yes Gender identity: Female Cognitive needs: No Hearing needs: No Vision needs: No Physical Exam Vital Signs: Vital Signs: Last Vital Signs Temp 97.4 F 10/16/24 20:16 Pulse 92 10/16/24 20:16 Resp 18 10/16/24 20:16 BP 144/93 H 10/16/24 20:16 Pulse Ox 98 10/16/24 20:16 O2 Del Method Room Air 10/16/24 20:16 BMI result Body Mass Index 49.8 Const: General: healthy appearing, comfortable, no acute distress, alert and awake Nutritional Appearance: well nourished Orientation/consciousness: patient oriented x3 HEENT: Head: Yes normocephalic and Yes atraumatic Ears: external ears normal, TM's normal bilaterally and EAC's normal Eyes: Eyelids: Yes eyelids normal Conjunctivae: conjunctivae normal Sclerae: sclerae normal Corneas: corneas normal Pupils: Equal, round and reactive pupils present EOM: EOMs intact bilaterally Neck: Neck: Yes full ROM Resp: Effort & Inspection: normal respiratory effort, able to speak in complete sentences, no audible wheezes and not labored Auscultation: clear to auscultation bilaterally Cardio: Rate: regular rate Rhythm: regular rhythm Neuro: General: patient oriented x3 Cranial nerves: Yes Equal, round and reactive pupils present and Yes Bilaterally intact EOM present Cognition (Neuro): normal cognition Course Course Course Narrative: This is a Rapid Medical Examination (RME) performed by Elio Youngblood PA-C in triage. Full HPI, ROS, assessment and treatment plan per primary provider in the Main ED. 39 yo female with history of obesity, fibromyalgia, anxiety/depression, who presents to the ER for evaluation of sore thoat, ear pain, cough, chest tightness and congestion for the last 4 days. there has been a Flu outbreak at [employer] in [place] where she works. Plan: CXR, viral swab, strep swab Medical Decision Making Medical Decision Making MDM Narrative: 39-year-old female with past medical history as above presents for evaluation of upper respiratory symptoms. Her chest x-ray was clear, she was not have any viral swabs were negative despite her positive sick contact. We will treat with azithromycin for upper respiratory infection Differential Diagnosis Differential Diagnoses: The differential diagnosis associated with the presentation includes Acute upper respiratory infection Bronchitis Pneumonia Influenza Lab Data Labs: Lab Results 10/16/24 Range/Units 18:43 Influenza Type A (PCR) NEGATIVE (Negative) Influenza Type B (PCR) NEGATIVE (Negative) RSV RNA Qual (PCR) NEGATIVE (Negative) SARS-CoV-2 RNA (RT-PCR) NEGATIVE (Negative) S. pyogenes GrpA KATHARINE Negative (Negative) Independent Interpretation I performed an independent interpretation of an: Plain X-Ray Interpretation: No infiltrate Radiology Impression Discussion of test interpretation with radiology: I have reviewed the radiologist's reading. Radiologist Impression: Findings: No consolidation or effusion. Normal size heart. No acute fracture. IMPRESSION: 1. No acute findings. This document has been electronically signed by: Bharat Jarvis MD on 10/16/2024 18:51:09 Discharge Plan Discharge Clinical Impression: Acute upper respiratory infection Patient Disposition: Home, Self-Care Instructions: Upper Respiratory Infection (ED) Additional Instructions: Take the azithromycin as prescribed I recommend that you use an [id number] decongestant Follow-up with your primary doctor, return for new or worsening symptoms Prescriptions: New azithromycin 250 mg tablet See Rx Instructions .ROUTE .COMPLEX Qty: 6 0RF Rx Instructions: For 250 mg dose pack: take 500 mg today (day 1), then 250 mg for 4 days (days 2-5) No Action trazodone 50 mg tablet 50 mg PO BEDTIME PRN (Reason: sleep) 90 Days Qty: 90 0RF hydroxychloroquine 200 mg tablet 200 mg PO BID Qty: 180 0RF lidocaine [Lidoderm] 5 % adhesive patch,medicated 1 patch topical DAILY Qty: 15 0RF Rx Instructions: leave on most painful area for up to 12 hrs cyclobenzaprine 10 mg tablet 10 mg PO TID PRN (Reason: muscle spasm) Qty: 14 0RF lidocaine [Lidoderm] 5 % adhesive patch,medicated 1 patch topical DAILY Qty: 15 0RF Rx Instructions: leave on most painful area for up to 12 hrs ibuprofen 600 mg tablet 600 mg PO BID PRN (Reason: pain) Qty: 60 2RF hydrocortisone valerate 0.2 % cream 1 appl topical TID Qty: 60 1RF Stand Alone Forms: Work/School Release Interventions: ED Discharge Assessment Last Done: 10/16/24 20:16 Discharge Date/Time: 10/16/24 20:25 Print Language: Kazakh
[2024-10-16 18:42] VITALS: O2SAT 99
[2024-10-16 18:57] LABS: IDNOW Serial# 58CA691E; Strep A Nucleic Acid Negative (Negative)
[2024-10-16 19:28] LABS: Influenza A PCR NEGATIVE (Negative); Influenza B PCR NEGATIVE (Negative); Resp Syncy Virus RNA Qual PCR NEGATIVE (Negative); SARS COV2 PCR INHOUSE NEGATIVE (Negative)
[2024-10-16 20:05] VITALS: BP 144/93; PULSE 92; RESP 18; TEMP 36.3; O2SAT 98
[2024-10-16 20:16] VITALS: BP 144/93; PULSE 92; RESP 18; TEMP 36.3; O2SAT 98
== END 2024-10-16 20:25 | disposition home or self-care (01) ==
PROVIDERS: Physician Assistant; Emergency Provider Emergency Medicine; PCP Nurse Practitioner Family
DX: J06.9 Acute upper respiratory infection, unspecified (principal); R05.9 Cough, unspecified; J02.9 Acute pharyngitis, unspecified; Z03.818 Encounter for observation for suspected exposure to other biological agents ruled out
CPT/HCPCS: 0241U; 71046; 87651; 99283; 99284

== ENCOUNTER → 2024-10-16 17:50 | Outpatient (BNV) | payer OTHER, SELFPAY | PROVIDERS: PCP Nurse Practitioner Family; Visit Provider Radiology Diagnostic Radiology | DX: R06.02 Shortness of breath (principal) | CPT/HCPCS: 71046 ==

== ENCOUNTER 2025-01-11 09:12 | Outpatient (AMB) | payer OTHER, SELFPAY ==
--- NOTE | 2025-01-11 09:19 | A.OFFVIS_ITS ---
Vital Signs 01/11/25 09:20 Height 5 ft 4 in Weight 286 lb 8 oz BMI 49.2 BP 136/78 Blood Pressure Location Lt brachial Position Sitting Pulse 85 Pulse Source Pulse Oximeter Pulse Oximetry (%) 98 Oxygen Delivery Method Room Air Intake Visit Reasons: 3 months Intake Note: Patient presents today with Acute cutaneous lupus erythematosus.? Allergies Nickel Allergy (Unknown, Uncoded 01/11/25 09:23) hives HPI HPI 3 months: Details: She is experiencing photosensitivity right arm when driving to work. She tries to avoid the sun. She had exacerbation of facial rash that she tried to treat with topical steroid. She is compliant with hydroxychloroquine. Denies any new symptoms. She started a new job and has been experiencing less back pain. She has intermittent leg numbness but the frequency has decreased. Back pain with radiculopathy was aggravated with prolonged lying down such as when she spent most of her time in her bedroom prior to her new job. [facility] Medical History Morbid obesity Lupus Cervical cancer screening Systolic murmur Hidradenitis suppurativa Substance abuse Depression Carpal tunnel syndrome, bilateral Anxiety Surgical History Status post cholecystectomy History of laparoscopic cholecystectomy H/O tubal ligation Hx of section Family History Mother Diabetes Hypertension Substance use disorder Mental health disorder Cervical cancer Maternal Grandmother History of breast cancer Social History Housing: Apartment Alcohol intake: current Alcohol intake frequency: a few times a month Patient Tobacco Use Status: Current everyday Tobacco user Tobacco use type: Cigarette Cigarettes Per Day: 10 e-Cigarette/Vaping Use: Never Used Current occupational status: unemployed 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 Good respiratory effort Skin: Flat Malar erythema, erythema around eyebrows, forehead and chin extending to anterior neck MSK: No tenderness of any joints. No synovitis. Normal range of motion of upper extremity. Assessment & Plan Assessment & Plan (1) Acute cutaneous lupus erythematosus: Comment: Uncontrolled. Exacerbated off of hydroxychloroquine. She does not have any signs or symptoms suggestive of systemic lupus erythematosus. Labs to assess serological activity from lupus are unremarkable. Rheumatology history: Neg BEE, anti-DNA, SHARA started around 2013. dx around 2021. HCQ 07/2022- Code(s): L93.1 - Subacute cutaneous lupus erythematosus Category: Medical Plan: Prednisone course prescribed Hold hydrocortisone valerate 0.2% b.i.d. Labs for drug monitoring on high-risk medication ordered. Continue hydroxychloroquine 400 mg daily. Eye exam scheduled for April 2025. Baseline eye exam for hydroxychloroquine 2021 ok. Return to clinic in 3 months (2) Chronic low back pain: Comment: With associated intermittent right leg numbness. 01/2024 lumbar spine x-ray reveals anterolisthesis L4-L5. Pain is improved with activity. She defered PT at this time and considered in the future if frequency of pain increases. 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: Code(s): Z79.899 - Other detention (current) drug therapy Category: Medical Plan: See above Orders: Orders Alanine Aminotransferase Today Z79.899 - Other detention (current) drug therapy Aspartate Amino Transferase Today Z79.899 - Other detention (current) drug therapy C Reactive Protein Today Z79.899 - Other termite renewal inspector (current) drug therapy Complete Blood Count Man Dif Today Z79.899 - Other termite renewal inspector (current) drug therapy Creatinine Today Z79.899 - Other termite renewal inspector (current) drug therapy Erythrocyte Sedimentation Rate Today Z79.899 - Other detention (current) drug therapy Medications: New prednisone Take 4 tablet daily 7 days, 3 tablet daily 7 days, 2 tablet daily 7 days, 1 tablet daily 7 days. Take prednisone with food. 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
[2025-01-11 09:20] VITALS: BP 136/78; PULSE 85; O2SAT 98; BMI 49.2
== END 2025-01-11 10:05 | disposition home or self-care (01) ==
LOC: HO.RHES 09:13
PROVIDERS: PCP Nurse Practitioner Family; Visit Provider Internal Medicine Rheumatology
DX: L93.1 Subacute cutaneous lupus erythematosus (principal); M54.41 Lumbago with sciatica, right side; G89.29 Other chronic pain; Z79.899 Other long term (current) drug therapy
CPT/HCPCS: 99214; G2211

== ENCOUNTER → 2025-01-11 09:12 | Outpatient (BNVA) | payer OTHER, SELFPAY | PROVIDERS: PCP Nurse Practitioner Family; Visit Provider Internal Medicine Rheumatology | DX: L93.1 Subacute cutaneous lupus erythematosus (principal); Z79.899 Other long term (current) drug therapy; M54.41 Lumbago with sciatica, right side; G89.29 Other chronic pain | CPT/HCPCS: 99212 ==

== ENCOUNTER 2025-02-23 10:24 | Outpatient (REF) | payer OTHER, SELFPAY ==
[2025-02-23 11:08] LABS: Baso%MD 0.3 %; Eos%MD 0.7 %; Hematocrit 42.3 % (37.0-47.0); Hemoglobin 13.8 g/dl (12.0-16.0); IG%MD 0.1 %; Lymph%MD 30.3 %; Mean Corpuscular HGB Conc 32.6 g/dl (31.0-35.0); Mean Corpuscular Hemoglobin 25.9 pg (27.0-33.0); Mean Corpuscular Volume 79.4 fL (80.0-98.0); Mono%MD 7.5 %; NRBC Abs Auto 0.000 X10*3/uL (0.0-0.012); NRBC Pct Auto 0.0 /100WBC (0.0-0.2); Neut%MD 61.1 %; Platelet Count 268 X10*3/uL (160-400); Red Blood Count 5.33 X10*6/uL (4.20-5.50); White Blood Count 7.0 X10*3/uL (4.8-10.8)
[2025-02-23 11:39] LABS: Alanine Aminotransferase 26 U/L (0-31); Aspartate Amino Transferase 26 U/L (5-31); Estimated Glomerular Filt Rate > 60
[2025-02-23 12:01] LABS: Band Neutrophils Percent 1 % (3-5); HBS Num1 268.08 mIU/mL (0-7.99); HBc Num1 0.04 S/CO (0.00-0.79); HBsAGNum1 0.37 S/CO (0.00-0.99); Hepatitis B Surface Antigen Negative (Negative); Lymphocytes Absolute Manual 1.8 X10*3/uL (1.2-4.9); Lymphocytes Percent Manual 25 % (20-40); Monocytes Absolute Manual 0.6 X10*3/uL (0.1-1.2); Monocytes Percent Manual 8 % (2-11); Neutrophils Absolute Manual 4.7 X10*3/uL (2.0-8.3); Neutrophils Percent Manual 66 % (45-73); ~Hepatitis B Surface Antibody REACTIVE (Nonreactive)
[2025-02-23 12:02] LABS: RBC Morphology NORMAL
[2025-02-23 13:06] LABS: ~HepC Num1 0.09 S/CO (0.00-0.79); ~Hepatitis C Antibody Nonreactive (Nonreactive)
[2025-02-25 22:09] LABS: TS Negative Control Passed; TS Panel A 0; TS Panel B 2; TS Positive Control Passed; TSpotTB Negative (Negative)
== END 2025-02-23 10:25 | disposition home or self-care (01) ==
LOC: HO.LAB 10:24
PROVIDERS: PCP Nurse Practitioner Family; Visit Provider Internal Medicine Rheumatology
DX: Z11.1 Encounter for screening for respiratory tuberculosis (principal); Z79.899 Other long term (current) drug therapy
CPT/HCPCS: 36415; 82565; 84450; 84460; 85007; 85027; 85652; 86140; 86481; 86704; 86706; 86803; 87340

== ENCOUNTER 2025-04-20 10:14 | Outpatient (AMB) | payer OTHER, SELFPAY ==
[2025-04-20 10:18] VITALS: BP 120/80; PULSE 96; O2SAT 99; BMI 49.9
--- NOTE | 2025-04-20 10:18 | MHC.OFFVIS ---
Vital Signs 04/20/25 10:18 Height 5 ft 4 in Weight 291 lb 0.163 oz BMI 49.9 BP 120/80 Blood Pressure Location Rt brachial Position Sitting Pulse 96 Pulse Source Pulse Oximeter Pulse Oximetry (%) 99 Oxygen Delivery Method Room Air Intake Visit Reasons: 3 months Intake Note: Patient presents today with Acute cutaneous lupus erythematosus.? Accompanied by: Spouse Allergies Nickel Allergy (Unknown, Uncoded 01/11/25 09:23) hives HPI HPI 3 months: Details: She had recurrence of facial rash with prednisone. No new rash. She increased SPF from 50-70. She has more redness on her left arm due to sun exposure when driving. She is not sleeping well. She works 2nd shift and is up until 3 in the morning. She gets at least 5 hours of sleep. She has fatigue. Denies fevers, dyspnea, pleurisy, oral ulcers, sicca symptoms, urinary symptoms, joint pain or swelling. She has intermittent right leg radicular symptoms. [facility] Medical History Morbid obesity Lupus Cervical cancer screening Systolic murmur Hidradenitis suppurativa Substance abuse Depression Carpal tunnel syndrome, bilateral Anxiety Surgical History Status post cholecystectomy History of laparoscopic cholecystectomy H/O tubal ligation Hx of section Family History Mother Diabetes Hypertension Substance use disorder Mental health disorder Cervical cancer Maternal Grandmother History of breast cancer Social History Housing: Apartment Alcohol intake: current Alcohol intake frequency: a few times a month Patient Tobacco Use Status: Current everyday Tobacco user Tobacco use type: Cigarette Cigarettes Per Day: 10 e-Cigarette/Vaping Use: Never Used Current occupational status: unemployed 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 Good respiratory effort Skin: Flat Malar erythema, erythema around eyebrows, forehead and chin extending to anterior neck MSK: No tenderness of any joints. No synovitis. Normal range of motion of upper extremity. Assessment & Plan Assessment & Plan (1) Acute cutaneous lupus erythematosus: Comment: Chronic cutaneous lupus has not improved with being back on hydroxychloroquine. Initially exacerbated with being off of hydroxychloroquine. Exacerbated off of hydroxychloroquine. Prednisone prescribed twice since last visit, which relieves pruritus and burning but does not resolve the rash. We discussed next steps in treatment with adjunct therapy with methotrexate. Discussed side effects, benefits and drug monitoring. Rheumatology history: Neg BEE, anti-DNA, SHARA started around 2013. dx around 2021. HC 07/2022- Code(s): L93.1 - Subacute cutaneous lupus erythematosus Category: Medical Plan: Labs for drug monitoring on high-risk medication ordered. Continue hydroxychloroquine 400 mg daily. Eye exam scheduled for April 2025. Baseline eye exam for hydroxychloroquine 2021 OCT ok. She will try to set up eye exam for visual field testing with a new ophthalmology office. She no showed to her April visit and was discharged from [facility] in [place]. After lab results are back, we will send prescription for methotrexate 12.5 mg once weekly and folic acid 1 mg daily. She will need labs 4 weeks after starting methotrexate with CBC, creatinine, AST and ALT Return to clinic in 3 months or sooner if needed (2) Chronic low back pain: Comment: With associated intermittent right leg numbness. 01/2024 lumbar spine x-ray reveals anterolisthesis L4-L5. Pain is improved with activity. Code(s): M54.50 - Low back pain, unspecified; G89.29 - Other chronic pain Category: Medical Qualifiers: Back pain laterality: midline Sciatica laterality: sciatica of right side Sciatica presence: with sciatica Qualified Code(s): M54.41 - Lumbago with sciatica, right side; G89.29 - Other chronic pain Plan: PT ordered Return to clinic in 3 months (3) Other retirement (current) drug therapy: Code(s): Z. - Other intermediate frame tender (current) drug therapy Category: Medical Plan: See above Orders: Orders Complete Blood Count Auto Diff Today Z. - Other retirement (current) drug therapy Alanine Aminotransferase Today Z79. - Other intermediate frame tender (current) drug therapy C Reactive Protein Today Z79. - Other retirement (current) drug therapy Erythrocyte Sedimentation Rate Today Z79. - Other retirement (current) drug therapy Aspartate Amino Transferase Today Z. - Other intermediate frame tender (current) drug therapy Creatinine Today Z79. - Other intermediate frame tender (current) drug therapy Coding Level of Care Code Est Pt Level 4 (62683) Complex EM visit Add On G2211 Diagnoses Acute cutaneous lupus erythematosus L93.1 Chronic midline low back pain with right-sided sciatica M54.41; G89.29 Back pain laterality: midline Sciatica laterality: sciatica of right side Sciatica presence: with sciatica Other intermediate frame tender (current) drug therapy Z79
== END 2025-04-20 11:10 | disposition home or self-care (01) ==
LOC: HO.RHES 10:14
PROVIDERS: PCP Nurse Practitioner Family; Visit Provider Internal Medicine Rheumatology
DX: L93.1 Subacute cutaneous lupus erythematosus (principal); M54.41 Lumbago with sciatica, right side; G89.29 Other chronic pain; Z79.899 Other long term (current) drug therapy
CPT/HCPCS: 99214

== ENCOUNTER → 2025-04-20 10:14 | Outpatient (BNVA) | payer OTHER, SELFPAY | PROVIDERS: PCP Nurse Practitioner Family; Visit Provider Internal Medicine Rheumatology | DX: L93.1 Subacute cutaneous lupus erythematosus (principal); M54.41 Lumbago with sciatica, right side; G89.29 Other chronic pain; Z79.899 Other long term (current) drug therapy | CPT/HCPCS: 99212 ==

== ENCOUNTER 2025-07-29 22:34 | Emergency (ER) | payer OTHER, SELFPAY ==
--- NOTE | 2025-07-29 | ECG_ITS ---
Test Reason : chest pain, tachycardia Blood Pressure : */* mmHG Vent. Rate : 119 BPM Atrial Rate : 119 BPM P-R Int : 140 ms QRS Dur : 80 ms QT Int : 320 ms P-R-T Axes : 67 17 62 degrees QTcB Int : 450 ms Sinus tachycardia Otherwise normal ECG When compared with ECG of 10-Feb-2023 23:01, No significant change was found Referred By: Generic ED Physician Electronically Signed By: MIRIAM MEJIA MD
[2025-07-29 22:45] VITALS: BP 188/91; PULSE 136; RESP 22; TEMP 37.9; O2SAT 94; BMI 51.0
[2025-07-29 23:11] LABS: Hematocrit 43.5 % (37.0-47.0); Hemoglobin 14.2 g/dl (12.0-16.0); Imm Gran Abs Auto 0.03 X10*3/uL (0.00-0.03); Imm Gran Pct Auto 0.4 % (0.0-0.4); Lymphocytes Absolute Auto 0.4 X10*3/uL (1.2-4.9); MANUAL DIFF FLAG NO; Mean Corpuscular HGB Conc 32.6 g/dl (31.0-35.0); Mean Corpuscular Hemoglobin 26.2 pg (27.0-33.0); Mean Corpuscular Volume 80.1 fL (80.0-98.0); NRBC Abs Auto 0.000 X10*3/uL (0.0-0.012); NRBC Pct Auto 0.0 /100WBC (0.0-0.2); Platelet Count 217 X10*3/uL (160-400); Red Blood Count 5.43 X10*6/uL (4.20-5.50); White Blood Count 7.3 X10*3/uL (4.8-10.8)
[2025-07-29 23:29] LABS: Alanine Aminotransferase 86 U/L (0-31); Albumin Level 4.5 g/dL (3.5-5.0); Alkaline Phosphatase 95 U/L (39-117); Anion Gap 13 (12-20); Aspartate Amino Transferase 132 U/L (5-31); Blood Urea Nitrogen 9 mg/dL (9-16); Calcium 9.9 mg/dL (8.4-10.2); Carbon Dioxide 26 mmol/L (22-29); Chloride 99 mmol/L (96-108); Creatinine Clr Calc Pharmacy 145.6; Estimated Glomerular Filt Rate > 60; Magnesium 1.6 mg/dL (1.6-2.6); Potassium 3.8 mmol/L (3.3-5.1); Sodium 134 mmol/L (135-145); Total Protein 7.4 g/dL (6.5-8.0)
[2025-07-29 23:36] LABS: Troponin-I High Sensitivity 6.2 ng/L (<3.5-17.0)
[2025-07-29 23:47] LABS: Resp Syncy Virus RNA Qual PCR NEGATIVE (Negative); SARS COV2 PCR INHOUSE NEGATIVE (Negative)
--- NOTE | 2025-07-30 02:03 | ED_ITS ---
HPI - URI/Sore Throat General Chief Complaint: Upper Respiratory Symptoms Stated Complaint: SOB, chest burning, flu like symptoms Time Seen by Provider: 07/30/25 00:57 Source: patient Mode of arrival: ambulatory Limitations: no limitations History of Present Illness ED Provider: Dr. Hattie Orantes HPI Narrative: 40 year old female with history of liver disease presenting to the emergency department with abrupt onset of diffuse body aches, crampy pain, cough, vomiting, headache, and diarrhea that began the prior evening. The patient feels feverish and reports that Motrin taken at ~1630 did not provide relief; Tylenol was given on arrival. Patient reports not having a thermometer at home and did not take their temperature today for this reason. Possible sick contact: niece (infant) who ?hasn?t been doing so good? and may have influenza. The patient has not received a flu vaccine this year (never has in the past). Noted episodes of hyperventilation with associated hand muscle spasms; history of carpal tunnel syndrome. No other exposures or sick contacts identified. Related Data Previous Rx's ?Medication ?Instructions ?Recorded ibuprofen 600 mg tablet 600 mg PO BID PRN pain #60 t abs 10/08/23 lidocaine 5 % topical patch 1 patch topical DAILY #15 ea 10/30/23 (Lidoderm) cyclobenzaprine 10 mg tablet 10 mg PO TID PRN muscle s pasm #14 01/10/24 tabs lidocaine 5 % topical patch 1 patch topical DAILY #15 ea 01/10/24 (Lidoderm) trazodone 50 mg tablet 50 mg PO BEDTIME PRN sleep 9 0 days 03/01/24 #90 tabs hydrocortisone valerate 0.2 % 1 appl topical TID #60 g jelena 10/13/24 topical cream azithromycin 250 mg tablet See Rx Instructions PO .COM PLEX #6 10/16/24 tabs hydroxychloroquine 200 mg tablet 400 mg (2 x 200 mg) P O DAILY 90 10/20/24 days #180 tabs prednisone 5 mg tablet 5 mg PO DIRECTED #70 tabs 02/28/25 albuterol sulfate 90 mcg/actuation 2 inh inhalation Q4 H PRN shortness 07/30/25 breath activated powder inhaler of breath #1 ea ondansetron 4 mg disintegrating 4 mg PO Q8H PRN nausea and 07/30/25 tablet vomiting #10 tabs oseltamivir 75 mg capsule (Tamiflu) 75 mg PO BID 5 day s #10 caps 07/30/25 Allergies Allergy/AdvReac Type Severity Reaction Status Date / Time Nickel Allergy Unknown hives Uncoded 07/29/25 22:48 Review of Systems 2 Review of Systems: as per HPI, full review of systems performed and negative but for the above mentioned pertinent positives and negatives. PMFSH Past Medical History Medical History Morbid obesity Lupus Cervical cancer screening Systolic murmur Hidradenitis suppurativa Substance abuse Depression Carpal tunnel syndrome, bilateral Anxiety Surgical History Status post cholecystectomy History of laparoscopic cholecystectomy H/O tubal ligation Hx of section Family History Family History Mother Diabetes Hypertension Substance use disorder Mental health disorder Cervical cancer Maternal Grandmother History of breast cancer Social History Social History Housing: Apartment Alcohol intake: current Alcohol intake frequency: a few times a month Patient Tobacco Use Status: Current everyday Tobacco user Tobacco use type: Cigarette Cigarettes Per Day: 10 e-Cigarette/Vaping Use: Never Used Advance Directives: No Advance Directives Information Provided: Yes Current occupational status: unemployed 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 SKIN: Normal skin color for ethnicity, warm, dry, no rashes noted. HEENT:? Normocephalic, atraumatic, no stridor, dry mucous membranes, dentition intact, EOMI. NECK: Soft, supple, full ROM, midline structures nontender, no step-offs, no deformities, no lymphadenopathy. CHEST: Heart regular tachycardia, no murmurs, symmetric chest rise and fall. PULMONARY: Clear to auscultation bilaterally, diminished at the bases, no labored breathing, no wheezes/rhales/rhonchi. ABDOMINAL: Soft, nondistended, nontender, positive bowel sounds in all quadrants. : Deferred. MUSCULOSKELETAL: Normal tone, full range of motion, no deformities, no peripheral edema. NEURO: Alert and oriented x3, CN II through XII intact, equal strength and sensation bilateral upper and lower extremities, no focal neurologic deficits.? PSYCHIATRIC: Flat affect, fluid speech, good eye contact and appropriate demeanor. Vital Signs: Vital Signs: Last Vital Signs Temp 100.3 F 07/30/25 02:18 Pulse 136 H 07/30/25 02:18 Resp 22 H 07/30/25 02:18 BP 188/91 H 07/30/25 02:18 Pulse Ox 94 07/30/25 02:18 O2 Del Method Room Air 07/30/25 02:18 BMI result Body Mass Index 51.0 Medications Administered Discontinued Medications Generic Name Dose Route Start Last Admin Trade Name Freq PRN Reason Stop Dose Admin Acetaminophen 975 mg 07/29/25 22:52 07/29/25 23:06 Acetaminophen 325 Mg Tablet PO 07/29/25 22:53 975 mg ONCE ONE Administration Ibuprofen 600 mg 07/30/25 02:00 07/30/25 02:13 Ibuprofen 600 Mg Tablet PO 07/30/25 02:01 600 mg ONCE ONE Administration Ondansetron HCl 4 mg 07/30/25 02:00 07/30/25 02:13 Ondansetron Odt 4 Mg Tab.Rapdis TRANSLINGU 07/30/25 02:01 4 mg ONCE ONE Administration Oseltamivir Phosphate 75 mg 07/30/25 02:00 07/30/25 02:13 Oseltamivir Phosphate 75 Mg Capsule PO 07/30/25 02:01 75 mg ONCE ONE Administration Medical Decision Making Medical Decision Making MDM Narrative: Emergency Department Course Tylenol administered on arrival for fever/pain. First dose of oseltamivir (Tamiflu) given in the ED. Counseling provided on breathing techniques to slow respirations and reduce muscle spasms. Education given regarding hydration, alternating Motrin and Tylenol for fever/body aches, use of OTC decongestant (e.g., Mucinex) for secretions, infection control measures (masking, hand hygiene), and expected medication side effects (possible nausea, vomiting, diarrhea). Assessment & Plan Diagnosis: Influenza A Plan: * Oseltamivir: first dose administered in ED; patient instructed to take twice daily with next dose at 2 PM today; prescription sent to [facility] on [address]. * Antipyretics/analgesics: Continue Motrin and Tylenol around the clock for fever and body aches. * Symptomatic relief: Recommend OTC decongestant (Mucinex) for respiratory secretions. * Hydration & rest: Encourage liberal oral fluids and adequate rest. * Infection control: Wear a mask in public and practice frequent hand washing to reduce transmission. * Return precautions: Patient advised to return to the emergency department if symptoms worsen or no improvement. Disposition Discharged home with verbal instructions and prescriptions as above. Differential Diagnosis Differential diagnosis includes influenza, coronavirus, pneumonia, upper respiratory infection, among others. Lab Data MDM Lab Attestation statement: I reviewed the patient's lab results. 07/29/25 23:05 07/29/25 23:05 Labs: Lab Results 07/29/25 Range/Units 23:05 WBC 7.3 (4.8-10.8) X10*3/uL RBC 5.43 (4.20-5.50) X10*6/uL Hgb 14.2 (12.0-16.0) g/dl Hct 43.5 (37.0-47.0) % MCV 80.1 (80.0-98.0) fL MCH 26.2 L (27.0-33.0) pg MCHC 32.6 (31.0-35.0) g/dl RDW 14.2 (11.0-16.0) % Plt Count 217 (160-400) X10*3/uL MPV 9.0 L (9.4-12.3) fL Immature Gran % (Auto) 0.4 (0.0-0.4) % Neut % (Auto) 83.9 H (45-73) % Lymph % (Auto) 5.6 L (20-40) % Republic % (Auto) 10.0 (2-11) % Eos % (Auto) 0.0 (0-4) % Baso % (Auto) 0.1 (0-2) % Lymph # (Auto) 0.4 L (1.2-4.9) X10*3/uL Republic # (Auto) 0.7 (0.1-1.2) X10*3/uL Eos # (Auto) 0.0 (0.0-0.4) X10*3/uL Baso # (Auto) 0.0 (0.0-0.2) X10*3/uL Abs Immat Gran (auto) 0.03 (0.00-0.03) X10*3/uL Absolute Neuts (auto) 6.1 (2.0-8.3) x10*3/uL Absolute Nucleated RBC 0.000 (0.0-0.012) X10*3/uL Nucleated RBC % (auto) 0.0 (0.0-0.2) /100WBC Sodium 134 L (135-145) mmol/L Potassium 3.8 (3.3-5.1) mmol/L Chloride 99 (96-108) mmol/L Carbon Dioxide 26 (22-29) mmol/L Anion Gap 13 (12-20) BUN 9 (9-16) mg/dL Creatinine 0.71 (0.5-1.4) mg/dL Estim Creat Clear Calc 145.6 Estimated GFR > 60 Random Glucose 175 H (60-115) mg/dL Calcium 9.9 (8.4-10.2) mg/dL Magnesium 1.6 (1.6-2.6) mg/dL Total Bilirubin 0.3 (0.0-1.0) mg/dL AST 132 H (5-31) U/L ALT 86 H (0-31) U/L Alkaline Phosphatase 95 (39-117) U/L Troponin I High Sens 6.2 D (<3.5-17.0) ng/L Total Protein 7.4 (6.5-8.0) g/dL Albumin 4.5 (3.5-5.0) g/dL Influenza Type A (PCR) POSITIVE A (Negative) Influenza Type B (PCR) NEGATIVE (Negative) RSV RNA Qual (PCR) NEGATIVE (Negative) SARS-CoV-2 RNA (RT-PCR) NEGATIVE (Negative) External Record Review External record reviewed: Inpatient record Prescription Management I considered prescription management with: Pain Medication and Antiviral Chronic Conditions Patient?s care impacted by: Other (liver disease) Social Determinants Patient?s care significantly limited by Social Determinants of Health including: Other Social Determinant of Health Discharge Plan Discharge Clinical Impression: Influenza A Patient Disposition: Home, Self-Care Instructions: Influenza (ED) Additional Instructions: Keep your mask on if you have to go into public for any reason while you are ill. Use Tylenol and Motrin around the clock for fever and body aches. Use Zofran (ondansetron) as needed for nausea. Take Tamiflu for the next 5 days. Return to the emergency department with any new or worsening symptoms including: Worsening shortness of breath, continued fevers despite medications, inability to tolerate food or drink. Call 911 with any medical emergency. Prescriptions: New oseltamivir [Tamiflu] 75 mg capsule 75 mg PO BID 5 Days Qty: 10 0RF ondansetron 4 mg tablet,disintegrating 4 mg PO Q8H PRN (Reason: nausea and vomiting) Qty: 10 0RF albuterol sulfate 90 mcg/actuation aerosol powdr breath activated 2 inh inhalation Q4H PRN (Reason: shortness of breath) Qty: 1 0RF No Action trazodone 50 mg tablet 50 mg PO BEDTIME PRN (Reason: sleep) 90 Days Qty: 90 0RF hydroxychloroquine 200 mg tablet 400 mg PO DAILY 90 Days Qty: 180 1RF prednisone 5 mg tablet 5 mg PO DIRECTED Qty: 70 0RF Rx Instructions: Take 4 tablet daily 7 days, 3 tablet daily 7 days, 2 tablet daily 7 days, 1 tablet daily 7 days. Take prednisone with food. lidocaine [Lidoderm] 5 % adhesive patch,medicated 1 patch topical DAILY Qty: 15 0RF Rx Instructions: leave on most painful area for up to 12 hrs cyclobenzaprine 10 mg tablet 10 mg PO TID PRN (Reason: muscle spasm) Qty: 14 0RF lidocaine [Lidoderm] 5 % adhesive patch,medicated 1 patch topical DAILY Qty: 15 0RF Rx Instructions: leave on most painful area for up to 12 hrs azithromycin 250 mg tablet See Rx Instructions .ROUTE .COMPLEX Qty: 6 0RF Rx Instructions: For 250 mg dose pack: take 500 mg today (day 1), then 250 mg for 4 days (days 2-5) ibuprofen 600 mg tablet 600 mg PO BID PRN (Reason: pain) Qty: 60 2RF hydrocortisone valerate 0.2 % cream 1 appl topical TID Qty: 60 1RF Stand Alone Forms: Work/School Release Interventions: ED Discharge Assessment Last Done: 07/30/25 02:18 Discharge Date/Time: 07/30/25 02:19 Print Language: Slovak
[2025-07-30 02:18] VITALS: BP 188/91; PULSE 136; RESP 22; TEMP 37.9; O2SAT 94
== END 2025-07-30 02:19 | disposition home or self-care (01) ==
PROVIDERS: Emergency Provider Emergency Medicine; PCP Nurse Practitioner Family
DX: J10.1 Influenza due to other identified influenza virus with other respiratory manifestations (principal); M79.10 Myalgia, unspecified site; R06.02 Shortness of breath; R07.9 Chest pain, unspecified; R00.0 Tachycardia, unspecified; F17.200 Nicotine dependence, unspecified, uncomplicated; Z71.6 Tobacco abuse counseling
CPT/HCPCS: 36415; 80053; 83735; 84484; 85025; 87637; 93005; 99283

== ENCOUNTER → 2025-07-29 22:57 | Outpatient (BNV) | payer OTHER, SELFPAY | PROVIDERS: Emergency Provider Emergency Medicine; PCP Nurse Practitioner Family; Visit Provider Internal Medicine Cardiovascular Disease | DX: R00.0 Tachycardia, unspecified (principal) | CPT/HCPCS: 93010 ==